=== PATIENT | male | born 1930 | race Caucasian/White ===

== ENCOUNTER 2022-05-30 12:14 | Inpatient (IN) ==
[2022-05-30] MEDS ORDERED: HALOPERIDOL LACTATE 5 MG/ML 1 ML VIAL IM STA (12:53)
[2022-05-30] MEDS ORDERED: HALOPERIDOL LACTATE 5 MG/ML 1 ML VIAL ONE (12:53)
[2022-05-30] MEDS ORDERED: SODIUM CHLORIDE 0.9% 500 ML IV SCH (13:00)
--- NOTE | 2022-05-30 13:16 | Emergency Department Note ---
Impression & Plan Dementia, Altered mental status, Agitation due to dementia ED Provider Note NAME: CRISTOPHER CASTELLANOS JR AGE: 89 SEX: M : 1930 ARRIVES VIA: Ambulance INFORMANT: Patient, EMS personnel, the family members ED PROVIDER(S): Julio Nicole DO CHIEF COMPLAINT: Altered mental status HPI: The patient is an 89-year-old male who presented to the emergency department by ambulance. The patient reportedly has been more combative and more confused especially over the last 24 to 48 hours. History was obtained from the prehospital personnel. The police as well as prehospital personnel were summoned to the patient's home. The family called the primary care physician and were advised to bring the patient to the emergency department because of his symptoms. There is no reported trauma. The patient himself does not offer any complaints. He denies having any nausea or vomiting. He denies having any trauma or fevers. Reportedly the patient was recently diagnosed with dementia. The initial call was for a mental health evaluation. ROS: See above HPI for pertinent positives & negatives. A total of 10 systems reviewed and were otherwise negative. PAST MEDICAL HISTORY: See Below PAST SURGICAL HISTORY: See Below FAMILY HISTORY: See Below SOCIAL HISTORY: See Below HOME MEDICATIONS: See Below ALLERGIES: See Below VITALS: See Below PHYSICAL EXAMINATION: GENERAL: The patient is awake and alert. He is very anxious appearing and combative. He is fighting with police as well as prehospital personnel. EYES: The conjunctivae are clear. The pupils are round and reactive. EARS, NOSE, MOUTH AND THROAT: The nose is without any evidence of any deformity. NECK: The neck is nontender and supple. RESPIRATORY: Normal respiratory effort is noted there is no evidence of wheezing rhonchi or rales CARDIOVASCULAR: Tachycardic but regular heart sounds were noted auscultation. There is no definite murmur. GASTROINTESTINAL: The abdomen was soft and nondistended. There was some tenderness to palpation but no guarding rigidity. MUSCULOSKELETAL/EXTREMITIES: There is no evidence of gross deformity full range of motion is noted in the hips and shoulders. SKIN: Skin tears were noted in the right upper extremity. NEUROLOGIC: Patient is awake and oriented to person. He thinks the year is 2021. He is moving all extremities well. No facial droop was noted. MEDICAL DECISION MAKING: The patient is an 89-year-old male who presented to the emergency department for agitation. There is very little history obtained from the patient himself. Prehospital personnel report that the patient has had agitation and combative behavior at home. He does have a history of underlying dementia. The patient does not have any acute findings on CT of the head. He was hypertensive. The patient required restraint chemically as well as physically. The patient was reevaluated multiple times. On reevaluation he was significantly improved and at this time is much more calm. I do feel the patient would not be a good candidate for outpatient management of this condition. For this reason I discussed his case with the on-call [facility]. They have agreed to evaluate the patient in the emergency department for further management and disposition. After the patient was evaluated by the [facility] it was determined the patient was actually a [facility] patient. For this reason I also [facility] Triage Nursing notes reviewed. Prior medical records reviewed Vital Signs: reviewed and remarkable for bradycardia. Differential diagnosis: Infection, hypoglycemia, electrolyte abnormalities, overdose, toxicologic, cardiac sources, intracerebral event, neurologic, trauma, as well as other pathologies. ER treatment provided: See below Diagnostics interpreted by me: ECG: EKG was obtained in the emergency department. My interpretation is sinus rhythm at 96 bpm. PVCs were noted. LVH was suggested by voltage criteria. There were no acute ST segment abnormalities noted. This was compared to a tracing from December 22, 2014. No changes were noted. Cardiac Monitoring: An order was placed for continuous cardiac monitoring. The monitor shows a rate of 58 bpm with sinus bradycardia. Laboratory studies: As stated above and show below. Imaging studies: See below Radiographic imaging was reviewed by myself Consultation(s): I discussed this case with Dr. Arechiga who is on-call for the [facility]. I discussed this case with Sara who [facility] They will evaluate the patient in the emergency department. ED COURSE: Procedures: none Critical Care: I have personally spent greater than 45 minutes of critical care time in the direct management of this patient. This includes bedside care, interpretation of diagnostic studies, and testing, discussion with consultants, patient, and family members, and other required patient management activities. This 45 minutes is in excess of all separately billable procedures. Past Med/Surg History Medical History (Updated 05/30/22 @ 16:28 by Julio Nicole DO) Chest pain Irritation of both eyes Prostate ca Surgical History S/P cholecystectomy Family History Other Family history non-contributory Social History Smoking Status: Former smoker Tobacco Type: Cigarettes Feels Safe at Home: Yes Allergies Allergies Allergy/AdvReac Type Severity Reaction Status Date / Time No Known Allergies Allergy Unknown Verified 05/30/22 15:32 Home Meds Home Medications Medication Instructions Recorded Confirmed donepezil 10 mg tablet 10 mg PO DAILY 05/30/22 05/30/22 Results & Data (ED) Vital Signs Vital Signs - 24 hr 05/30/22 13:25 05/30/22 13:26 05/30/22 13:26 Temperature Source Oral Pulse Rate 68 Pulse Rate [Apical] Respiratory Rate 20 Blood Pressure 159/88 H Blood Pressure [Left Arm] Blood Pressure Mean 111 Blood Pressure Mean [Left Arm] Pulse Oximetry 93 Oxygen Delivery Method Room Air Sepsis Recent Fever Within 48 Hours No Sepsis New/Unexplained Change in Mental Status Yes Sepsis Action Taken by Nursing No Action Required 05/30/22 15:46 Temperature Source Pulse Rate Pulse Rate [Apical] 58 L Respiratory Rate 18 Blood Pressure Blood Pressure [Left Arm] 176/80 H Blood Pressure Mean Blood Pressure Mean [Left Arm] 112 Pulse Oximetry 94 Oxygen Delivery Method Room Air Sepsis Recent Fever Within 48 Hours Sepsis New/Unexplained Change in Mental Status Sepsis Action Taken by [facility] Medications Current Medication List: was personally reviewed by me Laboratory Data Attestation: I reviewed the patient's lab results. 05/30/22 13:15 05/30/22 13:15 Lab Results 05/30/22 05/30/22 05/30/22 Range/Units 13:15 13:15 13:15 WBC 7.64 (4.8-10.8) K/ul RBC 4.58 L (4.63-6.08) M/uL Hgb 14.8 (14.0-18.0) g/dl Hct 43.0 (40.1-51.0) % MCV 93.9 (80.0-100.0) fL MCH 32.3 (25.0-34.0) pg MCHC 34.4 (32.0-36.0) g/dL RDW Std Deviation 45.1 (36.4-46.3) fL RDW Coeff of Oracio 13.1 (11.5-14.5) % Plt Count 188 (130-400) K/uL MPV 10.7 (9.4-12.4) fL Immature Gran % (Auto) 0.4 % Neut % (Auto) 81.4 % Lymph % (Auto) 7.5 % [place] % (Auto) 9.6 % Eos % (Auto) 0.7 % Baso % (Auto) 0.4 % Neut # (Auto) 6.23 (1.4-6.5) K/uL Lymph # (Auto) 0.57 L (1.2-3.4) K/uL [place] # (Auto) 0.73 (0.24-0.82) K/uL Eos # (Auto) 0.05 (0-0.50) K/uL Baso # (Auto) 0.03 (0-0.2) K/uL Immature Gran # (Auto) 0.03 H (0.00-0.02) K/uL PT 10.9 (9.0-12.0) Seconds INR 1.0 (0.9-1.1) APTT 28.8 (21.0-31.0) Seconds PTT Ratio 1.0 Sodium 141 (136-145) mmol/L Potassium 4.4 (3.5-5.1) mmol/L Chloride 104 (98-107) mmol/L Carbon Dioxide 29 (21-32) mmol/L Anion Gap 8 (3-11) BUN 29 H (6-23) mg/dl Creatinine 0.88 (0.6-1.4) mg/dl Est Cr Clr Drug Dosing 43.5 ml/min Est GFR ( Amer) 88.3 ml/min Est GFR (Non-Af Amer) 76.2 ml/min BUN/Creatinine Ratio 33.0 H (10-20) Glucose 147 H (70-99(Fasting)) mg/dl Calcium 9.3 (8.5-10.1) mg/dl Magnesium 2.2 (1.7-2.4) mg/dl Total Bilirubin 0.6 (0.2-1.0) mg/dl AST 22 (13-39) U/L ALT 20 (7-52) U/L Alkaline Phosphatase 86 (34-104) U/L Total Creatine Kinase 203 (30-223) U/L Troponin I High Sens 21.2 H (0-20) pg/ml Total Protein 7.1 (6.0-8.3) gm/dl Albumin 4.3 (3.4-5.0) gm/dl Globulin 2.8 (2.5-4.0) gm/dl Albumin/Globulin Ratio 1.5 (0.9-2) TSH (0.300-4.500) uIu/ml Ethyl Alcohol mg/dL (<10.0) mg/dl SARS-CoV-2, RNA, NAAT (NEGATIVE) 05/30/22 05/30/22 05/30/22 Range/Units 13:15 13:15 14:06 WBC (4.8-10.8) K/ul RBC (4.63-6.08) M/uL Hgb (14.0-18.0) g/dl Hct (40.1-51.0) % MCV (80.0-100.0) fL MCH (25.0-34.0) pg MCHC (32.0-36.0) g/dL RDW Std Deviation (36.4-46.3) fL RDW Coeff of Oracio (11.5-14.5) % Plt Count (130-400) K/uL MPV (9.4-12.4) fL Immature Gran % (Auto) % Neut % (Auto) % Lymph % (Auto) % [place] % (Auto) % Eos % (Auto) % Baso % (Auto) % Neut # (Auto) (1.4-6.5) K/uL Lymph # (Auto) (1.2-3.4) K/uL [place] # (Auto) (0.24-0.82) K/uL Eos # (Auto) (0-0.50) K/uL Baso # (Auto) (0-0.2) K/uL Immature Gran # (Auto) (0.00-0.02) K/uL PT (9.0-12.0) Seconds INR (0.9-1.1) APTT (21.0-31.0) Seconds PTT Ratio Sodium (136-145) mmol/L Potassium (3.5-5.1) mmol/L Chloride (98-107) mmol/L Carbon Dioxide (21-32) mmol/L Anion Gap (3-11) BUN (6-23) mg/dl Creatinine (0.6-1.4) mg/dl Est Cr Clr Drug Dosing ml/min Est GFR ( Amer) ml/min Est GFR (Non-Af Amer) ml/min BUN/Creatinine Ratio (10-20) Glucose (70-99(Fasting)) mg/dl Calcium (8.5-10.1) mg/dl Magnesium (1.7-2.4) mg/dl Total Bilirubin (0.2-1.0) mg/dl AST (13-39) U/L ALT (7-52) U/L Alkaline Phosphatase (34-104) U/L Total Creatine Kinase (30-223) U/L Troponin I High Sens (0-20) pg/ml Total Protein (6.0-8.3) gm/dl Albumin (3.4-5.0) gm/dl Globulin (2.5-4.0) gm/dl Albumin/Globulin Ratio (0.9-2) TSH 2.301 (0.300-4.500) uIu/ml Ethyl Alcohol mg/dL < 10.0 (<10.0) mg/dl SARS-CoV-2, RNA, NAAT NEGATIVE (NEGATIVE) Administered Medications Sodium Chloride (Nss 1000ml) 1,000 mls @ 999 mls/hr IV .Q1H1M ONE Stop: 05/30/22 17:14 Last Admin: 05/30/22 16:41 Dose: 999 mls/hr Documented By: OL Discontinued Medications Haloperidol Lactate (Haloperidol Lactate 5 Mg/Ml 1 Ml Vial) Confirm Administered Dose 10 mg .ROUTE .STK-MED ONE Stop: 05/30/22 12:54 Last Admin: 05/30/22 14:20 Dose: Not Given Documented By: MADAN Haloperidol Lactate (Haloperidol Lactate 5 Mg/Ml 1 Ml Vial) 10 mg IM NOW STA Stop: 05/30/22 12:54 Last Admin: 05/30/22 13:04 Dose: 10 mg Documented By: MADAN Sodium Chloride (Nss) 500 mls @ 999 mls/hr IV .Q31M JASON Stop: 05/30/22 13:30 Last Infusion: 05/30/22 15:02 Dose: 0 mls/hr Documented By: Admin: 05/30/22 14:20 Dose: 999 mls/hr Documented By: MADAN Lorazepam (Lorazepam 2 Mg/1 Ml Vial) 1 mg IV NOW STA Stop: 05/30/22 14:05 Last Admin: 05/30/22 14:19 Dose: 1 mg Documented By: MADAN Midazolam HCl (Midazolam Hcl 1 Mg/Ml 2ml Vial) Confirm Administered Dose 2 mg .ROUTE .STK-MED ONE Stop: 05/30/22 15:04 Last Admin: 05/30/22 16:08 Dose: Not Given Documented By: ESTER Midazolam HCl (Midazolam Hcl 1 Mg/Ml 2ml Vial) 1 mg IV NOW STA Stop: 05/30/22 15:56 Last Admin: 05/30/22 15:18 Dose: 1 mg Documented By: ESTER Imaging Data Radiologist's Impression: Abdomen/Pelvis CT 05/30/22 12:53 CT SCAN OF THE ABDOMEN AND PELVIS WITHOUT IV CONTRAST CLINICAL HISTORY: Change in mental status. COMPARISON STUDY: Abdominal radiographs dated 07/11/2020. Chest CT dated 12/22/2014. TECHNIQUE: CT scan of the abdomen and pelvis is performed from the lung bases to the proximal femora. Images are reviewed in the axial, sagittal, and coronal planes. IV contrast was not administered for this examination as per the referring clinician. Note that the examination was performed in significantly suboptimal fashion without IV contrast. The examination is significantly degraded by motion artifact, as well as by streak artifact from the arms which could not be elevated above the abdomen. A dose lowering technique was utilized adhering to the principles of ALARA. CT DOSE: 2290.48 mGy.cm FINDINGS: Lung bases: There is mild aneurysmal dilatation of the ascending thoracic aorta. This measures up to 4.0 cm in diameter. The heart is enlarged and without pericardial effusion. The coronary arteries are densely calcified. The main pulmonary arteries are significantly dilated suggesting pulmonary artery hypertension. Evaluation of the lung bases is significantly degraded by motion artifact. Emphysematous change is suspected. There is an 8 mm right upper lobe pulmonary nodule in the minor fissure seen on image #55. This is unchanged from [address] and of doubtful significance. Scarring/atelectasis is present at both lung bases. No airspace consolidation or pleural effusion is identified. Liver: Evaluation of the liver is degraded by streak artifact. The unenhanced liver is normal in size, contour, and attenuation. There is no intrahepatic biliary ductal dilatation. Gallbladder: Surgically absent noting clips in the gallbladder fossa. Spleen: Normal in size and attenuation. Pancreas: The unenhanced pancreas is grossly unremarkable. Adrenal glands: Unremarkable. Kidneys: The unenhanced kidneys demonstrate cortical atrophy and are without hydronephrosis. No renal calculi are clearly identified. Bilateral renal cysts measure up to 3.5 cm. Abdominal vasculature: There is advanced atherosclerotic calcification and ectasia of the abdominal aorta. There is calcified intraluminal thrombus versus a chronic dissection of the mid abdominal aorta seen on image #216. Bowel: There is mild colonic diverticulosis without CT evidence of acute diverticulitis. No bowel obstruction is seen. There is moderate constipation. The appendix is normal as visualized. Peritoneum: There is no intraperitoneal free air or abdominal ascites. Lymphadenopathy: None. Pelvic viscera: The prostate gland is surgically absent. The bladder is significantly distended but otherwise grossly unremarkable. Surgical clips are seen throughout the pelvis. Skeletal structures: The skeletal structures are osteopenic. No lytic or blastic lesions are seen. There is advanced lumbosacral spondylosis. Bilateral pars defects are seen at L4 with grade 1 anterolisthesis at L4-L5. There is an age- indeterminate but chronic-appearing superior end plate compression deformity of L1. IMPRESSION: 1. Significantly suboptimal examination without IV contrast. There is also severe streak and motion artifact. 2. No acute infectious or inflammatory findings are identified in the abdomen or pelvis. 3. Cardiomegaly and emphysema. 4. Moderate constipation. 5. Bladder distention. 6. Mild aneurysmal dilatation of the ascending thoracic aorta which measures up to 4.0 cm. 7. Additional chronic findings as above. ACT 112: Negative or not required by law. Electronically signed by: Se Lester M.D. 05/30/2022 3:44 PM Chest X-Ray 05/30/22 12:53 XR chest 1V portable CLINICAL HISTORY: weakness COMPARISON STUDY: Chest CT December 22, 2014 and chest radiograph July 11, 2020. FINDINGS: Elevation of the right hemidiaphragm is again noted. There is mild cardiomegaly without evidence for pulmonary edema. There is no pneumothorax or pleural effusion. No consolidation is identified to suggest pneumonia. Right infrahilar opacity likely reflects summation artifact. IMPRESSION: No definite acute findings. A right infrahilar density likely reflects summation artifact. Consolidation could appear similar. ACT 112: Negative or not required by law. Electronically signed by: Kulwant Barriga M.D. 05/30/2022 1:[address] 05/30/22 12:[address] DOSE: HISTORY: Altered mental status. TECHNIQUE: Multiaxial CT images of the head were performed without the use of intravenous contrast. Automated exposure control was utilized for this study. A dose lowering technique was utilized adhering to the principles of ALARA. Comparison: Brain MRI 08/20/2010. Findings: Significant motion artifact. The paranasal sinuses and mastoid air cells are clear. The calvarium and skull base are intact. There is no mass, hematoma, midline shift, acute infarct. White matter hypodensity is nonspecific but suggestive of microvascular ischemic change. The ventricles and sulci demonstrate mild age-related involutional changes. Impression: Significant motion artifact. No definite acute intracranial abnormality. ACT 112: Negative or not required by law. Electronically signed by: Nilesh Meadows M.D. 05/30/2022 3:30 PM Discharge Plan Visit Data Chief Complaint: Mental Health Evaluation Stated Complaint: AGGRESSIVE, MHID ED Provider: Julio Nicole Discharge Problem: Dementia, Altered mental status, Agitation due to dementia Patient Disposition: Being Evaluated by Hospitalist Forms Stand Alone Forms: [facility], Suicide Prevention Resources Prescriptions Prescriptions: No Action donepezil 10 mg tablet 10 mg PO DAILY Rx Instructions: FILLED 05/22/22 FOR 30 DAYS/30 TABS. Referrals Referrals: Butch Ratliff DO [Physician] - : Dementia Qualifiers: Dementia type: unspecified type Dementia severity: unspecified severity Dementia behavioral or psychological symptom: unspecified whether behavioral, psychotic, or mood disturbance or anxiety Qualified Code(s): F03.90 - Unspecified dementia, unspecified severity, without behavioral disturbance, psychotic disturbance, mood disturbance, and anxiety Altered mental status Qualifiers: Altered mental status type: unspecified Qualified Code(s): R41.82 - Altered mental status, unspecified
--- NOTE | 2022-05-30 13:35 | XRay Report ---
XR chest 1V portable CLINICAL HISTORY: weakness COMPARISON STUDY: Chest CT December 22, 2014 and chest radiograph July 11, 2020. FINDINGS: Elevation of the right hemidiaphragm is again noted. There is mild cardiomegaly without estuardo dence for pulmonary edema. There is no pneumothorax or pleural effusion. No consolidation is identifi ed to suggest pneumonia. Right infrahilar opacity likely reflects summation artifact. IMPRESSION: No definite acute findings. A right infrahilar density likely reflects summation artifac t. Consolidation could appear similar. ACT 112: Negative or not required by law. Electronically signed by: Kulwant Barriga M.D. 05/30/2022 1:33 PM
[2022-05-30 13:38] LABS: Basophils # (auto) 0.03 K/uL (0-0.2); Basophils % (auto) 0.4 %; Eosinophils # (auto) 0.05 K/uL (0-0.50); Eosinophils % (auto) 0.7 %; Hemoglobin 14.8 g/dl (14.0-18.0); Immature Granulocytes # (auto) 0.03 K/uL (0.00-0.02); Immature Granulocytes % (auto) 0.4 %; Lymphocytes # (auto) 0.57 K/uL (1.2-3.4); Lymphocytes % (auto) 7.5 %; Mean Corpuscular Hemoglobin 32.3 pg (25.0-34.0); Mean Corpuscular Hgb Conc 34.4 g/dL (32.0-36.0); Mean Corpuscular Volume 93.9 fL (80.0-100.0); Mean Platelet Volume 10.7 fL (9.4-12.4); Monocytes # (auto) 0.73 K/uL (0.24-0.82); Monocytes % (auto) 9.6 %; Neutrophils # (auto) 6.23 K/uL (1.4-6.5); Neutrophils % (auto) 81.4 %; Platelet Count 188 K/uL (130-400); RDW Coefficient of Variation 13.1 % (11.5-14.5); RDW Standard Deviation 45.1 fL (36.4-46.3); Red Blood Count 4.58 M/uL (4.63-6.08); White Blood Count 7.64 K/ul (4.8-10.8)
[2022-05-30 13:49] LABS: Partial Thromboplastin Time 28.8 Seconds (21.0-31.0); Prothrombin Time 10.9 Seconds (9.0-12.0)
[2022-05-30] MEDS ORDERED: LORazepam 2 MG/1 ML VIAL IV STA (14:04)
[2022-05-30 14:08] LABS: Albumin Globulin Ratio 1.5 (0.9-2); Albumin Level 4.3 gm/dl (3.4-5.0); Bilirubin,Total 0.6 mg/dl (0.2-1.0); Calcium 9.3 mg/dl (8.5-10.1); Creatinine Clr Calc Pharmacy 43.5 ml/min; Est GFR (African American) 88.3 ml/min; Est GFR (Non-African American) 76.2 ml/min; Globulin 2.8 gm/dl (2.5-4.0); Magnesium 2.2 mg/dl (1.7-2.4); Potassium 4.4 mmol/L (3.5-5.1); Total Protein 7.1 gm/dl (6.0-8.3)
[2022-05-30 14:10] LABS: Troponin I High Sensitivity 21.2 pg/ml (0-20)
[2022-05-30] MEDS ORDERED: MIDAZOLAM HCL 1 MG/ML 2ML VIAL ONE (15:03)
--- NOTE | 2022-05-30 15:31 | CT Scan Report ---
HEAD CT NONCONTRAST CT DOSE: HISTORY: Altered mental status. TECHNIQUE: Multiaxial CT images of the head were performed without the use of intravenous contrast. A utomated exposure control was utilized for this study. A dose lowering technique was utilized adheri ng to the principles of ALARA. Comparison: Brain MRI 08/20/2010. Findings: Significant motion artifact. The paranasal sinuses and mastoid air cells are clear. The arnaud varium and skull base are intact. There is no mass, hematoma, midline shift, acute infarct. White mat ter hypodensity is nonspecific but suggestive of microvascular ischemic change. The ventricles and otero lci demonstrate mild age-related involutional changes. Impression: Significant motion artifact. No definite acute intracranial abnormality. ACT 112: Negative or not required by law. Electronically signed by: Nilesh Meadows M.D. 05/30/2022 3:30 PM
--- NOTE | 2022-05-30 15:45 | CT Scan Report ---
CT SCAN OF THE ABDOMEN AND PELVIS WITHOUT IV CONTRAST CLINICAL HISTORY: Change in mental status. COMPARISON STUDY: Abdominal radiographs dated 07/11/2020. Chest CT dated 12/22/2014. TECHNIQUE: CT scan of the abdomen and pelvis is performed from the lung bases to the proximal femora. Images are reviewed in the axial, sagittal, and coronal planes. IV contrast was not administered for this examination as per the referring clinician. Note that the examination was performed in signific antly suboptimal fashion without IV contrast. The examination is significantly degraded by motion art ifact, as well as by streak artifact from the arms which could not be elevated above the abdomen. A d ose lowering technique was utilized adhering to the principles of ALARA. CT DOSE: 2290.48 mGy.cm FINDINGS: Lung bases: There is mild aneurysmal dilatation of the ascending thoracic aorta. This measures up to 4.0 cm in diameter. The heart is enlarged and without pericardial effusion. The coronary arteries are densely calcified. The main pulmonary arteries are significantly dilated suggesting pulmonary artery hypertension. Evaluation of the lung bases is significantly degraded by motion artifact. Emphysemato us change is suspected. There is an 8 mm right upper lobe pulmonary nodule in the minor fissure seen on image #55. This is unchanged from [address] and of doubtful significance. Scarring/atelectasis is present at both lung bases. No airspace consolidation or pleural effusion is identified. Liver: Evaluation of the liver is degraded by streak artifact. The unenhanced liver is normal in size , contour, and attenuation. There is no intrahepatic biliary ductal dilatation. Gallbladder: Surgically absent noting clips in the gallbladder fossa. Spleen: Normal in size and attenuation. Pancreas: The unenhanced pancreas is grossly unremarkable. Adrenal glands: Unremarkable. Kidneys: The unenhanced kidneys demonstrate cortical atrophy and are without hydronephrosis. No renal calculi are clearly identified. Bilateral renal cysts measure up to 3.5 cm. Abdominal vasculature: There is advanced atherosclerotic calcification and ectasia of the abdominal a davin. There is calcified intraluminal thrombus versus a chronic dissection of the mid abdominal aorta seen on image #216. Bowel: There is mild colonic diverticulosis without CT evidence of acute diverticulitis. No bowel obs truction is seen. There is moderate constipation. The appendix is normal as visualized. Peritoneum: There is no intraperitoneal free air or abdominal ascites. Lymphadenopathy: None. Pelvic viscera: The prostate gland is surgically absent. The bladder is significantly distended but o therwise grossly unremarkable. Surgical clips are seen throughout the pelvis. Skeletal structures: The skeletal structures are osteopenic. No lytic or blastic lesions are seen. Th ere is advanced lumbosacral spondylosis. Bilateral pars defects are seen at L4 with grade 1 anterolis thesis at L4-L5. There is an age-indeterminate but chronic-appearing superior end plate compression d eformity of L1. IMPRESSION: 1. Significantly suboptimal examination without IV contrast. There is also severe streak and motion a rtifact. 2. No acute infectious or inflammatory findings are identified in the abdomen or pelvis. 3. Cardiomegaly and emphysema. 4. Moderate constipation. 5. Bladder distention. 6. Mild aneurysmal dilatation of the ascending thoracic aorta which measures up to 4.0 cm. 7. Additional chronic findings as above. ACT 112: Negative or not required by law. Electronically signed by: Se Lester M.D. 05/30/2022 3:44 PM
[2022-05-30] MEDS ORDERED: MIDAZOLAM HCL 1 MG/ML 2ML VIAL IV STA (15:55)
[2022-05-30] MEDS ORDERED: SODIUM CHLORIDE 0.9% 1000ML 1,000 ML IV ONE (16:14)
--- NOTE | 2022-05-30 16:14 | Electrocardiogram Report ---
Test Reason : Blood Pressure : / mmHG Vent. Rate : 096 BPM Atrial Rate : 096 BPM P-R Int : 140 ms QRS Dur : 080 ms QT Int : 352 ms P-R-T Axes : 044 002 060 degrees QTc Int : 444 ms Poor data quality, interpretation may be adversely affected Sinus rhythm with occasional Premature atrial complexes Otherwise normal ECG When compared with ECG of 22-DEC-2014 06:30, Vent. rate has increased BY 55 BPM QT has lengthened Confirmed by Julio Blank ([id number]) on 05/30/2022 4:13:33 PM Referred By: REFERRED SELF Confirmed By:Julio Blank
[2022-05-30] MEDS ORDERED: OLANZapine 10 MG/2.1 ML SDV IM STA (17:52)
[2022-05-30 18:10] LABS: Appearance Urine Clear (Clear); Bilirubin Urine Negative (Negative); Blood Urine Negative (Negative); Color Urine Yellow; Glucose Urine UA Negative (Negative); Ketones Urine Trace (Negative); Leukocyte Esterase Urine Negative (Negative); Nitrite Urine Negative (Negative); Protein Urine Negative (Negative); Specific Gravity Urine 1.019 (1.000-1.030); Urobilinogen Urine Negative (Negative); pH Urine 5.5 (4.5-7.5)
--- NOTE | 2022-05-30 18:59 | History & Physical Report ---
Date of Service May 30, 2022 Assessment & Plan (1) Agitation due to dementia: Plan: Admit to [facility] Patient sent to ED today for agitation at home. Patient lives with his twin sister. In the ED, patient continues to be extremely aggressive and attempting to hit staff, refuse care despite IM Haldol 10 mg, IV lorazepam 1 mg, IV midazolam 1 mg. Found to have significant urinary retention which may be contributing to patient's agitation. Hold home donepezil due to urinary retention, start Seroquel 25 mg HS, IM Zyprexa as needed Psych consult Case management to follow, likely will need placement (2) Urinary retention: (3) Urethral stricture: Plan: History of prostate cancer s/p prostatectomy and urethral stricture. Per review of records, patient previously used to self cath. Bladder scan showed > 1L, Hernández placed Hold donepezil Void trial as appropriate, may need urology eval DVT prophylaxis SCDs, avoid pharmacologic prophylaxis due to significant aggression History of Present Illness Chief Complaint: Agitation Primary Care Provider: Shabana Justin MD 89-year-old male with PMH dementia, prostate cancer s/p prostatectomy, urethral stricture, and other problems listed below who presents to the ED for evaluation of agitation. History currently unobtainable from the patient. History obtained from review of medical record as well as patient's twin sister with whom he lives by Dr. Fan. Patient has been having increased agitation over the past few weeks. EMS called by sister today due to agitation. In the ED, patient received IM Haldol, IV lorazepam, IV Versed, IVF. He continues to have significant agitation. He was found to have urinary retention and Hernández catheter was placed. Labs unremarkable. Allergies Allergy/AdvReac Type Severity Reaction Status Date / Time No Known Allergies Allergy Unknown Verified 05/30/22 15:32 Home Medications Medication Instructions Recorded Confirmed Type donepezil 10 mg tablet 10 mg PO DAILY 05/30/22 05/30/22 History Past Med/Surg History Medical History Dementia Prostate ca Urethral stricture Surgical History H/O hernia repair History of prostatectomy S/P cholecystectomy Family History Other Family history non-contributory Social History Smoking Status: Former smoker Tobacco Type: Cigarettes Feels Safe at Home: Yes Review of Systems Review of Systems: Unobtainable due to cognitive status Physical Exam Physical Exam: Limited physical exam due to patient attempting to hit staff Constitutional: WD/WN, vitals as above Respiratory: normal respiratory effort, lungs clear to auscultation Cardiovascular: Rate/Rhythm: regular rate and regular rhythm Vessels: normal peripheral pulses Extremities: no edema Skin: no rashes, warm and dry Neurologic: moves all extremities Psychiatric: Orientation: alert; + not oriented to person, + not oriented to place, + not oriented to time and + uncooperative Patient continually attempting to hit staff, refused care, agitated Results & Data Results & Data ([facility]) Vital Signs (Past 12 Hours) Vital Signs Pulse Pulse Resp BP BP Pulse Ox O2 Del Method 05/30/22 18:42 50 L 18 131/70 95 Room Air 05/30/22 17:00 98 H 18 159/89 H 95 Room Air 05/30/22 15:46 58 L 18 176/80 H 94 Room Air 05/30/22 13:26 68 20 159/88 H 93 05/30/22 13:25 Room Air Laboratory Results Short CBC 05/30/22 Range/Units 13:15 WBC 7.64 (4.8-10.8) K/ul Hgb 14.8 (14.0-18.0) g/dl Hct 43.0 (40.1-51.0) % Plt Count 188 (130-400) K/uL BMP 05/30/22 13:15 Sodium 141 Potassium 4.4 Chloride 104 Carbon Dioxide 29 BUN 29 H Creatinine 0.88 Glucose 147 H Calcium 9.3 Cardiac Enzymes 05/30/22 Range/Units 13:15 Total Creatine Kinase 203 (30-223) U/L Liver Function 05/30/22 Range/Units 13:15 Total Bilirubin 0.6 (0.2-1.0) mg/dl AST 22 (13-39) U/L ALT 20 (7-52) U/L Alkaline Phosphatase 86 (34-104) U/L Albumin 4.3 (3.4-5.0) gm/dl Urine 05/30/22 Range/Units Unknown Urine Color Yellow Urine Appearance Clear (Clear) Urine pH 5.5 (4.5-7.5) Ur Specific Goodman 1.019 (1.000-1.030) Urine Protein Negative (Negative) Urine Glucose (UA) Negative (Negative) Diagnostic Findings Abdomen/Pelvis CT 05/30/22 12:53 CT SCAN OF THE ABDOMEN AND PELVIS WITHOUT IV CONTRAST CLINICAL HISTORY: Change in mental status. COMPARISON STUDY: Abdominal radiographs dated 07/11/2020. Chest CT dated 12/22/2014. TECHNIQUE: CT scan of the abdomen and pelvis is performed from the lung bases to the proximal femora. Images are reviewed in the axial, sagittal, and coronal planes. IV contrast was not administered for this examination as per the referring clinician. Note that the examination was performed in significantly suboptimal fashion without IV contrast. The examination is significantly degraded by motion artifact, as well as by streak artifact from the arms which could not be elevated above the abdomen. A dose lowering technique was utilized adhering to the principles of ALARA. CT DOSE: 2290.48 mGy.cm FINDINGS: Lung bases: There is mild aneurysmal dilatation of the ascending thoracic aorta. This measures up to 4.0 cm in diameter. The heart is enlarged and without pericardial effusion. The coronary arteries are densely calcified. The main pulmonary arteries are significantly dilated suggesting pulmonary artery hypertension. Evaluation of the lung bases is significantly degraded by motion artifact. Emphysematous change is suspected. There is an 8 mm right upper lobe pulmonary nodule in the minor fissure seen on image #55. This is unchanged from [address] and of doubtful significance. Scarring/atelectasis is present at both lung bases. No airspace consolidation or pleural effusion is identified. Liver: Evaluation of the liver is degraded by streak artifact. The unenhanced liver is normal in size, contour, and attenuation. There is no intrahepatic biliary ductal dilatation. Gallbladder: Surgically absent noting clips in the gallbladder fossa. Spleen: Normal in size and attenuation. Pancreas: The unenhanced pancreas is grossly unremarkable. Adrenal glands: Unremarkable. Kidneys: The unenhanced kidneys demonstrate cortical atrophy and are without hydronephrosis. No renal calculi are clearly identified. Bilateral renal cysts measure up to 3.5 cm. Abdominal vasculature: There is advanced atherosclerotic calcification and ectasia of the abdominal aorta. There is calcified intraluminal thrombus versus a chronic dissection of the mid abdominal aorta seen on image #[id number]. Bowel: There is mild colonic diverticulosis without CT evidence of acute diverticulitis. No bowel obstruction is seen. There is moderate constipation. The appendix is normal as visualized. Peritoneum: There is no intraperitoneal free air or abdominal ascites. Lymphadenopathy: None. Pelvic viscera: The prostate gland is surgically absent. The bladder is significantly distended but otherwise grossly unremarkable. Surgical clips are seen throughout the pelvis. Skeletal structures: The skeletal structures are osteopenic. No lytic or blastic lesions are seen. There is advanced lumbosacral spondylosis. Bilateral pars defects are seen at L4 with grade 1 anterolisthesis at L4-L5. There is an age- indeterminate but chronic-appearing superior end plate compression deformity of L1. IMPRESSION: 1. Significantly suboptimal examination without IV contrast. There is also severe streak and motion artifact. 2. No acute infectious or inflammatory findings are identified in the abdomen or pelvis. 3. Cardiomegaly and emphysema. 4. Moderate constipation. 5. Bladder distention. 6. Mild aneurysmal dilatation of the ascending thoracic aorta which measures up to 4.0 cm. 7. Additional chronic findings as above. ACT 112: Negative or not required by law. Electronically signed by: Se Lester M.D. 05/30/2022 3:44 PM Chest X-Ray 05/30/22 12:53 XR chest 1V portable CLINICAL HISTORY: weakness COMPARISON STUDY: Chest CT December 22, 2014 and chest radiograph July 11, 2020. FINDINGS: Elevation of the right hemidiaphragm is again noted. There is mild cardiomegaly without evidence for pulmonary edema. There is no pneumothorax or pleural effusion. No consolidation is identified to suggest pneumonia. Right infrahilar opacity likely reflects summation artifact. IMPRESSION: No definite acute findings. A right infrahilar density likely reflects summation artifact. Consolidation could appear similar. ACT 112: Negative or not required by law. Electronically signed by: Kulwant Barriga M.D. 05/30/2022 1:[address] 05/30/22 12:[address] DOSE: HISTORY: Altered mental status. TECHNIQUE: Multiaxial CT images of the head were performed without the use of intravenous contrast. Automated exposure control was utilized for this study. A dose lowering technique was utilized adhering to the principles of ALARA. Comparison: Brain MRI 08/20/2010. Findings: Significant motion artifact. The paranasal sinuses and mastoid air cells are clear. The calvarium and skull base are intact. There is no mass, hematoma, midline shift, acute infarct. White matter hypodensity is nonspecific but suggestive of microvascular ischemic change. The ventricles and sulci demonstrate mild age-related involutional changes. Impression: Significant motion artifact. No definite acute intracranial abnormality. ACT 112: Negative or not required by law. Electronically signed by: Nilesh Meadows M.D. 05/30/2022 3:30 PM Code Status & VTE Plan VTE Prophylaxis Plan VTE Prophylaxis will be ordered: Yes Supervising Physician Co-Signing Physician Notes Patient seen and examined independently. Agree with above documentation by Sara BOYD. 89 yo M with PMHx of Alzheimer disease present with period of agitation. Lives with twin sister; Found to have urinary retention on physical examination. Hernández placed. Started on antipsychotics. psych consult for optimization of medications. Bowel regimen.
[2022-05-30] MEDS ORDERED: ACETAMINOPHEN 325 MG TAB PO PRN (19:35)
[2022-05-30] MEDS: D5W AND 1/2NSS 1,000 ML IV SCH (20:04)
[2022-05-30] MEDS ORDERED: QUEtiapine FUMARATE 25 MG TABLET PO SCH (21:00)
[2022-05-31] MEDS: OLANZapine 10 MG/2.1 ML SDV IM PRN ×2 (05:12→21:51)
[2022-05-31 06:48] LABS: Basophils # (auto) 0.03 K/uL (0-0.2); Basophils % (auto) 0.5 %; Eosinophils % (auto) 1.8 %; Hematocrit (blood only) 42.9 % (40.1-51.0); Hemoglobin 14.5 g/dl (14.0-18.0); Immature Granulocytes # (auto) 0.02 K/uL (0.00-0.02); Immature Granulocytes % (auto) 0.4 %; Lymphocytes # (auto) 0.59 K/uL (1.2-3.4); Lymphocytes % (auto) 10.5 %; Mean Corpuscular Hemoglobin 31.8 pg (25.0-34.0); Mean Corpuscular Hgb Conc 33.8 g/dL (32.0-36.0); Mean Corpuscular Volume 94.1 fL (80.0-100.0); Mean Platelet Volume 10.7 fL (9.4-12.4); Monocytes # (auto) 0.72 K/uL (0.24-0.82); Monocytes % (auto) 12.8 %; Neutrophils # (auto) 4.17 K/uL (1.4-6.5); Platelet Count 155 K/uL (130-400); RDW Coefficient of Variation 12.8 % (11.5-14.5); Red Blood Count 4.56 M/uL (4.63-6.08); White Blood Count 5.63 K/ul (4.8-10.8)
[2022-05-31 07:15] LABS: BUN Creatinine Ratio 20.3 (10-20); Calcium 8.8 mg/dl (8.5-10.1); Creatinine Clr Calc Pharmacy 51.7 ml/min; Est GFR (African American) 94.8 ml/min; Est GFR (Non-African American) 81.8 ml/min; Potassium 3.7 mmol/L (3.5-5.1)
[2022-05-31] MEDS: POLYETHYLENE (MIRALAX) 17 GM PACK PO SCH (08:26)
[2022-05-31] MEDS ORDERED: PNEUMOCOCCAL POLYSACCHARIDES 25 MCG/0.5 ML VIAL/SYR IM ONE (09:00)
[2022-05-31] MEDS ORDERED: INFLUENZA VACCINE HIGH DOSE PF 65+ 0.7 ML SYR IM ONE (09:00)
[2022-05-31] MEDS: D5W AND 1/2NSS 1,000 ML IV SCH (09:09)
--- NOTE | 2022-05-31 11:33 | Psychiatric Consultation ---
Date of Consultation May 31, 2022 Impression / Recommendations Impression This is a 89 yo old admitted for agitation and urinary retention. Diagnostically consistent with possible encephalopathy/delirium from urinary retention superimposed on dementia with behavioral disturbance. Goal in dementia is to avoid medication management of behaviors if possible by maximizing non- pharmacologic strategies for behavioral management. However, given worsening agitation/aggression agree with starting antipsychotic as risk/benefit profile now favors treatment. Note all antipsychotic medications carry black box warning for increased risk of all-cause mortality in setting of dementia. Zyprexa and seroquel can also contribute to urinary retention so recommend ongoing monitoring though Hernández catheter now in place. (1) Dementia with behavioral disturbance: (2) Urinary retention: (3) Major neurocognitive disorder: Plan -1-on-1 as needed at discretion of hospitalist given level of agitation -Agree with use of seroquel, given level of agitation consider titration to 50mg qhs and then option to add 25mg qAM if agitation persists. -Consider melatonin 3mg qhs if delirium component suspected -Continue medical workup to rule out and treat any underlying causes contributing to potential delirium, avoid or limit use of deliriogenic medications (benzodiazepines, opioids, anticholinergics) -Continue with delirium prevention measures: raising blinds during the day, closing at night, frequent re-orientation, contact with family/friends, explaining procedures/nursing care measures prior to physical contact, correct any hearing and visual impairments -For behavioral emergency: olanzapine 2.5 or 5 mg IM x 1 (DO NOT exceed 20mg per 24 hours, check EKG if repeated IM doses required, NEVER co-administer with IM or IV benzodiazepines). -Agree with primary team that if this does represent progression of dementia with increased behavioral disturbance then secure memory care placement may be preferred option vs return with sister Psych History Identifying Data 89 yo man with history of neurocognitive disorder and urinary retention/stricture admitted medically for increased agitation and urinary retention. Psychiatry consulted for recommendations for agitated behavior. Chief Complaint incoherent mumbling History of Present Illness Dominik was brought to the ED by his sister, with whom he lives, for increased agitation at home over the last few weeks. In the ED he was agitated and required IM haldol 10mg, IV lorazepam and IV midazolam. He is prescribed Aricept though this has been held due to concerns it is contributing to urinary retention. Required IM zyprexa yesterday afternoon following admission. Accepted po seroquel last night. This morning he required IM zyprexa for kicking staff and agitation with attempts to provide care such as bladder scan. He responded well to zyprexa with decreased agitation, slept for a bit and was then mumbling incoherently but without signs of irritability nor agitation on exam mid- morning. Allergies Allergy/AdvReac Type Severity Reaction Status Date / Time No Known Allergies Allergy Unknown Verified 05/30/22 15:32 Home Medications Medication Instructions Recorded Confirmed Type donepezil 10 mg tablet 10 mg PO DAILY 05/30/22 05/30/22 History Personal History Living Arrangements: Home Patient History Medical History Dementia Prostate ca Urethral stricture Surgical History H/O hernia repair History of prostatectomy S/P cholecystectomy Family History Other Family history non-contributory Social History Smoking Status: Former smoker Tobacco Type: Cigarettes Feels Safe at Home: Yes Physical Exam Psychiatric: Orientation: alert and oriented to person; + not oriented to place and + not oriented to time Apperance: + disheveled Eye Contact: + poor eye contact Motor Behavior: no abnormal motor movements Speech: + abnormal rate/rhythm/volume of speech (brief, incoherent ) Affect: + labile affect Mood: + irritable mood Thought Process: + looseness of associations Thought Content: + preoccupation Hallucinations: no auditory hallucinations and no visual hallucinations Cognition: + recent memory not intact, + attention not intact and + language not intact Insight: + severely impaired insight Judgement: + severely impaired judgement Vital Signs (Past 24 Hours): Last Vital Signs Temp 36.3 C L 05/31/22 07:33 Pulse 60 05/31/22 07:33 Resp 16 05/31/22 07:33 BP 160/63 H 05/31/22 07:33 Pulse Ox 98 05/31/22 07:33 O2 Del Method 05/31/22 07:33 Review of Systems Unobtainable due to cognitive status Results & Data (PS[facility]) Laboratory Results Na+normal Diagnostic Findings EKG QTc 444ms on 05/30/22 Medications Administered Dextrose/Sodium Chloride (D5w And 1/2nss) 1,000 mls @ 80 mls/hr IV .[id number] JASON Stop: 05/31/22 20:59 Last Admin: 05/31/22 09:09 Dose: 80 mls/hr Documented By: Infusion: 05/31/22 08:34 Dose: 80 mls/hr Documented By: Admin: 05/30/22 20:04 Dose: 80 mls/hr Documented By: PIA Olanzapine (Olanzapine 10 Mg/2.1 Ml Sdv) 5 mg IM Q8H PRN PRN Reason: Agitation Stop: 06/29/22 19:34 Last Admin: 05/31/22 05:12 Dose: 5 mg Documented By: PAYAM Polyethylene Glycol (Polyethylene (Miralax) 17 Gm Pack) 17 gm PO DAILY JASON Stop: 06/30/22 08:59 Last Admin: 05/31/22 08:26 Dose: Not Given Documented By: DEVIN Quetiapine Fumarate (Quetiapine Fumarate 25 Mg Tablet) 25 mg PO HS JASON Stop: 06/29/22 20:59 Last Admin: 05/30/22 20:41 Dose: 25 mg Documented By: PIA Coding Level of Care Code INP/OBS CONSULT LVL 2, 35 MIN Diagnoses Dementia with behavioral disturbance F03.918 Urinary retention R33.9 Major neurocognitive disorder F03.90
--- NOTE | 2022-05-31 13:59 | Hospitalist Progress Note ---
Date of Service May 31, 2022 Assessment & Plan (1) Agitation due to dementia: Plan: Patient sent to ED today for agitation at home. Patient lives with his twin sister. In the ED, patient continues to be extremely aggressive and attempting to hit staff, refuse care despite IM Haldol 10 mg, IV lorazepam 1 mg, IV midazolam 1 mg. Found to have significant urinary retention which may be contributing to patient's agitation. Plan; Appreciate psychiatry's recommendations; will uptitrate his Seroquel to 50 mg at this. Also, added melatonin 3 mg at bedtime Continue on Zyprexa as needed IM 5 mg every 8 hours. Continue one-to-one -Continue IV fluids for now till patient is able to drink water/eat. (2) Urinary retention: (3) Urethral stricture: Plan: History of prostate cancer s/p prostatectomy and urethral stricture. Per review of records, patient previously used to self cath. Bladder scan showed > 1L in the ED Hold donepezil Voiding trial after improvement in the mentation. DVT prophylaxis SCDs, avoid pharmacologic prophylaxis due to significant aggression Admission and Anticipated Discharge Date Admission Date: May 30, 2022 Subjective Patient continues to be agitated; he required four-point restraint along with IM Zyprexa yesterday. Review of Systems Review of Systems: Unobtainable due to mental health condition Physical Exam Physical Exam: Limited physical exam due to patient attempting to hit staff Constitutional: WD/WN, vitals as above Respiratory: normal respiratory effort, lungs clear to auscultation Cardiovascular: Rate/Rhythm: regular rate and regular rhythm Vessels: normal peripheral pulses Extremities: no edema Skin: no rashes, warm and dry Neurologic: moves all extremities Psychiatric: Orientation: alert; + not oriented to person, + not oriented to place, + not oriented to time and + uncooperative Patient continually attempting to hit staff, refused care, agitated Results & Data Results & Data ([facility]) Vital Signs (Past 12 Hours) Vital Signs Temp Pulse Resp BP Pulse Ox O2 Del Method 05/31/22 07:33 36.3 C L 60 16 160/63 H 98 Room Air Laboratory Results Laboratory Results WBC 5.63 K/ul (4.8-10.8) 05/31/22 06:16 RBC 4.56 M/uL (4.63-6.08) L 05/31/22 06:16 Hgb 14.5 g/dl (14.0-18.0) 05/31/22 06:16 Hct 42.9 % (40.1-51.0) 05/31/22 06:16 MCV 94.1 fL (80.0-100.0) 05/31/22 06:16 MCH 31.8 pg (25.0-34.0) 05/31/22 06:16 MCHC 33.8 g/dL (32.0-36.0) 05/31/22 06:16 RDW Std Deviation 44.0 fL (36.4-46.3) 05/31/22 06:16 RDW Coeff of [place]acio 12.8 % (11.5-14.5) 05/31/22 06:16 Plt Count 155 K/uL (130-400) 05/31/22 06:16 MPV 10.7 fL (9.4-12.4) 05/31/22 06:16 Immature Gran % (Auto) 0.4 % 05/31/22 06:16 Neut % (Auto) 74.0 % 05/31/22 06:16 Lymph % (Auto) 10.5 % 05/31/22 06:16 [place] % (Auto) 12.8 % 05/31/22 06:16 Eos % (Auto) 1.8 % 05/31/22 06:16 Baso % (Auto) 0.5 % 05/31/22 06:16 Neut # (Auto) 4.17 K/uL (1.4-6.5) 05/31/22 06:16 Lymph # (Auto) 0.59 K/uL (1.2-3.4) L 05/31/22 06:16 [place] # (Auto) 0.72 K/uL (0.24-0.82) 05/31/22 06:16 Eos # (Auto) 0.10 K/uL (0-0.50) 05/31/22 06:16 Baso # (Auto) 0.03 K/uL (0-0.2) 05/31/22 06:16 Immature Gran # (Auto) 0.02 K/uL (0.00-0.02) 05/31/22 06:16 PT 10.9 Seconds (9.0-12.0) 05/30/22 13:15 INR 1.0 (0.9-1.1) 05/30/22 13:15 APTT 28.8 Seconds (21.0-31.0) 05/30/22 13:15 PTT Ratio 1.0 05/30/22 13:15 Sodium 144 mmol/L (136-145) 05/31/22 06:16 Potassium 3.7 mmol/L (3.5-5.1) 05/31/22 06:16 Chloride 111 mmol/L (98-107) H 05/31/22 06:16 Carbon Dioxide 29 mmol/L (21-32) 05/31/22 06:16 Anion Gap 4 (3-11) 05/31/22 06:16 BUN 15 mg/dl (6-23) 05/31/22 06:16 Creatinine 0.74 mg/dl (0.6-1.4) 05/31/22 06:16 Est Cr Clr Drug Dosing 51.7 ml/min 05/31/22 06:16 Est GFR ( Amer) 94.8 ml/min 05/31/22 06:16 Est GFR (Non-Af Amer) 81.8 ml/min 05/31/22 06:16 BUN/Creatinine Ratio 20.3 (10-20) H 05/31/22 06:16 Glucose 118 mg/dl (70-99(Fasting)) H 05/31/22 06:16 Calcium 8.8 mg/dl (8.5-10.1) 05/31/22 06:16 Magnesium 2.2 mg/dl (1.7-2.4) 05/30/22 13:15 Total Bilirubin 0.6 mg/dl (0.2-1.0) 05/30/22 13:15 AST 22 U/L (13-39) 05/30/22 13:15 ALT 20 U/L (7-52) 05/30/22 13:15 Alkaline Phosphatase 86 U/L (34-104) 05/30/22 13:15 Total Creatine Kinase 203 U/L (30-223) 05/30/22 13:15 Troponin I High Sens 21.2 pg/ml (0-20) H 05/30/22 13:15 Total Protein 7.1 gm/dl (6.0-8.3) 05/30/22 13:15 Albumin 4.3 gm/dl (3.4-5.0) 05/30/22 13:15 Globulin 2.8 gm/dl (2.5-4.0) 05/30/22 13:15 Albumin/Globulin Ratio 1.5 (0.9-2) 05/30/22 13:15 Vitamin B12 758 pg/ml (180-914) 05/30/22 13:15 TSH 2.301 uIu/ml (0.300-4.500) 05/30/22 13:15 Urine Color Yellow 05/30/22 Unknown Urine Appearance Clear (Clear) 05/30/22 Unknown Urine pH 5.5 (4.5-7.5) 05/30/22 Unknown Ur Specific [place] 1.019 (1.000-1.030) 05/30/22 Unknown Urine Protein Negative (Negative) 05/30/22 Unknown Urine Glucose (UA) Negative (Negative) 05/30/22 Unknown Urine Ketones Trace (Negative) H 05/30/22 Unknown Urine Blood Negative (Negative) 05/30/22 Unknown Urine Nitrite Negative (Negative) 05/30/22 Unknown Urine Bilirubin Negative (Negative) 05/30/22 Unknown Urine Urobilinogen Negative (Negative) 05/30/22 Unknown Ur Leukocyte Esterase Negative (Negative) 05/30/22 Unknown Ethyl Alcohol mg/dL < 10.0 mg/dl (<10.0) 05/30/22 13:15 SARS-CoV-2, RNA, NAAT NEGATIVE (NEGATIVE) 05/30/22 14:06 Impressions Abdomen/Pelvis CT 05/30/22 12:53 CT SCAN OF THE ABDOMEN AND PELVIS WITHOUT IV CONTRAST CLINICAL HISTORY: Change in mental status. COMPARISON STUDY: Abdominal radiographs dated 07/11/2020. Chest CT dated 12/22/2014. TECHNIQUE: CT scan of the abdomen and pelvis is performed from the lung bases to the proximal femora. Images are reviewed in the axial, sagittal, and coronal planes. IV contrast was not administered for this examination as per the referring clinician. Note that the examination was performed in significantly suboptimal fashion without IV contrast. The examination is significantly degraded by motion artifact, as well as by streak artifact from the arms which could not be elevated above the abdomen. A dose lowering technique was utilized adhering to the principles of ALARA. CT DOSE: 2290.48 mGy.cm FINDINGS: Lung bases: There is mild aneurysmal dilatation of the ascending thoracic aorta. This measures up to 4.0 cm in diameter. The heart is enlarged and without pericardial effusion. The coronary arteries are densely calcified. The main pulmonary arteries are significantly dilated suggesting pulmonary artery hypertension. Evaluation of the lung bases is significantly degraded by motion artifact. Emphysematous change is suspected. There is an 8 mm right upper lobe pulmonary nodule in the minor fissure seen on image #55. This is unchanged from [address] and of doubtful significance. Scarring/atelectasis is present at both lung bases. No airspace consolidation or pleural effusion is identified. Liver: Evaluation of the liver is degraded by streak artifact. The unenhanced liver is normal in size, contour, and attenuation. There is no intrahepatic biliary ductal dilatation. Gallbladder: Surgically absent noting clips in the gallbladder fossa. Spleen: Normal in size and attenuation. Pancreas: The unenhanced pancreas is grossly unremarkable. Adrenal glands: Unremarkable. Kidneys: The unenhanced kidneys demonstrate cortical atrophy and are without hydronephrosis. No renal calculi are clearly identified. Bilateral renal cysts measure up to 3.5 cm. Abdominal vasculature: There is advanced atherosclerotic calcification and ectasia of the abdominal aorta. There is calcified intraluminal thrombus versus a chronic dissection of the mid abdominal aorta seen on image #216. Bowel: There is mild colonic diverticulosis without CT evidence of acute diverticulitis. No bowel obstruction is seen. There is moderate constipation. The appendix is normal as visualized. Peritoneum: There is no intraperitoneal free air or abdominal ascites. Lymphadenopathy: None. Pelvic viscera: The prostate gland is surgically absent. The bladder is significantly distended but otherwise grossly unremarkable. Surgical clips are seen throughout the pelvis. Skeletal structures: The skeletal structures are osteopenic. No lytic or blastic lesions are seen. There is advanced lumbosacral spondylosis. Bilateral pars defects are seen at L4 with grade 1 anterolisthesis at L4-L5. There is an age- indeterminate but chronic-appearing superior end plate compression deformity of L1. IMPRESSION: 1. Significantly suboptimal examination without IV contrast. There is also severe streak and motion artifact. 2. No acute infectious or inflammatory findings are identified in the abdomen or pelvis. 3. Cardiomegaly and emphysema. 4. Moderate constipation. 5. Bladder distention. 6. Mild aneurysmal dilatation of the ascending thoracic aorta which measures up to 4.0 cm. 7. Additional chronic findings as above. ACT 112: Negative or not required by law. Electronically signed by: Se Lester M.D. 05/30/2022 3:44 PM Chest X-Ray 05/30/22 12:53 XR chest 1V portable CLINICAL HISTORY: weakness COMPARISON STUDY: Chest CT December 22, 2014 and chest radiograph July 11, 2020. FINDINGS: Elevation of the right hemidiaphragm is again noted. There is mild cardiomegaly without evidence for pulmonary edema. There is no pneumothorax or pleural effusion. No consolidation is identified to suggest pneumonia. Right infrahilar opacity likely reflects summation artifact. IMPRESSION: No definite acute findings. A right infrahilar density likely reflects summation artifact. Consolidation could appear similar. ACT 112: Negative or not required by law. Electronically signed by: Kulwant Barriga M.D. 05/30/2022 1:[address] 05/30/22 12:[address] DOSE: HISTORY: Altered mental status. TECHNIQUE: Multiaxial CT images of the head were performed without the use of intravenous contrast. Automated exposure control was utilized for this study. A dose lowering technique was utilized adhering to the principles of ALARA. Comparison: Brain MRI 08/20/2010. Findings: Significant motion artifact. The paranasal sinuses and mastoid air cells are clear. The calvarium and skull base are intact. There is no mass, hematoma, midline shift, acute infarct. White matter hypodensity is nonspecific but suggestive of microvascular ischemic change. The ventricles and sulci demonstrate mild age-related involutional changes. Impression: Significant motion artifact. No definite acute intracranial abnormality. ACT 112: Negative or not required by law. Electronically signed by: Nilesh Meadows M.D. 05/30/2022 3:30 PM
[2022-05-31] MEDS: MELATONIN 3 MG TAB PO SCH (19:13)
[2022-05-31] MEDS: QUEtiapine FUMARATE 25 MG TABLET PO SCH (19:14)
[2022-06-01 06:32] LABS: Basophils # (auto) 0.02 K/uL (0-0.2); Basophils % (auto) 0.2 %; Eosinophils # (auto) 0.01 K/uL (0-0.50); Eosinophils % (auto) 0.1 %; Hematocrit (blood only) 41.7 % (40.1-51.0); Hemoglobin 14.4 g/dl (14.0-18.0); Immature Granulocytes # (auto) 0.04 K/uL (0.00-0.02); Immature Granulocytes % (auto) 0.4 %; Lymphocytes # (auto) 0.41 K/uL (1.2-3.4); Lymphocytes % (auto) 4.1 %; Mean Corpuscular Hemoglobin 32.6 pg (25.0-34.0); Mean Corpuscular Hgb Conc 34.5 g/dL (32.0-36.0); Mean Corpuscular Volume 94.3 fL (80.0-100.0); Mean Platelet Volume 10.7 fL (9.4-12.4); Monocytes # (auto) 0.79 K/uL (0.24-0.82); Neutrophils # (auto) 8.66 K/uL (1.4-6.5); Neutrophils % (auto) 87.2 %; Platelet Count 167 K/uL (130-400); RDW Standard Deviation 45.6 fL (36.4-46.3); Red Blood Count 4.42 M/uL (4.63-6.08); White Blood Count 9.93 K/ul (4.8-10.8)
[2022-06-01 07:02] LABS: BUN Creatinine Ratio 20.8 (10-20); Calcium 8.9 mg/dl (8.5-10.1); Creatinine Clr Calc Pharmacy 49.7 ml/min; Est GFR (African American) 93.2 ml/min; Est GFR (Non-African American) 80.5 ml/min; Potassium 4.1 mmol/L (3.5-5.1)
[2022-06-01] MEDS: POLYETHYLENE (MIRALAX) 17 GM PACK PO SCH (08:27)
--- NOTE | 2022-06-01 08:34 | XRay Report ---
XR chest 1V portable HISTORY: Possible aspiration. Assess for pneumonia. COMPARISON: Chest 05/30/2022. FINDINGS: No pneumothorax. No pleural effusions. A few bibasilar linear densities consistent with sub segmental atelectasis. Otherwise, no new focal lung consolidations to suggest a pneumonia. No evidenc e for pulmonary edema. Chronic elevation the right hemidiaphragm again noted. The heart remains top n ormal in size. There are old, healed bilateral rib fractures. No evidence for pulmonary edema. IMPRESSION: 1. A few bibasilar linear densities consistent with subsegmental atelectasis. This is similar to the prior studies. 2. Chronic elevation of the right hemidiaphragm. ACT 112: Negative or not required by law. Electronically signed by: Nilesh Meadows M.D. 06/01/2022 8:32 AM
--- NOTE | 2022-06-01 13:27 | Hospitalist Progress Note ---
Date of Service June 01, 2022 Assessment & Plan (1) Agitation due to dementia: Plan: Patient sent to ED today for agitation at home. Patient lives with his twin sister. In the ED, patient continues to be extremely aggressive and attempting to hit staff, refuse care despite IM Haldol 10 mg, IV lorazepam 1 mg, IV midazolam 1 mg. Found to have significant urinary retention which may be contributing to patient's agitation. Plan; Appreciate psychiatry's recommendations; will uptitrate his Seroquel to 50 mg at this. Also, added melatonin 3 mg at bedtime Continue on Zyprexa as needed IM 5 mg every 8 hours. -We will discontinue one-to-one as patient is less agitated; will do every 15 checks. (2) Urinary retention: (3) Urethral stricture: Plan: History of prostate cancer s/p prostatectomy and urethral stricture. Per review of records, patient previously used to self cath. Bladder scan showed > 1L in the ED Hold donepezil Voiding trial after improvement in the mentation. Urinalysis does not show any signs of infection. DVT prophylaxis Heparin DNR/DNI DispositionPT OT ordered; Admission and Anticipated Discharge Date Admission Date: May 30, 2022 Subjective Patient seen and examined at bedside in morning and in afternoon. Is lethargic today; was alert awake able by voice in the morning. However, patient was responsive to verbal stimuli later in the day. He was oriented to self. He denies any pain. Review of Systems Review of Systems: All systems reviewed & are unremarkable except as noted in Subjective Physical Exam Physical Exam: Constitutional: Lethargic; awake able via voice; not in any distress. Respiratory: normal respiratory effort, lungs clear to auscultation, no wheeze, rales, rhonchi. Normal insp/exp effort, no accessory muscle use Cardiovascular: RRR, no murmur, no edema Vessels: no JVD or carotid bruit Chest: normal inspection of chest Abdomen: normal bowel sounds, soft, nontender, no hepatosplenomegaly Musculoskeletal: no cyanosis or clubbing, extremities motor strength 5/5 Skin: no rashes, warm and dry normal turgor Neurologic: Moves all extremities. Psychiatric: A+Ox1, lethargic Lymphatic: no cervical or axillary lymphadenopathy : deferred Results & Data Results & Data ([facility]) Vital Signs (Past 12 Hours) Vital Signs Temp Pulse Resp BP Pulse Ox O2 Del Method O2 Flow Rate 06/01/22 07:20 Nasal Cannula 2 06/01/22 08:30 36.9 C 58 L 18 148/57 H 95 Nasal Cannula 2 06/01/22 02:50 Nasal Cannula 2 06/01/22 06:00 94 Nasal Cannula 2 06/01/22 02:49 37.6 C H 78 14 157/71 H 92 Room Air Laboratory Results Laboratory Results WBC 9.93 K/ul (4.8-10.8) 06/01/22 05:38 RBC 4.42 M/uL (4.63-6.08) L 06/01/22 05:38 Hgb 14.4 g/dl (14.0-18.0) 06/01/22 05:38 Hct 41.7 % (40.1-51.0) 06/01/22 05:38 MCV 94.3 fL (80.0-100.0) 06/01/22 05:38 MCH 32.6 pg (25.0-34.0) 06/01/22 05:38 MCHC 34.5 g/dL (32.0-36.0) 06/01/22 05:38 RDW Std Deviation 45.6 fL (36.4-46.3) 06/01/22 05:38 RDW Coeff of Oracio 13.0 % (11.5-14.5) 06/01/22 05:38 Plt Count 167 K/uL (130-400) 06/01/22 05:38 MPV 10.7 fL (9.4-12.4) 06/01/22 05:38 Immature Gran % (Auto) 0.4 % 06/01/22 05:38 Neut % (Auto) 87.2 % 06/01/22 05:38 Lymph % (Auto) 4.1 % 06/01/22 05:38 [place] % (Auto) 8.0 % 06/01/22 05:38 Eos % (Auto) 0.1 % 06/01/22 05:38 Baso % (Auto) 0.2 % 06/01/22 05:38 Neut # (Auto) 8.66 K/uL (1.4-6.5) H 06/01/22 05:38 Lymph # (Auto) 0.41 K/uL (1.2-3.4) L 06/01/22 05:38 [place] # (Auto) 0.79 K/uL (0.24-0.82) 06/01/22 05:38 Eos # (Auto) 0.01 K/uL (0-0.50) 06/01/22 05:38 Baso # (Auto) 0.02 K/uL (0-0.2) 06/01/22 05:38 Immature Gran # (Auto) 0.04 K/uL (0.00-0.02) H 06/01/22 05:38 PT 10.9 Seconds (9.0-12.0) 05/30/22 13:15 INR 1.0 (0.9-1.1) 05/30/22 13:15 APTT 28.8 Seconds (21.0-31.0) 05/30/22 13:15 PTT Ratio 1.0 05/30/22 13:15 Sodium 142 mmol/L (136-145) 06/01/22 05:38 Potassium 4.1 mmol/L (3.5-5.1) 06/01/22 05:38 Chloride 109 mmol/L (98-107) H 06/01/22 05:38 Carbon Dioxide 27 mmol/L (21-32) 06/01/22 05:38 Anion Gap 6 (3-11) 06/01/22 05:38 BUN 16 mg/dl (6-23) 06/01/22 05:38 Creatinine 0.77 mg/dl (0.6-1.4) 06/01/22 05:38 Est Cr Clr Drug Dosing 49.7 ml/min 06/01/22 05:38 Est GFR ( Amer) 93.2 ml/min 06/01/22 05:38 Est GFR (Non-Af Amer) 80.5 ml/min 06/01/22 05:38 BUN/Creatinine Ratio 20.8 (10-20) H 06/01/22 05:38 Glucose 120 mg/dl (70-99(Fasting)) H 06/01/22 05:38 Calcium 8.9 mg/dl (8.5-10.1) 06/01/22 05:38 Magnesium 2.2 mg/dl (1.7-2.4) 05/30/22 13:15 Total Bilirubin 0.6 mg/dl (0.2-1.0) 05/30/22 13:15 AST 22 U/L (13-39) 05/30/22 13:15 ALT 20 U/L (7-52) 05/30/22 13:15 Alkaline Phosphatase 86 U/L (34-104) 05/30/22 13:15 Total Creatine Kinase 203 U/L (30-223) 05/30/22 13:15 Troponin I High Sens 21.2 pg/ml (0-20) H 05/30/22 13:15 Total Protein 7.1 gm/dl (6.0-8.3) 05/30/22 13:15 Albumin 4.3 gm/dl (3.4-5.0) 05/30/22 13:15 Globulin 2.8 gm/dl (2.5-4.0) 05/30/22 13:15 Albumin/Globulin Ratio 1.5 (0.9-2) 05/30/22 13:15 Vitamin B12 758 pg/ml (180-914) 05/30/22 13:15 TSH 2.301 uIu/ml (0.300-4.500) 05/30/22 13:15 Urine Color Yellow 05/30/22 Unknown Urine Appearance Clear (Clear) 05/30/22 Unknown Urine pH 5.5 (4.5-7.5) 05/30/22 Unknown Ur Specific [place] 1.019 (1.000-1.030) 05/30/22 Unknown Urine Protein Negative (Negative) 05/30/22 Unknown Urine Glucose (UA) Negative (Negative) 05/30/22 Unknown Urine Ketones Trace (Negative) H 05/30/22 Unknown Urine Blood Negative (Negative) 05/30/22 Unknown Urine Nitrite Negative (Negative) 05/30/22 Unknown Urine Bilirubin Negative (Negative) 05/30/22 Unknown Urine Urobilinogen Negative (Negative) 05/30/22 Unknown Ur Leukocyte Esterase Negative (Negative) 05/30/22 Unknown Ethyl Alcohol mg/dL < 10.0 mg/dl (<10.0) 05/30/22 13:15 SARS-CoV-2, RNA, NAAT NEGATIVE (NEGATIVE) 05/30/22 14:06 Impressions Abdomen/Pelvis CT 05/30/22 12:53 CT SCAN OF THE ABDOMEN AND PELVIS WITHOUT IV CONTRAST CLINICAL HISTORY: Change in mental status. COMPARISON STUDY: Abdominal radiographs dated 07/11/2020. Chest CT dated 12/22/2014. TECHNIQUE: CT scan of the abdomen and pelvis is performed from the lung bases to the proximal femora. Images are reviewed in the axial, sagittal, and coronal planes. IV contrast was not administered for this examination as per the referring clinician. Note that the examination was performed in significantly suboptimal fashion without IV contrast. The examination is significantly degraded by motion artifact, as well as by streak artifact from the arms which could not be elevated above the abdomen. A dose lowering technique was utilized adhering to the principles of ALARA. CT DOSE: 2290.48 mGy.cm FINDINGS: Lung bases: There is mild aneurysmal dilatation of the ascending thoracic aorta. This measures up to 4.0 cm in diameter. The heart is enlarged and without pericardial effusion. The coronary arteries are densely calcified. The main pulmonary arteries are significantly dilated suggesting pulmonary artery hyp ertension. Evaluation of the lung bases is significantly degraded by motion artifact. Emphysematous change is suspected. There is an 8 mm right upper lobe pulmonary nodule in the minor fissure seen on image #55. This is unchanged from [address] and of doubtful significance. Scarring/atelectasis is present at both lung bases. No airspace consolidation or pleural effusion is identified. Liver: Evaluation of the liver is degraded by streak artifact. The unenhanced liver is normal in size, contour, and attenuation. There is no intrahepatic biliary ductal dilatation. Gallbladder: Surgically absent noting clips in the gallbladder fossa. Spleen: Normal in size and attenuation. Pancreas: The unenhanced pancreas is grossly unremarkable. Adrenal glands: Unremarkable. Kidneys: The unenhanced kidneys demonstrate cortical atrophy and are without hydronephrosis. No renal calculi are clearly identified. Bilateral renal cysts measure up to 3.5 cm. Abdominal vasculature: There is advanced atherosclerotic calcification and ectasia of the abdominal aorta. There is calcified intraluminal thrombus versus a chronic dissection of the mid abdominal aorta seen on image #216. Bowel: There is mild colonic diverticulosis without CT evidence of acute diverticulitis. No bowel obstruction is seen. There is moderate constipation. The appendix is normal as visualized. Peritoneum: There is no intraperitoneal free air or abdominal ascites. Lymphadenopathy: None. Pelvic viscera: The prostate gland is surgically absent. The bladder is significantly distended but otherwise grossly unremarkable. Surgical clips are seen throughout the pelvis. Skeletal structures: The skeletal structures are osteopenic. No lytic or blastic lesions are seen. There is advanced lumbosacral spondylosis. Bilateral pars defects are seen at L4 with grade 1 anterolisthesis at L4-L5. There is an age- indeterminate but chronic-appearing superior end plate compression deformity of L1. IMPRESSION: 1. Significantly suboptimal examination without IV contrast. There is also severe streak and motion artifact. 2. No acute infectious or inflammatory findings are identified in the abdomen or pelvis. 3. Cardiomegaly and emphysema. 4. Moderate constipation. 5. Bladder distention. 6. Mild aneurysmal dilatation of the ascending thoracic aorta which measures up to 4.0 cm. 7. Additional chronic findings as above. ACT 112: Negative or not required by law. Electronically signed by: Se Lester M.D. 05/30/2022 3:[address] 05/30/22 12:[address] DOSE: HISTORY: Altered mental status. TECHNIQUE: Multiaxial CT images of the head were performed without the use of intravenous contrast. Automated exposure control was utilized for this study. A dose lowering technique was utilized adhering to the principles of ALARA. Comparison: Brain MRI 08/20/2010. Findings: Significant motion artifact. The paranasal sinuses and mastoid air cells are clear. The calvarium and skull base are intact. There is no mass, hematoma, midline shift, acute infarct. White matter hypodensity is nonspecific but suggestive of microvascular ischemic change. The ventricles and sulci demonstrate mild age-related involutional changes. Impression: Significant motion artifact. No definite acute intracranial abnormality. ACT 112: Negative or not required by law. Electronically signed by: Nilesh Meadows M.D. 05/30/2022 3:30 PM Chest X-Ray 06/01/22 03:00 XR chest 1V portable HISTORY: Possible aspiration. Assess for pneumonia. COMPARISON: Chest 05/30/2022. FINDINGS: No pneumothorax. No pleural effusions. A few bibasilar linear densities consistent with subsegmental atelectasis. Otherwise, no new focal lung consolidations to suggest a pneumonia. No evidence for pulmonary edema. Chronic elevation the right hemidiaphragm again noted. The heart remains top normal in size. There are old, healed bilateral rib fractures. No evidence for pulmonary edema. IMPRESSION: 1. A few bibasilar linear densities consistent with subsegmental atelectasis. This is similar to the prior studies. 2. Chronic elevation of the right hemidiaphragm. ACT 112: Negative or not required by law. Electronically signed by: Nilesh Meadows M.D. 06/01/2022 8:32 AM
[2022-06-01] MEDS: HEPARIN SOD 5,000 UNIT/0.5 ML VIAL SQ SCH (20:12)
[2022-06-01] MEDS: QUEtiapine FUMARATE 25 MG TABLET PO SCH (20:12)
[2022-06-01] MEDS: MELATONIN 3 MG TAB PO SCH (20:12)
[2022-06-01 21:36] LABS: Appearance Urine Clear (Clear); Bacteria Urine Automated Negative (Negative); Blood Urine 3+ (Negative); Color Urine Orange; Epithelial Cell Urine Auto >30 /lpf (0-5); Glucose Urine UA Negative (Negative); Ketones Urine Trace (Negative); Leukocyte Esterase Urine 1+ (Negative); Nitrite Urine Negative (Negative); Protein Urine 1+ (Negative); RBC Urine Automated >30 /hpf (0-4); Specific Gravity Urine 1.025 (1.000-1.030); Urobilinogen Urine Negative (Negative)
[2022-06-01 21:44] LABS: Bilirubin Urine 1+ (Negative)
[2022-06-01] MEDS: cefTRIAXone SODIUM 1,000 MG in DEXTROSE 5% AD-VAN 50 ML IV SCH (22:39)
[2022-06-02] MEDS: POLYETHYLENE (MIRALAX) 17 GM PACK PO SCH (08:42)
[2022-06-02] MEDS: HEPARIN SOD 5,000 UNIT/0.5 ML VIAL SQ SCH ×2 (08:42→20:21)
--- NOTE | 2022-06-02 14:11 | Hospitalist Progress Note ---
Date of Service June 02, 2022 Assessment & Plan (1) Agitation due to dementia: Plan: Patient sent to ED today for agitation at home. Patient lives with his twin sister. In the ED, patient continues to be extremely aggressive and attempting to hit staff, refuse care despite IM Haldol 10 mg, IV lorazepam 1 mg, IV midazolam 1 mg. Found to have significant urinary retention which may be contributing to patient's agitation. Plan; Appreciate psychiatry's recommendations; will currently on Seroquel to 50 mg Also, added melatonin 3 mg at bedtime Continue on Zyprexa as needed IM 5 mg every 8 hours. -Currently cooperative; one-to-one discontinued. (2) Urinary retention: (3) UTI (urinary tract infection): (4) Urethral stricture: Plan: History of prostate cancer s/p prostatectomy and urethral stricture. Per review of records, patient previously used to self cath. Bladder scan showed > 1L in the ED Was placed on urinary catheter. Spiked fever on the night of 06/01; urinalysis suggestive of infection. Started on ceftriaxone. Urine culture and blood culture pending. DVT prophylaxis Heparin DNR/DNI DispositionPT OT ordered; recommend [facility]; case management on board. Admission and Anticipated Discharge Date Admission Date: May 30, 2022 Subjective Patient seen and examined at bedside. He is sitting up on the bed eating breakfast. He is oriented to self and place. No period of agitation overnight; Review of Systems Review of Systems: All systems reviewed & are unremarkable except as noted in Subjective Physical Exam Physical Exam: Constitutional: Awake, alert oriented to self. Not agitated. Respiratory: normal respiratory effort, lungs clear to auscultation, no wheeze, rales, rhonchi. Normal insp/exp effort, no accessory muscle use Cardiovascular: RRR, no murmur, no edema Vessels: no JVD or carotid bruit Chest: normal inspection of chest Abdomen: normal bowel sounds, soft, nontender, no hepatosplenomegaly Musculoskeletal: no cyanosis or clubbing, extremities motor strength 5/5 Skin: no rashes, warm and dry normal turgor Neurologic: Moves all extremities. Psychiatric: A+Ox1, awake, alert oriented to self. Lymphatic: no cervical or axillary lymphadenopathy : deferred Results & Data Results & Data ([facility]) Vital Signs (Past 12 Hours) Vital Signs Temp Pulse Resp BP Pulse Ox O2 Del Method O2 Flow Rate 01/09/23 06:55 Nasal Cannula 2 06/02/22 06:57 36.7 C 68 16 117/70 94 Nasal Cannula 2 06/02/22 05:11 37.3 C Laboratory Results Laboratory Results WBC 9.93 K/ul (4.8-10.8) 06/01/22 05:38 RBC 4.42 M/uL (4.63-6.08) L 06/01/22 05:38 Hgb 14.4 g/dl (14.0-18.0) 06/01/22 05:38 Hct 41.7 % (40.1-51.0) 06/01/22 05:38 MCV 94.3 fL (80.0-100.0) 06/01/22 05:38 MCH 32.6 pg (25.0-34.0) 06/01/22 05:38 MCHC 34.5 g/dL (32.0-36.0) 06/01/22 05:38 RDW Std Deviation 45.6 fL (36.4-46.3) 06/01/22 05:38 RDW Coeff of [place] 13.0 % (11.5-14.5) 06/01/22 05:38 Plt Count 167 K/uL (130-400) 06/01/22 05:38 MPV 10.7 fL (9.4-12.4) 06/01/22 05:38 Immature Gran % (Auto) 0.4 % 06/01/22 05:38 Neut % (Auto) 87.2 % 06/01/22 05:38 Lymph % (Auto) 4.1 % 06/01/22 05:38 [place] % (Auto) 8.0 % 06/01/22 05:38 Eos % (Auto) 0.1 % 06/01/22 05:38 Baso % (Auto) 0.2 % 06/01/22 05:38 Neut # (Auto) 8.66 K/uL (1.4-6.5) H 06/01/22 05:38 Lymph # (Auto) 0.41 K/uL (1.2-3.4) L 06/01/22 05:38 [place] # (Auto) 0.79 K/uL (0.24-0.82) 06/01/22 05:38 Eos # (Auto) 0.01 K/uL (0-0.50) 06/01/22 05:38 Baso # (Auto) 0.02 K/uL (0-0.2) 06/01/22 05:38 Immature Gran # (Auto) 0.04 K/uL (0.00-0.02) H 06/01/22 05:38 PT 10.9 Seconds (9.0-12.0) 05/30/22 13:15 INR 1.0 (0.9-1.1) 05/30/22 13:15 APTT 28.8 Seconds (21.0-31.0) 05/30/22 13:15 PTT Ratio 1.0 05/30/22 13:15 Sodium 142 mmol/L (136-145) 06/01/22 05:38 Potassium 4.1 mmol/L (3.5-5.1) 06/01/22 05:38 Chloride 109 mmol/L (98-107) H 06/01/22 05:38 Carbon Dioxide 27 mmol/L (21-32) 06/01/22 05:38 Anion Gap 6 (3-11) 06/01/22 05:38 BUN 16 mg/dl (6-23) 06/01/22 05:38 Creatinine 0.77 mg/dl (0.6-1.4) 06/01/22 05:38 Est Cr Clr Drug Dosing 49.7 ml/min 06/01/22 05:38 Est GFR ( Amer) 93.2 ml/min 06/01/22 05:38 Est GFR (Non-Af Amer) 80.5 ml/min 06/01/22 05:38 BUN/Creatinine Ratio 20.8 (10-20) H 06/01/22 05:38 Glucose 120 mg/dl (70-99(Fasting)) H 06/01/22 05:38 Calcium 8.9 mg/dl (8.5-10.1) 06/01/22 05:38 Magnesium 2.2 mg/dl (1.7-2.4) 05/30/22 13:15 Total Bilirubin 0.6 mg/dl (0.2-1.0) 05/30/22 13:15 AST 22 U/L (13-39) 05/30/22 13:15 ALT 20 U/L (7-52) 05/30/22 13:15 Alkaline Phosphatase 86 U/L (34-104) 05/30/22 13:15 Total Creatine Kinase 203 U/L (30-223) 05/30/22 13:15 Troponin I High Sens 21.2 pg/ml (0-20) H 05/30/22 13:15 Total Protein 7.1 gm/dl (6.0-8.3) 05/30/22 13:15 Albumin 4.3 gm/dl (3.4-5.0) 05/30/22 13:15 Globulin 2.8 gm/dl (2.5-4.0) 05/30/22 13:15 Albumin/Globulin Ratio 1.5 (0.9-2) 05/30/22 13:15 Vitamin B12 758 pg/ml (180-914) 05/30/22 13:15 TSH 2.301 uIu/ml (0.300-4.500) 05/30/22 13:15 Urine Color [place] 06/01/22 21:05 Urine Appearance Clear (Clear) 06/01/22 21:05 Urine pH 5.0 (4.5-7.5) 06/01/22 21:05 Ur Specific [place] 1.025 (1.000-1.030) 06/01/22 21:05 Urine Protein 1+ (Negative) H 06/01/22 21:05 Urine Glucose (UA) Negative (Negative) 06/01/22 21:05 Urine Ketones Trace (Negative) H 06/01/22 21:05 Urine Blood 3+ (Negative) H 06/01/22 21:05 Urine Nitrite Negative (Negative) 06/01/22 21:05 Urine Bilirubin 1+ (Negative) H 06/01/22 21:05 Urine Urobilinogen Negative (Negative) 06/01/22 21:05 Ur Leukocyte Esterase 1+ (Negative) H 06/01/22 21:05 Urine WBC (Auto) 10-30 /hpf (0-5) H 06/01/22 21:05 Urine RBC (Auto) >30 /hpf (0-4) H 06/01/22 21:05 U Hyaline Cast (Auto) 5-10 /lpf (0-5) H 06/01/22 21:05 U Epithel Cells (Auto) >30 /lpf (0-5) H 06/01/22 21:05 Urine Bacteria (Auto) Negative (Negative) 06/01/22 21:05 Ur Renal Epithelial Cell Not Reportable 06/01/22 21:05 Ethyl Alcohol mg/dL < 10.0 mg/dl (<10.0) 05/30/22 13:15 SARS-CoV-2, RNA, NAAT NEGATIVE (NEGATIVE) 05/30/22 14:06 Impressions Abdomen/Pelvis CT 05/30/22 12:53 CT SCAN OF THE ABDOMEN AND PELVIS WITHOUT IV CONTRAST CLINICAL HISTORY: Change in mental status. COMPARISON STUDY: Abdominal radiographs dated 07/11/2020. Chest CT dated 12/22/2014. TECHNIQUE: CT scan of the abdomen and pelvis is performed from the lung bases to the proximal femora. Images are reviewed in the axial, sagittal, and coronal planes. IV contrast was not administered for this examination as per the referring clinician. Note that the examination was performed in significantly suboptimal fashion without IV contrast. The examination is significantly degraded by motion artifact, as well as by streak artifact from the arms which could not be elevated above the abdomen. A dose lowering technique was utilized adhering to the principles of ALARA. CT DOSE: 2290.48 mGy.cm FINDINGS: Lung bases: There is mild aneurysmal dilatation of the ascending thoracic aorta. This measures up to 4.0 cm in diameter. The heart is enlarged and without pericardial effusion. The coronary arteries are densely calcified. The main pulmonary arteries are significantly dilated suggesting pulmonary artery hypertension. Evaluation of the lung bases is significantly degraded by motion artifact. Emphysematous change is suspected. There is an 8 mm right upper lobe pulmonary nodule in the minor fissure seen on image #55. This is unchanged from [address] and of doubtful significance. Scarring/atelectasis is present at both lung bases. No airspace consolidation or pleural effusion is identified. Liver: Evaluation of the liver is degraded by streak artifact. The unenhanced liver is normal in size, contour, and attenuation. There is no intrahepatic biliary ductal dilatation. Gallbladder: Surgically absent noting clips in the gallbladder fossa. Spleen: Normal in size and attenuation. Pancreas: The unenhanced pancreas is grossly unremarkable. Adrenal glands: Unremarkable. Kidneys: The unenhanced kidneys demonstrate cortical atrophy and are without hydronephrosis. No renal calculi are clearly identified. Bilateral renal cysts measure up to 3.5 cm. Abdominal vasculature: There is advanced atherosclerotic calcification and ectasia of the abdominal aorta. There is calcified intraluminal thrombus versus a chronic dissection of the mid abdominal aorta seen on image #216. Bowel: There is mild colonic diverticulosis without CT evidence of acute diverticulitis. No bowel obstruction is seen. There is moderate constipation. The appendix is normal as visualized. Peritoneum: There is no intraperitoneal free air or abdominal ascites. Lymphadenopathy: None. Pelvic viscera: The prostate gland is surgically absent. The bladder is significantly distended but otherwise grossly unremarkable. Surgical clips are seen throughout the pelvis. Skeletal structures: The skeletal structures are osteopenic. No lytic or blastic lesions are seen. There is advanced lumbosacral spondylosis. Bilateral pars defects are seen at L4 with grade 1 anterolisthesis at L4-L5. There is an age- indeterminate but chronic-appearing superior end plate compression deformity of L1. IMPRESSION: 1. Significantly suboptimal examination without IV contrast. There is also severe streak and motion artifact. 2. No acute infectious or inflammatory findings are identified in the abdomen or pelvis. 3. Cardiomegaly and emphysema. 4. Moderate constipation. 5. Bladder distention. 6. Mild aneurysmal dilatation of the ascending thoracic aorta which measures up to 4.0 cm. 7. Additional chronic findings as above. ACT 112: Negative or not required by law. Electronically signed by: Se Lester M.D. 05/30/2022 3:[address] 05/30/22 12:[address] DOSE: HISTORY: Altered mental status. TECHNIQUE: Multiaxial CT images of the head were performed without the use of intravenous contrast. Automated exposure control was utilized for this study. A dose lowering technique was utilized adhering to the principles of ALARA. Comparison: Brain MRI 08/20/2010. Findings: Significant motion artifact. The paranasal sinuses and mastoid air cells are clear. The calvarium and skull base are intact. There is no mass, hematoma, midline shift, acute infarct. White matter hypodensity is nonspecific but suggestive of microvascular ischemic change. The ventricles and sulci demonstrate mild age-related involutional changes. Impression: Significant motion artifact. No definite acute intracranial abnormality. ACT 112: Negative or not required by law. Electronically signed by: Nilesh Meadows M.D. 05/30/2022 3:30 PM Chest X-Ray 06/01/22 03:00 XR chest 1V portable HISTORY: Possible aspiration. Assess for pneumonia. COMPARISON: Chest 05/30/2022. FINDINGS: No pneumothorax. No pleural effusions. A few bibasilar linear densities consistent with subsegmental atelectasis. Otherwise, no new focal lung consolidations to suggest a pneumonia. No evidence for pulmonary edema. Chronic elevation the right hemidiaphragm again noted. The heart remains top normal in size. There are old, healed bilateral rib fractures. No evidence for pulmonary edema. IMPRESSION: 1. A few bibasilar linear densities consistent with subsegmental atelectasis. This is similar to the prior studies. 2. Chronic elevation of the right hemidiaphragm. ACT 112: Negative or not required by law. Electronically signed by: Nilesh Meadows M.D. 06/01/2022 8:32 AM
[2022-06-02] MEDS: QUEtiapine FUMARATE 25 MG TABLET PO SCH (20:21)
[2022-06-02] MEDS: MELATONIN 3 MG TAB PO SCH (20:21)
[2022-06-02] MEDS: cefTRIAXone SODIUM 1,000 MG in DEXTROSE 5% AD-VAN 50 ML IV SCH (23:12)
[2022-06-03 07:42] LABS: Basophils # (auto) 0.02 K/uL (0-0.2); Basophils % (auto) 0.3 %; Eosinophils # (auto) 0.16 K/uL (0-0.50); Eosinophils % (auto) 2.4 %; Hemoglobin 13.7 g/dl (14.0-18.0); Immature Granulocytes # (auto) 0.03 K/uL (0.00-0.02); Immature Granulocytes % (auto) 0.4 %; Lymphocytes # (auto) 0.56 K/uL (1.2-3.4); Lymphocytes % (auto) 8.3 %; Mean Corpuscular Hgb Conc 33.4 g/dL (32.0-36.0); Mean Corpuscular Volume 95.8 fL (80.0-100.0); Mean Platelet Volume 10.6 fL (9.4-12.4); Monocytes # (auto) 0.64 K/uL (0.24-0.82); Monocytes % (auto) 9.5 %; Neutrophils # (auto) 5.32 K/uL (1.4-6.5); Neutrophils % (auto) 79.1 %; Platelet Count 169 K/uL (130-400); RDW Coefficient of Variation 13.1 % (11.5-14.5); RDW Standard Deviation 46.6 fL (36.4-46.3); Red Blood Count 4.28 M/uL (4.63-6.08); White Blood Count 6.73 K/ul (4.8-10.8)
[2022-06-03 08:04] LABS: BUN Creatinine Ratio 35.9 (10-20); Calcium 8.9 mg/dl (8.5-10.1); Est GFR (African American) 92.8 ml/min; Potassium 4.2 mmol/L (3.5-5.1)
[2022-06-03] MEDS: HEPARIN SOD 5,000 UNIT/0.5 ML VIAL SQ SCH ×2 (08:47→20:03)
[2022-06-03] MEDS: POLYETHYLENE (MIRALAX) 17 GM PACK PO SCH (08:47)
--- NOTE | 2022-06-03 13:58 | Hospitalist Progress Note ---
Date of Service June 03, 2022 Assessment & Plan (1) Agitation due to dementia: Plan: Patient sent to ED today for agitation at home. Patient lives with his twin sister. In the ED, patient continues to be extremely aggressive and attempting to hit staff, refuse care despite IM Haldol 10 mg, IV lorazepam 1 mg, IV midazolam 1 mg. Found to have significant urinary retention which may be contributing to patient's agitation. Plan; Appreciate psychiatry's recommendations; will currently on Seroquel to 50 mg Also, added melatonin 3 mg at bedtime Continue on Zyprexa as needed IM 5 mg every 8 hours. Has not required Zyprexa since 05/31/2022 - Currently cooperative; one-to-one discontinued on 06/01 -PT OT evaluation done; Discussion was done with his twin sister Jayda whom he was living with; reports that she is not able to take care of him. Request for placement to subacute rehab; likely dementia unit. (2) Urinary retention: (3) UTI (urinary tract infection): (4) Urethral stricture: Plan: History of prostate cancer s/p prostatectomy and urethral stricture. Per review of records, patient previously used to self cath. Bladder scan showed > 1L in the ED Was placed on urinary catheter. Spiked fever on the night of 06/01; urinalysis suggestive of infection. Started on ceftriaxone. Urine culture and blood culture not suggestive of infection. Antibiotic discontinued. Will do trial of void today; bladder scan every 8 hours. DVT prophylaxis Heparin DNR/DNI DispositionPT OT ordered; recommend [facility]; case management on board. Admission and Anticipated Discharge Date Admission Date: May 30, 2022 Subjective Patient seen and examined at bedside. He is sitting up on the bed; not in any distress. Is alert, oriented to self and place. No episode of agitation; has not required IM Zyprexa Review of Systems Review of Systems: All systems reviewed & are unremarkable except as noted in Subjective Physical Exam Physical Exam: Constitutional: Awake, alert oriented to self. Not agitated. Respiratory: normal respiratory effort, lungs clear to auscultation, no wheeze, rales, rhonchi. Normal insp/exp effort, no accessory muscle use Cardiovascular: RRR, no murmur, no edema Vessels: no JVD or carotid bruit Chest: normal inspection of chest Abdomen: normal bowel sounds, soft, nontender, no hepatosplenomegaly Musculoskeletal: no cyanosis or clubbing, extremities motor strength 5/5 Skin: no rashes, warm and dry normal turgor Neurologic: Moves all extremities. Psychiatric: A+Ox1, awake, alert oriented to self. Lymphatic: no cervical or axillary lymphadenopathy : deferred Results & Data Results & Data ([facility]) Vital Signs (Past 12 Hours) Vital Signs Temp Pulse Resp BP Pulse Ox O2 Del Method O2 Flow Rate 06/03/22 07:25 Nasal Cannula 1 06/03/22 07:13 37.1 C 52 L 16 154/80 H 93 Nasal Cannula 1 Laboratory Results Laboratory Results WBC 6.73 K/ul (4.8-10.8) 06/03/22 07: RBC 4.28 M/uL (4.63-6.08) L 06/03/22 07: Hgb 13.7 g/dl (14.0-18.0) L 06/03/22 07: Hct 41.0 % (40.1-51.0) 06/03/22: MCV 95.8 fL (80.0-100.0) 06/03/22 07: MCH 32.0 pg (25.0-34.0) 06/03/22: MCHC 33.4 g/dL (32.0-36.0) 06/03/22 07: RDW Std Deviation 46.6 fL (36.4-46.3) H 06/03/22 07: RDW Coeff of [place]acio 13.1 % (11.5-14.5) 06/03/22: Plt Count 169 K/uL (130-400) 06/03/22: MPV 10.6 fL (9.4-12.4) 06/03/22 07: Immature Gran % (Auto) 0.4 % 06/03/22: Neut % (Auto) 79.1 % 06/03/22: Lymph % (Auto) 8.3 % 06/03/22: [place] % (Auto) 9.5 % 06/03/22: Eos % (Auto) 2.4 % 06/03/22: Baso % (Auto) 0.3 % 06/03/22:23 Neut # (Auto) 5.32 K/uL (1.4-6.5) 06/03/22 07:23 Lymph # (Auto) 0.56 K/uL (1.2-3.4) L 06/03/22 07:23 [place] # (Auto) 0.64 K/uL (0.24-0.82) 06/03/22 07:23 Eos # (Auto) 0.16 K/uL (0-0.50) 06/03/22 07:23 Baso # (Auto) 0.02 K/uL (0-0.2) 06/03/22 07: Immature Gran # (Auto) 0.03 K/uL (0.00-0.02) H 06/03/22 07:23 PT 10.9 Seconds (9.0-12.0) 05/30/22 13:15 INR 1.0 (0.9-1.1) 05/30/22 13:15 APTT 28.8 Seconds (21.0-31.0) 05/30/22 13:15 PTT Ratio 1.0 05/30/22 13:15 Sodium 141 mmol/L (136-145) 06/03/22 07:23 Potassium 4.2 mmol/L (3.5-5.1) 06/03/22 07:23 Chloride 107 mmol/L (98-107) 06/03/22 07: Carbon Dioxide 30 mmol/L (21-32) 06/03/22 07:23 Anion Gap 4 (3-11) 06/03/22 07:23 BUN 28 mg/dl (6-23) H 06/03/22 07: Creatinine 0.78 mg/dl (0.6-1.4) 06/03/22 07: Est Cr Clr Drug Dosing 49.0 ml/min 06/03/22 07:23 Est GFR ( Amer) 92.8 ml/min 06/03/22 07: Est GFR (Non-Af Amer) 80.0 ml/min 06/03/22 07:23 BUN/Creatinine Ratio 35.9 (10-20) H 06/03/22 07:23 Glucose 115 mg/dl (70-99(Fasting)) H 06/03/22 07:23 Calcium 8.9 mg/dl (8.5-10.1) 06/03/22 07: Magnesium 2.2 mg/dl (1.7-2.4) 05/30/22 13:15 Total Bilirubin 0.6 mg/dl (0.2-1.0) 05/30/22 13:15 AST 22 U/L (13-39) 05/30/22 13:15 ALT 20 U/L (7-52) 05/30/22 13:15 Alkaline Phosphatase 86 U/L (34-104) 05/30/22 13:15 Total Creatine Kinase 203 U/L (30-223) 05/30/22 13:15 Troponin I High Sens 21.2 pg/ml (0-20) H 05/30/22 13:15 Total Protein 7.1 gm/dl (6.0-8.3) 05/30/22 13:15 Albumin 4.3 gm/dl (3.4-5.0) 05/30/22 13:15 Globulin 2.8 gm/dl (2.5-4.0) 05/30/22 13:15 Albumin/Globulin Ratio 1.5 (0.9-2) 05/30/22 13:15 Vitamin B12 758 pg/ml (180-914) 05/30/22 13:15 TSH 2.301 uIu/ml (0.300-4.500) 05/30/22 13:15 Urine Color [place] 06/01/22 21:05 Urine Appearance Clear (Clear) 06/01/22 21:05 Urine pH 5.0 (4.5-7.5) 06/01/22 21:05 Ur Specific [place] 1.025 (1.000-1.030) 06/01/22 21:05 Urine Protein 1+ (Negative) H 06/01/22 21:05 Urine Glucose (UA) Negative (Negative) 06/01/22 21:05 Urine Ketones Trace (Negative) H 06/01/22 21:05 Urine Blood 3+ (Negative) H 06/01/22 21:05 Urine Nitrite Negative (Negative) 06/01/22 21:05 Urine Bilirubin 1+ (Negative) H 06/01/22 21:05 Urine Urobilinogen Negative (Negative) 06/01/22 21:05 Ur Leukocyte Esterase 1+ (Negative) H 06/01/22 21:05 Urine WBC (Auto) 10-30 /hpf (0-5) H 06/01/22 21:05 Urine RBC (Auto) >30 /hpf (0-4) H 06/01/22 21:05 U Hyaline Cast (Auto) 5-10 /lpf (0-5) H 06/01/22 21:05 U Epithel Cells (Auto) >30 /lpf (0-5) H 06/01/22 21:05 Urine Bacteria (Auto) Negative (Negative) 06/01/22 21:05 Ur Renal Epithelial Cell Not Reportable 06/01/22 21:05 Ethyl Alcohol mg/dL < 10.0 mg/dl (<10.0) 05/30/22 13:15 SARS-CoV-2, RNA, NAAT NEGATIVE (NEGATIVE) 05/30/22 14:06 Impressions Abdomen/Pelvis CT 05/30/22 12:53 CT SCAN OF THE ABDOMEN AND PELVIS WITHOUT IV CONTRAST CLINICAL HISTORY: Change in mental status. COMPARISON STUDY: Abdominal radiographs dated 07/11/2020. Chest CT dated 12/22/2014. TECHNIQUE: CT scan of the abdomen and pelvis is performed from the lung bases to the proximal femora. Images are reviewed in the axial, sagittal, and coronal planes. IV contrast was not administered for this examination as per the referring clinician. Note that the examination was performed in significantly suboptimal fashion without IV contrast. The examination is significantly degraded by motion artifact, as well as by streak artifact from the arms which could not be elevated above the abdomen. A dose lowering technique was utilized adhering to the principles of ALARA. CT DOSE: 2290.48 mGy.cm FINDINGS: Lung bases: There is mild aneurysmal dilatation of the ascending thoracic aorta. This measures up to 4.0 cm in diameter. The heart is enlarged and without pericardial effusion. The coronary arteries are densely calcified. The main pulmonary arteries are significantly dilated suggesting pulmonary artery hypertension. Evaluation of the lung bases is significantly degraded by motion artifact. Emphysematous change is suspected. There is an 8 mm right upper lobe pulmonary nodule in the minor fissure seen on image #55. This is unchanged from [address] and of doubtful significance. Scarring/atelectasis is present at both lung bases. No airspace consolidation or pleural effusion is identified. Liver: Evaluation of the liver is degraded by streak artifact. The unenhanced liver is normal in size, contour, and attenuation. There is no intrahepatic biliary ductal dilatation. Gallbladder: Surgically absent noting clips in the gallbladder fossa. Spleen: Normal in size and attenuation. Pancreas: The unenhanced pancreas is grossly unremarkable. Adrenal glands: Unremarkable. Kidneys: The unenhanced kidneys demonstrate cortical atrophy and are without hydronephrosis. No renal calculi are clearly identified. Bilateral renal cysts measure up to 3.5 cm. Abdominal vasculature: There is advanced atherosclerotic calcification and ectasia of the abdominal aorta. There is calcified intraluminal thrombus versus a chronic dissection of the mid abdominal aorta seen on image #216. Bowel: There is mild colonic diverticulosis without CT evidence of acute diverticulitis. No bowel obstruction is seen. There is moderate constipation. The appendix is normal as visualized. Peritoneum: There is no intraperitoneal free air or abdominal ascites. Lymphadenopathy: None. Pelvic viscera: The prostate gland is surgically absent. The bladder is signific antly distended but otherwise grossly unremarkable. Surgical clips are seen throughout the pelvis. Skeletal structures: The skeletal structures are osteopenic. No lytic or blastic lesions are seen. There is advanced lumbosacral spondylosis. Bilateral pars defects are seen at L4 with grade 1 anterolisthesis at L4-L5. There is an age- indeterminate but chronic-appearing superior end plate compression deformity of L1. IMPRESSION: 1. Significantly suboptimal examination without IV contrast. There is also severe streak and motion artifact. 2. No acute infectious or inflammatory findings are identified in the abdomen or pelvis. 3. Cardiomegaly and emphysema. 4. Moderate constipation. 5. Bladder distention. 6. Mild aneurysmal dilatation of the ascending thoracic aorta which measures up to 4.0 cm. 7. Additional chronic findings as above. ACT 112: Negative or not required by law. Electronically signed by: Se Lester M.D. 05/30/2022 3:[address] 05/30/22 12:[address] DOSE: HISTORY: Altered mental status. TECHNIQUE: Multiaxial CT images of the head were performed without the use of intravenous contrast. Automated exposure control was utilized for this study. A dose lowering technique was utilized adhering to the principles of ALARA. Comparison: Brain MRI 08/20/2010. Findings: Significant motion artifact. The paranasal sinuses and mastoid air cells are clear. The calvarium and skull base are intact. There is no mass, hematoma, midline shift, acute infarct. White matter hypodensity is nonspecific but suggestive of microvascular ischemic change. The ventricles and sulci demonstrate mild age-related involutional changes. Impression: Significant motion artifact. No definite acute intracranial abnormality. ACT 112: Negative or not required by law. Electronically signed by: Nilesh Meadows M.D. 05/30/2022 3:30 PM Chest X-Ray 06/01/22 03:00 XR chest 1V portable HISTORY: Possible aspiration. Assess for pneumonia. COMPARISON: Chest 05/30/2022. FINDINGS: No pneumothorax. No pleural effusions. A few bibasilar linear densities consistent with subsegmental atelectasis. Otherwise, no new focal lung consolidations to suggest a pneumonia. No evidence for pulmonary edema. Chronic elevation the right hemidiaphragm again noted. The heart remains top normal in size. There are old, healed bilateral rib fractures. No evidence for pulmonary edema. IMPRESSION: 1. A few bibasilar linear densities consistent with subsegmental atelectasis. This is similar to the prior studies. 2. Chronic elevation of the right hemidiaphragm. ACT 112: Negative or not required by law. Electronically signed by: Nilesh Meadows M.D. 06/01/2022 8:32 AM
[2022-06-03] MEDS: QUEtiapine FUMARATE 25 MG TABLET PO SCH (20:03)
[2022-06-03] MEDS: MELATONIN 3 MG TAB PO SCH (20:03)
[2022-06-04 08:06] LABS: Hematocrit (blood only) 43.8 % (40.1-51.0); Hemoglobin 14.7 g/dl (14.0-18.0); Mean Corpuscular Hemoglobin 32.1 pg (25.0-34.0); Mean Corpuscular Hgb Conc 33.6 g/dL (32.0-36.0); Mean Corpuscular Volume 95.6 fL (80.0-100.0); Platelet Count 215 K/uL (130-400); RDW Coefficient of Variation 12.9 % (11.5-14.5); RDW Standard Deviation 45.5 fL (36.4-46.3); Red Blood Count 4.58 M/uL (4.63-6.08); White Blood Count 7.89 K/ul (4.8-10.8)
[2022-06-04] MEDS: POLYETHYLENE (MIRALAX) 17 GM PACK PO SCH (08:43)
[2022-06-04] MEDS: HEPARIN SOD 5,000 UNIT/0.5 ML VIAL SQ SCH ×2 (08:44→19:49)
[2022-06-04] MEDS: TAMSULOSIN HCL 0.4 MG CAP PO SCH (13:19)
--- NOTE | 2022-06-04 14:46 | Hospitalist Progress Note ---
Date of Service June 04, 2022 Assessment & Plan (1) Agitation due to dementia: Plan: Dementia with mood disturbance ? Agitation secondary to Urinary retention Appreciate psychiatry Input Continue melatonin, quetiapine Zyprexa as needed Needs placement Delirium precautions (2) Urinary retention: (3) UTI (urinary tract infection): Plan: UTI ruled out Urine/Blood Culture negative (4) Urethral stricture: Plan: Urinary retention H/O prostate cancer s/p prostatectomy and urethral stricture Per records, patient previously used to self cath. Hernández Catheter discontinued Continue voiding trial Continue bladder scan Started on Flomax DVT Px Heparin SQ Code Status DNR/DNI Admission and Anticipated Discharge Date Admission Date: May 30, 2022 Subjective Patient is seen and examined at bedside No distress Pleasantly confused And straight cath overnight per RN Denies any chest pain, dyspnea No other complaints Review of Systems Review of Systems: Unobtainable due to cognitive status Physical Exam Physical Exam: Physical Exam: Vitals signs as noted above General Appearance:Moderately built and nourished, no apparent distress Head: normocephalic, Atraumatic Eyes: normal inspection, EOMI Neck: supple, Trachea midline Respiratory/Chest: Normal breath sounds, CTA, No accessory muscle use Cardiovascular: S1, S2, No murmur Abdomen/GI:Soft, Non tender, Bowel sounds present Extremities/Musculoskeletal:normal inspection, no edema Neurologic/Psych:AAOX1, grossly no focal neurological deficits Skin: normal color, warm Results & Data Results & Data ([facility]) Vital Signs (Past 12 Hours) Vital Signs Temp Pulse Resp BP Pulse Ox O2 Del Method 06/04/22 07:35 36.8 C 69 16 127/77 94 Room Air Laboratory Results Short CBC 06/04/22 Range/Units 07:20 WBC 7.89 (4.8-10.8) K/ul Hgb 14.7 (14.0-18.0) g/dl Hct 43.8 (40.1-51.0) % Plt Count 215 (130-400) K/uL
[2022-06-04] MEDS: OLANZapine 10 MG/2.1 ML SDV IM PRN (16:01)
[2022-06-04] MEDS: MELATONIN 3 MG TAB PO SCH (19:46)
[2022-06-04] MEDS: QUEtiapine FUMARATE 25 MG TABLET PO SCH (19:46)
[2022-06-05] MEDS: POLYETHYLENE (MIRALAX) 17 GM PACK PO SCH (08:04)
[2022-06-05] MEDS: TAMSULOSIN HCL 0.4 MG CAP PO SCH (08:05)
[2022-06-05] MEDS: HEPARIN SOD 5,000 UNIT/0.5 ML VIAL SQ SCH ×2 (08:05→20:06)
--- NOTE | 2022-06-05 16:32 | Hospitalist Progress Note ---
Date of Service June 05, 2022 Assessment & Plan (1) Agitation due to dementia: Plan: Dementia with mood disturbance ? Agitation secondary to Urinary retention Appreciate psychiatry Input Continue melatonin, quetiapine Zyprexa as needed Needs placement Delirium precautions Waiting for placement (2) Urinary retention: (3) UTI (urinary tract infection): Plan: UTI ruled out Urine/Blood Culture negative (4) Urethral stricture: Plan: Urinary retention H/O prostate cancer s/p prostatectomy and urethral stricture Per records, patient previously used to self cath. Hernández Catheter discontinued Continue voiding trial Continue bladder scan Started on Flomax DVT Px Heparin SQ Code Status DNR/DNI Admission and Anticipated Discharge Date Admission Date: May 30, 2022 Subjective Patient is seen and examined at bedside Poor historian Prefers to be discharged No distress during my encounter Denies chest pain, dyspnea, abd pain Review of Systems Review of Systems: All systems reviewed & are unremarkable except as noted in Subjective Physical Exam Physical Exam: Physical Exam: Vitals signs as noted above General Appearance:Moderately built and nourished, no apparent distress Head: normocephalic, Atraumatic Eyes: normal inspection, EOMI Neck: supple, Trachea midline Respiratory/Chest: Normal breath sounds, CTA, No accessory muscle use Cardiovascular: S1, S2, No murmur Abdomen/GI:Soft, Non tender, Bowel sounds present Extremities/Musculoskeletal:normal inspection, no edema Neurologic/Psych:AAOX1, grossly no focal neurological deficits Skin: normal color, warm Results & Data Results & Data ([facility]) Vital Signs (Past 12 Hours) Vital Signs Temp Pulse Resp BP Pulse Ox O2 Del Method 06/05/22 08:27 37.0 C 67 18 126/70 93 Room Air
[2022-06-05] MEDS: MELATONIN 3 MG TAB PO SCH (20:05)
[2022-06-05] MEDS: QUEtiapine FUMARATE 25 MG TABLET PO SCH (20:05)
[2022-06-06] MEDS: TAMSULOSIN HCL 0.4 MG CAP PO SCH (08:43)
[2022-06-06] MEDS: HEPARIN SOD 5,000 UNIT/0.5 ML VIAL SQ SCH ×2 (08:43→20:08)
[2022-06-06] MEDS: POLYETHYLENE (MIRALAX) 17 GM PACK PO SCH (08:43)
--- NOTE | 2022-06-06 18:21 | Hospitalist Progress Note ---
Date of Service June 06, 2022 Assessment & Plan (1) Agitation due to dementia: Plan: Dementia with mood disturbance ? Agitation secondary to Urinary retention Appreciate psychiatry Input Continue melatonin, quetiapine Zyprexa as needed Needs placement Delirium precautions Waiting for placement Continue current management (2) Urinary retention: (3) UTI (urinary tract infection): Plan: UTI ruled out Urine/Blood Culture negative (4) Urethral stricture: Plan: Urinary retention H/O prostate cancer s/p prostatectomy and urethral stricture Per records, patient previously used to self cath. Hernández Catheter discontinued Continue voiding trial Continue bladder scan Continue Flomax DVT Px Heparin SQ Code Status DNR/DNI Admission and Anticipated Discharge Date Admission Date: May 30, 2022 Subjective Patient is seen and examined at bedside Poor historian Denies chest pain, dyspnea, abd pain Waiting for placement Review of Systems Review of Systems: Unobtainable due to cognitive status Physical Exam Physical Exam: Physical Exam: Vitals signs as noted above General Appearance:Moderately built and nourished, no apparent distress Head: normocephalic, Atraumatic Eyes: normal inspection, EOMI Neck: supple, Trachea midline Respiratory/Chest: Normal breath sounds, CTA, No accessory muscle use Cardiovascular: S1, S2, No murmur Abdomen/GI:Soft, Non tender, Bowel sounds present Extremities/Musculoskeletal:normal inspection, no edema Neurologic/Psych:AAOX1, grossly no focal neurological deficits Skin: normal color, warm Results & Data Results & Data ([facility]) Vital Signs (Past 12 Hours) Vital Signs Temp Pulse Resp BP Pulse Ox O2 Del Method 06/06/22 15:13 36.6 C 77 18 115/61 93 Room Air 06/06/22 08:29 36.8 C 68 18 131/69 93 Room Air
[2022-06-06] MEDS: MELATONIN 3 MG TAB PO SCH (20:07)
[2022-06-06] MEDS: QUEtiapine FUMARATE 25 MG TABLET PO SCH (20:07)
[2022-06-07 07:26] LABS: Hemoglobin 13.2 g/dl (14.0-18.0); Mean Corpuscular Hemoglobin 31.9 pg (25.0-34.0); Mean Corpuscular Volume 96.6 fL (80.0-100.0); Mean Platelet Volume 10.5 fL (9.4-12.4); Platelet Count 189 K/uL (130-400); RDW Standard Deviation 46.4 fL (36.4-46.3); Red Blood Count 4.14 M/uL (4.63-6.08); White Blood Count 4.76 K/ul (4.8-10.8)
[2022-06-07] MEDS: TAMSULOSIN HCL 0.4 MG CAP PO SCH (09:17)
[2022-06-07] MEDS: POLYETHYLENE (MIRALAX) 17 GM PACK PO SCH (09:17)
[2022-06-07] MEDS: HEPARIN SOD 5,000 UNIT/0.5 ML VIAL SQ SCH ×2 (09:19→19:51)
--- NOTE | 2022-06-07 15:56 | Hospitalist Progress Note ---
Date of Service June 07, 2022 Assessment & Plan (1) Agitation due to dementia: Plan: Dementia with mood disturbance ? Agitation secondary to Urinary retention Appreciate psychiatry Input Continue melatonin, quetiapine Zyprexa as needed Needs placement Delirium precautions Waiting for placement (2) Urinary retention: (3) UTI (urinary tract infection): Plan: UTI ruled out Urine/Blood Culture negative (4) Urethral stricture: Plan: Urinary retention H/O prostate cancer s/p prostatectomy and urethral stricture Per records, patient previously used to self cath. Hernández Catheter discontinued Continue bladder scan Continue Flomax Voiding with no issues DVT Px Heparin SQ Code Status DNR/DNI Admission and Anticipated Discharge Date Admission Date: May 30, 2022 Subjective Patient is seen and examined at bedside Poor historian No new complaints Denies chest pain, dyspnea, abd pain Waiting for placement Review of Systems Review of Systems: All systems reviewed & are unremarkable except as noted in Subjective Physical Exam Physical Exam: Physical Exam: Vitals signs as noted above General Appearance:Moderately built and nourished, no apparent distress Head: normocephalic, Atraumatic Eyes: normal inspection, EOMI Neck: supple, Trachea midline Respiratory/Chest: Normal breath sounds, CTA, No accessory muscle use Cardiovascular: S1, S2, No murmur Abdomen/GI:Soft, Non tender, Bowel sounds present Extremities/Musculoskeletal:normal inspection, no edema Neurologic/Psych:AAOX1, grossly no focal neurological deficits Skin: normal color, warm Results & Data Results & Data ([facility]) Vital Signs (Past 12 Hours) Vital Signs Temp Pulse Resp BP Pulse Ox O2 Del Method 06/07/22 07:38 36.3 C L 50 L 18 112/65 91 Room Air Laboratory Results Short CBC 06/07/22 Range/Units 06:36 WBC 4.76 L (4.8-10.8) K/ul Hgb 13.2 L (14.0-18.0) g/dl Hct 40.0 L (40.1-51.0) % Plt Count 189 (130-400) K/uL
[2022-06-07] MEDS: QUEtiapine FUMARATE 25 MG TABLET PO SCH (19:50)
[2022-06-07] MEDS: MELATONIN 3 MG TAB PO SCH (19:51)
[2022-06-08] MEDS: HEPARIN SOD 5,000 UNIT/0.5 ML VIAL SQ SCH ×2 (07:29→19:42)
[2022-06-08] MEDS: TAMSULOSIN HCL 0.4 MG CAP PO SCH (07:29)
[2022-06-08] MEDS: POLYETHYLENE (MIRALAX) 17 GM PACK PO SCH (07:30)
--- NOTE | 2022-06-08 16:21 | Hospitalist Progress Note ---
Date of Service June 08, 2022 Assessment & Plan (1) Agitation due to dementia: Plan: Dementia with mood disturbance ? Agitation secondary to Urinary retention Appreciate psychiatry Input Continue melatonin, quetiapine Zyprexa as needed continue delirium precautions Waiting for placement (2) Urinary retention: (3) UTI (urinary tract infection): Plan: UTI ruled out Urine/Blood Culture negative (4) Urethral stricture: Plan: Urinary retention H/O prostate cancer s/p prostatectomy and urethral stricture Per records, patient previously used to self cath. Hernández Catheter discontinued Continue bladder scan Continue Flomax Voiding with no issues Monitor DVT Px Heparin SQ Code Status DNR/DNI Admission and Anticipated Discharge Date Admission Date: May 30, 2022 Subjective Patient is seen and examined at bedside Poor historian Sitting in chair comfortably during my encounter Denies chest pain, dyspnea, abd pain Waiting for placement Review of Systems Review of Systems: All systems reviewed & are unremarkable except as noted in Subjective Physical Exam Physical Exam: Physical Exam: Vitals signs as noted above General Appearance:Moderately built and nourished, no apparent distress Head: normocephalic, Atraumatic Eyes: normal inspection, EOMI Neck: supple, Trachea midline Respiratory/Chest: Normal breath sounds, CTA, No accessory muscle use Cardiovascular: S1, S2, No murmur Abdomen/GI:Soft, Non tender, Bowel sounds present Extremities/Musculoskeletal:normal inspection, no edema Neurologic/Psych:AAOX1, grossly no focal neurological deficits Skin: normal color, warm Results & Data Results & Data ([facility]) Vital Signs (Past 12 Hours) Vital Signs Temp Pulse Resp BP Pulse Ox O2 Del Method 06/08/22 15:35 36.7 C 57 L 18 123/71 94 Room Air 06/08/22 07:34 94 Room Air 06/08/22 07:30 36.6 C 51 L 18 120/69 93 Room Air
[2022-06-08] MEDS: MELATONIN 3 MG TAB PO SCH (19:42)
[2022-06-08] MEDS: QUEtiapine FUMARATE 25 MG TABLET PO SCH (19:42)
[2022-06-09] MEDS: TAMSULOSIN HCL 0.4 MG CAP PO SCH (07:42)
[2022-06-09] MEDS: POLYETHYLENE (MIRALAX) 17 GM PACK PO SCH (07:42)
[2022-06-09] MEDS: HEPARIN SOD 5,000 UNIT/0.5 ML VIAL SQ SCH ×2 (07:42→19:44)
--- NOTE | 2022-06-09 17:49 | Hospitalist Progress Note ---
Date of Service June 09, 2022 Assessment & Plan (1) Agitation due to dementia: Plan: Dementia with mood disturbance ? Agitation secondary to Urinary retention Appreciate psychiatry Input Continue melatonin, quetiapine Zyprexa as needed continue delirium precautions Waiting for placement Continue current management (2) Urinary retention: (3) UTI (urinary tract infection): Plan: UTI ruled out Urine/Blood Culture negative (4) Urethral stricture: Plan: Urinary retention H/O prostate cancer s/p prostatectomy and urethral stricture Per records, patient previously used to self cath. Hernández Catheter discontinued Continue bladder scan Continue Flomax Voiding with no issues Monitor DVT Px Heparin SQ Code Status DNR/DNI Admission and Anticipated Discharge Date Admission Date: May 30, 2022 Subjective Patient is seen and examined at bedside Poor historian No new complaints Denies chest pain, dyspnea, abd pain Waiting for placement Review of Systems Review of Systems: All systems reviewed & are unremarkable except as noted in Subjective Physical Exam Physical Exam: Physical Exam: Vitals signs as noted above General Appearance:Moderately built and nourished, no apparent distress Head: normocephalic, Atraumatic Eyes: normal inspection, EOMI Neck: supple, Trachea midline Respiratory/Chest: Normal breath sounds, CTA, No accessory muscle use Cardiovascular: S1, S2, No murmur Abdomen/GI:Soft, Non tender, Bowel sounds present Extremities/Musculoskeletal:normal inspection, no edema Neurologic/Psych:AAOX1, grossly no focal neurological deficits Skin: normal color, warm Results & Data Results & Data ([facility]) Vital Signs (Past 12 Hours) Vital Signs Temp Pulse Resp BP Pulse Ox O2 Del Method 06/09/22 14:10 36.9 C 90 18 106/52 L 98 Room Air 06/09/22 07:50 Room Air 06/09/22 07:07 36.7 C 74 18 117/70 97 Room Air
[2022-06-09] MEDS: MELATONIN 3 MG TAB PO SCH (19:43)
[2022-06-09] MEDS: QUEtiapine FUMARATE 25 MG TABLET PO SCH (19:43)
[2022-06-10 06:51] LABS: Hematocrit (blood only) 39.4 % (40.1-51.0); Hemoglobin 13.2 g/dl (14.0-18.0); Mean Corpuscular Hemoglobin 32.8 pg (25.0-34.0); Mean Corpuscular Hgb Conc 33.5 g/dL (32.0-36.0); Mean Corpuscular Volume 97.8 fL (80.0-100.0); Mean Platelet Volume 10.3 fL (9.4-12.4); Platelet Count 218 K/uL (130-400); RDW Standard Deviation 46.5 fL (36.4-46.3); Red Blood Count 4.03 M/uL (4.63-6.08); White Blood Count 5.08 K/ul (4.8-10.8)
[2022-06-10] MEDS: HEPARIN SOD 5,000 UNIT/0.5 ML VIAL SQ SCH ×2 (08:38→19:30)
[2022-06-10] MEDS: POLYETHYLENE (MIRALAX) 17 GM PACK PO SCH (08:38)
[2022-06-10] MEDS: TAMSULOSIN HCL 0.4 MG CAP PO SCH (08:38)
--- NOTE | 2022-06-10 18:05 | Hospitalist Progress Note ---
Date of Service June 10, 2022 Assessment & Plan (1) Agitation due to dementia: Plan: Dementia with mood disturbance ? Agitation secondary to Urinary retention Appreciate psychiatry Input Continue melatonin, quetiapine Zyprexa as needed continue delirium precautions Waiting for placement Case management to help with discharge planning (2) Urinary retention: (3) UTI (urinary tract infection): Plan: UTI ruled out Urine/Blood Culture negative (4) Urethral stricture: Plan: Urinary retention H/O prostate cancer s/p prostatectomy and urethral stricture Per records, patient previously used to self cath. Hernández Catheter discontinued Continue bladder scan Continue Flomax Voiding with no issues Monitor DVT Px Heparin SQ Code Status DNR/DNI Admission and Anticipated Discharge Date Admission Date: May 30, 2022 Subjective Patient is seen and examined at bedside Poor historian Denies chest pain, dyspnea, abd pain Waiting for placement No complaints Review of Systems Review of Systems: All systems reviewed & are unremarkable except as noted in Subjective Physical Exam Physical Exam: Physical Exam: Vitals signs as noted above General Appearance:Moderately built and nourished, no apparent distress Head: normocephalic, Atraumatic Eyes: normal inspection, EOMI Neck: supple, Trachea midline Respiratory/Chest: Normal breath sounds, CTA, No accessory muscle use Cardiovascular: S1, S2, No murmur Abdomen/GI:Soft, Non tender, Bowel sounds present Extremities/Musculoskeletal:normal inspection, no edema Neurologic/Psych:AAOX1, grossly no focal neurological deficits Skin: normal color, warm Results & Data Results & Data ([facility]) Vital Signs (Past 12 Hours) Vital Signs Temp Pulse Resp BP Pulse Ox O2 Del Method 06/10/22 15:25 37.1 C 61 18 103/57 L 95 Room Air 06/10/22 08:55 Room Air 06/10/22 08:27 36.6 C 65 16 131/93 99 Room Air Laboratory Results Short CBC 06/10/22 Range/Units 06:23 WBC 5.08 (4.8-10.8) K/ul Hgb 13.2 L (14.0-18.0) g/dl Hct 39.4 L (40.1-51.0) % Plt Count 218 (130-400) K/uL
[2022-06-10] MEDS: QUEtiapine FUMARATE 25 MG TABLET PO SCH (19:29)
[2022-06-10] MEDS: MELATONIN 3 MG TAB PO SCH (19:29)
[2022-06-11] MEDS: POLYETHYLENE (MIRALAX) 17 GM PACK PO SCH (07:07)
[2022-06-11] MEDS: TAMSULOSIN HCL 0.4 MG CAP PO SCH (07:07)
[2022-06-11] MEDS: HEPARIN SOD 5,000 UNIT/0.5 ML VIAL SQ SCH ×2 (07:07→19:33)
--- NOTE | 2022-06-11 15:15 | Hospitalist Progress Note ---
Date of Service June 11, 2022 Assessment & Plan (1) Agitation due to dementia: Plan: Dementia with mood disturbance ? Agitation secondary to Urinary retention Appreciate psychiatry Input Continue melatonin, quetiapine Zyprexa as needed continue delirium precautions Case management helping with placement Waiting for placement as family unable to provide care (2) Urinary retention: (3) UTI (urinary tract infection): Plan: UTI ruled out Urine/Blood Culture negative (4) Urethral stricture: Plan: Urinary retention H/O prostate cancer s/p prostatectomy and urethral stricture Per records, patient previously used to self cath. Hernández Catheter discontinued Continue bladder scan Continue Flomax Voiding with no issues Monitor DVT Px Heparin SQ Code Status DNR/DNI Admission and Anticipated Discharge Date Admission Date: May 30, 2022 Subjective Patient is seen and examined at bedside Poor historian due to hearing impairment Eager to get discharged Denies chest pain, dyspnea, abd pain Offers no complaints Review of Systems Review of Systems: All systems reviewed & are unremarkable except as noted in Subjective Physical Exam Physical Exam: Physical Exam: Vitals signs as noted above General Appearance:Moderately built and nourished, no apparent distress Head: normocephalic, Atraumatic Eyes: normal inspection, EOMI Neck: supple, Trachea midline Respiratory/Chest: Normal breath sounds, CTA, No accessory muscle use Cardiovascular: S1, S2, No murmur Abdomen/GI:Soft, Non tender, Bowel sounds present Extremities/Musculoskeletal:normal inspection, no edema Neurologic/Psych:AAOX1, grossly no focal neurological deficits Skin: normal color, warm Results & Data Results & Data ([facility]) Vital Signs (Past 12 Hours) Vital Signs Temp Pulse Resp BP Pulse Ox O2 Del Method 06/11/22 14:59 36.6 C 57 L 18 117/52 L 97 Room Air 06/11/22 07:39 36.4 C L 63 18 124/41 L 96 Room Air 06/11/22 07:23 Room Air
[2022-06-11] MEDS: QUEtiapine FUMARATE 25 MG TABLET PO SCH (19:33)
[2022-06-11] MEDS: MELATONIN 3 MG TAB PO SCH (19:33)
[2022-06-12] MEDS: HEPARIN SOD 5,000 UNIT/0.5 ML VIAL SQ SCH ×2 (08:23→20:21)
[2022-06-12] MEDS: TAMSULOSIN HCL 0.4 MG CAP PO SCH (08:23)
--- NOTE | 2022-06-12 14:07 | Hospitalist Progress Note ---
Date of Service June 12, 2022 Assessment & Plan (1) Agitation due to dementia: Plan: Dementia with mood disturbance ? Agitation secondary to Urinary retention Appreciate psychiatry Input Continue melatonin, quetiapine Zyprexa as needed continue delirium precautions Waiting for placement as family unable to provide care Plan to discharge once accepted (2) Urinary retention: (3) UTI (urinary tract infection): Plan: UTI ruled out Urine/Blood Culture negative (4) Urethral stricture: Plan: Urinary retention H/O prostate cancer s/p prostatectomy and urethral stricture Per records, patient previously used to self cath. Hernández Catheter discontinued Continue bladder scan Continue Flomax Voiding with no issues Monitor DVT Px Heparin SQ Code Status DNR/DNI Admission and Anticipated Discharge Date Admission Date: May 30, 2022 Subjective Patient is seen and examined at bedside Poor historian due to hearing impairment Offers no complaints Denies chest pain, dyspnea, abd pain Waiting for placement Review of Systems Review of Systems: All systems reviewed & are unremarkable except as noted in Subjective Physical Exam Physical Exam: Physical Exam: Vitals signs as noted above General Appearance:Moderately built and nourished, no apparent distress Head: normocephalic, Atraumatic Eyes: normal inspection, EOMI Neck: supple, Trachea midline Respiratory/Chest: Normal breath sounds, CTA, No accessory muscle use Cardiovascular: S1, S2, No murmur Abdomen/GI:Soft, Non tender, Bowel sounds present Extremities/Musculoskeletal:normal inspection, no edema Neurologic/Psych:AAOX1, grossly no focal neurological deficits Skin: normal color, warm Results & Data Results & Data ([facility]) Vital Signs (Past 12 Hours) Vital Signs Temp Pulse Resp BP Pulse Ox O2 Del Method 06/12/22 07:20 36.6 C 48 L 18 109/60 94 Room Air
[2022-06-12] MEDS: MELATONIN 3 MG TAB PO SCH (20:19)
[2022-06-12] MEDS: QUEtiapine FUMARATE 25 MG TABLET PO SCH (20:19)
[2022-06-13] MEDS: HEPARIN SOD 5,000 UNIT/0.5 ML VIAL SQ SCH ×2 (09:00→20:20)
[2022-06-13] MEDS: TAMSULOSIN HCL 0.4 MG CAP PO SCH (09:01)
--- NOTE | 2022-06-13 11:21 | Hospitalist Progress Note ---
Date of Service June 13, 2022 Assessment & Plan (1) Agitation due to dementia: Plan: Dementia with mood disturbance ? Agitation secondary to Urinary retention Appreciate psychiatry Input Continue melatonin, quetiapine Zyprexa as needed continue delirium precautions Waiting for placement as family unable to provide care Plan to discharge once accepted (2) Urinary retention: (3) UTI (urinary tract infection): Plan: UTI ruled out Urine/Blood Culture negative (4) Urethral stricture: Plan: Urinary retention H/O prostate cancer s/p prostatectomy and urethral stricture Per records, patient previously used to self cath. Hernández Catheter discontinued Continue bladder scan Continue Flomax Voiding with no issues Monitor DVT Px- Heparin SQ Code Status - DNR/DNI Admission and Anticipated Discharge Date Admission Date: May 30, 2022 Subjective Patient is seen and examined at bedside Sitting up in bed in NAD Occasionally impulsive per RN Asking about when is he going to leave the hospital Poor historian due to hearing impairment Offers no complaints Denies chest pain, dyspnea, abd pain Waiting for placement Review of Systems Review of Systems: All systems reviewed & are unremarkable except as noted in Subjective Physical Exam Physical Exam: General Appearance:Moderately built and nourished, no apparent distress Head: normocephalic, Atraumatic Eyes: normal inspection, EOMI Neck: supple Respiratory/Chest: Normal breath sounds, CTA, No accessory muscle use Cardiovascular: S1, S2, No murmur Abdomen/GI:Soft, Non tender, Bowel sounds present Extremities/Musculoskeletal:normal inspection, no edema Neurologic/Psych:AAOX1, grossly no focal neurological deficits Skin: normal color, warm Results & Data Results & Data ([facility]) Vital Signs (Past 12 Hours) Vital Signs Temp Pulse Resp BP Pulse Ox O2 Del Method 06/13/22 08:00 36.6 C 83 18 144/64 H 96 Room Air Medications Administered Current Inpatient Medications Acetaminophen (Acetaminophen 325 Mg Tab) 650 mg PO Q4H PRN PRN Reason: pain/fever Stop: 06/29/22 19:34 Heparin Sodium (Porcine) (Heparin Sod 5,000 Unit/0.5 Ml Vial) 5,000 units SQ Q12 JASON Stop: 07/01/22 20:59 Last Admin: 06/13/22 09:00 Dose: 5,000 units Melatonin (Melatonin 3 Mg Tab) 3 mg PO HS JASON Stop: 06/30/22 20:59 Last Admin: 06/12/22 20:19 Dose: 3 mg Olanzapine (Olanzapine 10 Mg/2.1 Ml Sdv) 5 mg IM Q8H PRN PRN Reason: Agitation Stop: 06/29/22 19:34 Last Admin: 06/04/22 16:01 Dose: 5 mg Polyethylene Glycol (Polyethylene (Miralax) 17 Gm Pack) 17 gm PO DAILY PRN PRN Reason: Constipation Stop: 07/11/22 11:30 Quetiapine Fumarate (Quetiapine Fumarate 25 Mg Tablet) 50 mg PO [facility] Stop: 06/30/22 20:59 Last Admin: 06/12/22 20:19 Dose: 50 mg Tamsulosin HCl (Tamsulosin Hcl 0.4 Mg Cap) 0.4 mg PO QAM [facility] Stop: 07/04/22 12:29 Last Admin: 06/13/22 09:01 Dose: 0.4 mg
[2022-06-13] MEDS: QUEtiapine FUMARATE 25 MG TABLET PO SCH (20:19)
[2022-06-13] MEDS: MELATONIN 3 MG TAB PO SCH (20:20)
[2022-06-14] MEDS: TAMSULOSIN HCL 0.4 MG CAP PO SCH (08:36)
[2022-06-14] MEDS: HEPARIN SOD 5,000 UNIT/0.5 ML VIAL SQ SCH ×2 (08:36→20:04)
--- NOTE | 2022-06-14 11:05 | Hospitalist Progress Note ---
Date of Service June 14, 2022 Assessment & Plan (1) Agitation due to dementia: Plan: Dementia with mood disturbance ? Agitation secondary to Urinary retention Appreciate psychiatry Input Continue melatonin, quetiapine Zyprexa as needed continue delirium precautions Waiting for placement as family unable to provide care Plan to discharge once accepted (2) Urinary retention: (3) UTI (urinary tract infection): Plan: UTI ruled out Urine/Blood Culture negative (4) Urethral stricture: Plan: Urinary retention H/O prostate cancer s/p prostatectomy and urethral stricture Per records, patient previously used to self cath. Hernández Catheter discontinued Continue bladder scan Continue Flomax Voiding with no issues Monitor DVT Px- Heparin SQ Code Status - DNR/DNI Admission and Anticipated Discharge Date Admission Date: May 30, 2022 Subjective Patient is seen and examined at bedside Sitting up in bed in NAD Occasionally impulsive per RN Poor historian due to hearing impairment Offers no complaints Denies chest pain, dyspnea, abd pain [facility] Review of Systems Review of Systems: All systems reviewed & are unremarkable except as noted in Subjective Physical Exam Physical Exam: General Appearance:Moderately built and nourished, no apparent distress Head: normocephalic, Atraumatic Eyes: normal inspection, EOMI Neck: supple Respiratory/Chest: Normal breath sounds, CTA, No accessory muscle use Cardiovascular: S1, S2, No murmur Abdomen/GI:Soft, Non tender, Bowel sounds present Extremities/Musculoskeletal:normal inspection, no edema Neurologic/Psych:AAOX1, grossly no focal neurological deficits Skin: normal color, warm Results & Data Results & Data ([facility]) Vital Signs (Past 12 Hours) Vital Signs Temp Pulse Resp BP BP Pulse Ox O2 Del Method 06/14/22 10:15 61 18 124/73 06/14/22 07:20 36.5 C 48 L 18 123/63 93 Room Air Medications Administered Current Inpatient Medications Acetaminophen (Acetaminophen 325 Mg Tab) 650 mg PO Q4H PRN PRN Reason: pain/fever Stop: 06/29/22 19:34 Heparin Sodium (Porcine) (Heparin Sod 5,000 Unit/0.5 Ml Vial) 5,000 units SQ Q12 JASON Stop: 07/01/22 20:59 Last Admin: 06/14/22 08:36 Dose: 5,000 units Melatonin (Melatonin 3 Mg Tab) 3 mg PO HS JASON Stop: 06/30/22 20:59 Last Admin: 06/13/22 20:20 Dose: 3 mg Olanzapine (Olanzapine 10 Mg/2.1 Ml Sdv) 5 mg IM Q8H PRN PRN Reason: Agitation Stop: 06/29/22 19:34 Last Admin: 06/04/22 16:01 Dose: 5 mg Polyethylene Glycol (Polyethylene (Miralax) 17 Gm Pack) 17 gm PO DAILY PRN PRN Reason: Constipation Stop: 07/11/22 11:30 Quetiapine Fumarate (Quetiapine Fumarate 25 Mg Tablet) 50 mg PO [facility] Stop: 06/30/22 20:59 Last Admin: 06/13/22 20:19 Dose: 50 mg Tamsulosin HCl (Tamsulosin Hcl 0.4 Mg Cap) [facility] [facility] [place]: 07/04/22 12:29 Last Admin: 06/14/22 08:36 Dose: 0.4 mg
[2022-06-14] MEDS: MELATONIN 3 MG TAB PO SCH (20:03)
[2022-06-14] MEDS: QUEtiapine FUMARATE 25 MG TABLET PO SCH (20:03)
[2022-06-15] MEDS: HEPARIN SOD 5,000 UNIT/0.5 ML VIAL SQ SCH ×2 (07:40→20:25)
[2022-06-15] MEDS: TAMSULOSIN HCL 0.4 MG CAP PO SCH (07:40)
--- NOTE | 2022-06-15 08:13 | Hospitalist Progress Note ---
Date of Service June 15, 2022 Assessment & Plan (1) Agitation due to dementia: Plan: Dementia with mood disturbance ? Agitation secondary to Urinary retention Appreciate psychiatry Input Continue melatonin, quetiapine Zyprexa as needed continue delirium precautions Waiting for placement as family unable to provide care Plan to discharge once accepted (2) Urinary retention: (3) UTI (urinary tract infection): Plan: UTI ruled out Urine/Blood Culture negative (4) Urethral stricture: Plan: Urinary retention H/O prostate cancer s/p prostatectomy and urethral stricture Per records, patient previously used to self cath. Hernández Catheter discontinued Continue bladder scan Continue Flomax Voiding with no issues Monitor DVT Px- Heparin SQ Code Status - DNR/DNI Admission and Anticipated Discharge Date Admission Date: May 30, 2022 Subjective Patient is seen and examined at bedside Sitting up in chair, eating breakfast, in NAD Occasionally impulsive per RN Poor historian due to hearing impairment Offers no complaints Denies chest pain, dyspnea, abd pain Waiting for placement - likely [place] home Review of Systems Review of Systems: All systems reviewed & are unremarkable except as noted in Subjective Physical Exam Physical Exam: General Appearance:Moderately built and nourished, no apparent distress Head: normocephalic, Atraumatic Eyes: normal inspection, EOMI Neck: supple Respiratory/Chest: Normal breath sounds, CTA, No accessory muscle use Cardiovascular: S1, S2, No murmur Abdomen/GI:Soft, Non tender, Bowel sounds present Extremities/Musculoskeletal:normal inspection, no edema Neurologic/Psych:AAOX1, grossly no focal neurological deficits Skin: normal color, warm Results & Data Results & Data ([facility]) Vital Signs (Past 12 Hours) Vital Signs Temp Pulse Resp BP Pulse Ox O2 Del Method 06/15/22 07:37 36.5 C 50 L 18 115/62 94 Room Air 06/14/22 21:53 36.6 C 55 L 18 131/53 L 93 Room Air Medications Administered Current Inpatient Medications Acetaminophen (Acetaminophen 325 Mg Tab) 650 mg PO Q4H PRN PRN Reason: pain/fever Stop: 06/29/22 19:34 Heparin Sodium (Porcine) (Heparin Sod 5,000 Unit/0.5 Ml Vial) 5,000 units SQ Q12 JASON Stop: 07/01/22 20:59 Last Admin: 06/15/22 07:40 Dose: 5,000 units Melatonin (Melatonin 3 Mg Tab) 3 mg PO HS JASON Stop: 06/30/22 20:59 Last Admin: 06/14/22 20:03 Dose: 3 mg Olanzapine (Olanzapine 10 Mg/2.1 Ml Sdv) 5 mg IM Q8H PRN PRN Reason: Agitation Stop: 06/29/22 19:34 Last Admin: 06/04/22 16:01 Dose: 5 mg Polyethylene Glycol (Polyethylene (Miralax) 17 Gm Pack) 17 gm PO DAILY PRN PRN Reason: Constipation Stop: 07/11/22 11:30 Quetiapine Fumarate (Quetiapine Fumarate 25 Mg Tablet) 50 mg PO [facility] Stop: 06/30/22 20:59 Last Admin: 06/14/22 20:03 Dose: 50 mg Tamsulosin HCl (Tamsulosin Hcl 0.4 Mg Cap) 0.4 mg PO [facility] Stop: 07/04/22 12:29 Last Admin: 06/15/22 07:40 Dose: 0.4 mg
[2022-06-15] MEDS ORDERED: bisacodyL 10 MG SUPP PR STA (18:34)
[2022-06-15] MEDS ORDERED: bisacodyL 10 MG SUPP PR ONE (18:39)
[2022-06-15] MEDS: POLYETHYLENE (MIRALAX) 17 GM PACK PO PRN (18:41)
[2022-06-15] MEDS: SENNA 8.6 MG TAB PO SCH (19:50)
[2022-06-15] MEDS: QUEtiapine FUMARATE 25 MG TABLET PO SCH (20:25)
[2022-06-15] MEDS: MELATONIN 3 MG TAB PO SCH (20:26)
--- NOTE | 2022-06-16 06:38 | Communication Note ---
Date of Service: June 16, 2022 Interim progress reviewed. Patient awaiting placement. Cooperative with hs Xiomy. IM Zyprexa will be d/c as last use 06/04/22. No additional recs at this time. Please contact liaison for any additional concerns to determine if reconsultation is necessary.
[2022-06-16] MEDS: SENNA 8.6 MG TAB PO SCH (08:34)
[2022-06-16] MEDS: TAMSULOSIN HCL 0.4 MG CAP PO SCH (08:35)
[2022-06-16] MEDS: HEPARIN SOD 5,000 UNIT/0.5 ML VIAL SQ SCH ×2 (08:35→19:51)
--- NOTE | 2022-06-16 11:46 | Hospitalist Progress Note ---
Date of Service June 16, 2022 Assessment & Plan (1) Agitation due to dementia: Plan: Dementia with mood disturbance ? Agitation secondary to Urinary retention Appreciate psychiatry Input Continue melatonin, quetiapine continue delirium precautions Waiting for placement as family unable to provide care Plan to discharge once accepted (2) Urinary retention: (3) UTI (urinary tract infection): Plan: UTI ruled out Urine/Blood Culture negative (4) Urethral stricture: Plan: Urinary retention H/O prostate cancer s/p prostatectomy and urethral stricture Per records, patient previously used to self cath. Hernández Catheter discontinued Continue bladder scan Continue Flomax Voiding with no issues Monitor DVT Px- Heparin SQ Code Status - DNR/DNI Admission and Anticipated Discharge Date Admission Date: May 30, 2022 Subjective Patient is seen and examined at bedside Standing up in the bathroom, cleaning up, with OT Offers no complaints Denies chest pain, dyspnea, abd pain Waiting for placement - likely [place] home Review of Systems Review of Systems: All systems reviewed & are unremarkable except as noted in Subjective Physical Exam Physical Exam: General Appearance:Moderately built and nourished, no apparent distress Head: normocephalic, Atraumatic Eyes: normal inspection, EOMI Neck: supple Respiratory/Chest: Normal breath sounds, CTA, No accessory muscle use Cardiovascular: S1, S2, No murmur Abdomen/GI:Soft, Non tender, Bowel sounds present Extremities/Musculoskeletal:normal inspection, no edema Neurologic/Psych:AAOX1, grossly no focal neurological deficits Skin: normal color, warm Results & Data Results & Data ([facility]) Vital Signs (Past 12 Hours) Vital Signs Temp Pulse Resp BP Pulse Ox O2 Del Method 06/16/22 07:32 36.4 C L 64 16 136/62 94 Room Air Medications Administered Current Inpatient Medications Acetaminophen (Acetaminophen 325 Mg Tab) 650 mg PO Q4H PRN PRN Reason: pain/fever Stop: 06/29/22 19:34 Heparin Sodium (Porcine) (Heparin Sod 5,000 Unit/0.5 Ml Vial) 5,000 units SQ Q12 JASON Stop: 07/01/22 20:59 Last Admin: 06/16/22 08:35 Dose: 5,000 units Melatonin (Melatonin 3 Mg Tab) 3 mg PO HS JASON Stop: 06/30/22 20:59 Last Admin: 06/15/22 20:26 Dose: 3 mg Polyethylene Glycol (Polyethylene (Miralax) 17 Gm Pack) 17 gm PO DAILY PRN PRN Reason: Constipation Stop: 07/11/22 11:30 Last Admin: 06/15/22 18:41 Dose: 17 gm Quetiapine Fumarate (Quetiapine Fumarate 25 Mg Tablet) 50 mg PO [facility] Stop: 06/30/22 20:59 Last Admin: 06/15/22 20:25 Dose: 50 mg Sennosides (Senna 8.6 Mg Tab) 8.6 mg PO [facility] Stop: 07/15/22 18:59 Last Admin: 06/16/22 08:34 Dose: 8.6 mg Tamsulosin HCl (Tamsulosin Hcl 0.4 Mg Cap) [facility] Stop: 07/04/22 12:29 Last Admin: 06/16/22 08:35 Dose: 0.4 mg
[2022-06-16] MEDS: QUEtiapine FUMARATE 25 MG TABLET PO SCH (19:51)
[2022-06-16] MEDS: MELATONIN 3 MG TAB PO SCH (19:51)
[2022-06-17] MEDS: HEPARIN SOD 5,000 UNIT/0.5 ML VIAL SQ SCH ×2 (07:46→20:13)
[2022-06-17] MEDS: TAMSULOSIN HCL 0.4 MG CAP PO SCH (07:46)
[2022-06-17] MEDS: SENNA 8.6 MG TAB PO SCH (07:46)
--- NOTE | 2022-06-17 08:30 | Hospitalist Progress Note ---
Date of Service June 17, 2022 Assessment & Plan (1) Agitation due to dementia: Plan: Dementia with mood disturbance ? Agitation secondary to Urinary retention Appreciate psychiatry Input Continue melatonin, quetiapine continue delirium precautions Waiting for placement as family unable to provide care Plan to discharge once accepted (2) Urinary retention: (3) UTI (urinary tract infection): Plan: UTI ruled out Urine/Blood Culture negative (4) Urethral stricture: Plan: Urinary retention H/O prostate cancer s/p prostatectomy and urethral stricture Per records, patient previously used to self cath. Hernández Catheter discontinued Continue bladder scan Continue Flomax Voiding with no issues Monitor DVT Px- Heparin SQ Code Status - DNR/DNI Admission and Anticipated Discharge Date Admission Date: May 30, 2022 Subjective Patient is seen and examined at bedside Laying in bed in NAD, cooperative with exam Offers no complaints Denies chest pain, dyspnea, abd pain Waiting for placement - likely [place] home Review of Systems Review of Systems: All systems reviewed & are unremarkable except as noted in Subjective Physical Exam Physical Exam: General Appearance: Moderately built and nourished, no apparent distress Head: normocephalic, Atraumatic Eyes: normal inspection, EOMI Neck: supple Respiratory/Chest: Normal breath sounds, CTA, No accessory muscle use Cardiovascular: S1, S2, No murmur Abdomen/GI:Soft, Non tender, Bowel sounds present Extremities/Musculoskeletal:normal inspection, no edema Neurologic/Psych: awake and alert, answers simple questions appropriately, speech fluent, cooperative, moves extremities Skin: normal color, warm Results & Data Results & Data ([facility]) Vital Signs (Past 12 Hours) Vital Signs Temp Pulse Resp BP Pulse Ox O2 Del Method 06/17/22 07:18 36.4 C L 44 L 17 131/74 96 Room Air 06/16/22 22:14 36.7 C 59 L 19 128/80 95 Room Air Medications Administered Current Inpatient Medications Acetaminophen (Acetaminophen 325 Mg Tab) 650 mg PO Q4H PRN PRN Reason: pain/fever Stop: 06/29/22 19:34 Heparin Sodium (Porcine) (Heparin Sod 5,000 Unit/0.5 Ml Vial) 5,000 units SQ Q12 JASON Stop: 07/01/22 20:59 Last Admin: 06/17/22 07:46 Dose: 5,000 units Melatonin (Melatonin 3 Mg Tab) 3 mg PO HS JASON Stop: 06/30/22 20:59 Last Admin: 06/16/22 19:51 Dose: 3 mg Polyethylene Glycol (Polyethylene (Miralax) 17 Gm Pack) 17 gm PO DAILY PRN PRN Reason: Constipation Stop: 07/11/22 11:30 Last Admin: 06/15/22 18:41 Dose: 17 gm Quetiapine Fumarate (Quetiapine Fumarate 25 Mg Tablet) 50 mg PO [facility] Stop: 06/30/22 20:59 Last Admin: 06/16/22 19:51 Dose: 50 mg Sennosides (Senna 8.6 Mg Tab) 8.6 mg [facility] Stop: 07/15/22 18:59 Last Admin: 06/17/22 07:46 Dose: Not Given Tamsulosin HCl (Tamsulosin Hcl 0.4 Mg Cap) 0.4 mg PO [facility] Stop: 07/04/22 12:29 Last Admin: 06/17/22 07:46 Dose: 0.4 mg
[2022-06-17] MEDS: QUEtiapine FUMARATE 25 MG TABLET PO SCH (20:13)
[2022-06-17] MEDS: MELATONIN 3 MG TAB PO SCH (20:13)
[2022-06-18] MEDS: HEPARIN SOD 5,000 UNIT/0.5 ML VIAL SQ SCH ×2 (08:19→20:30)
[2022-06-18] MEDS: TAMSULOSIN HCL 0.4 MG CAP PO SCH (08:19)
[2022-06-18] MEDS: SENNA 8.6 MG TAB PO SCH (08:19)
--- NOTE | 2022-06-18 16:26 | Hospitalist Progress Note ---
Date of Service June 18, 2022 Assessment & Plan (1) Agitation due to dementia: Plan: Dementia with mood disturbance ? Agitation secondary to Urinary retention Appreciate psychiatry Input Continue melatonin, quetiapine Zyprexa as needed continue delirium precautions Waiting for placement as family unable to provide care Placement pending (2) Urinary retention: (3) UTI (urinary tract infection): Plan: UTI ruled out Urine/Blood Culture negative (4) Urethral stricture: Plan: Urinary retention H/O prostate cancer s/p prostatectomy and urethral stricture Per records, patient previously used to self cath. Hernández Catheter discontinued Continue bladder scan Continue Flomax Monitor DVT Px Heparin SQ Code Status DNR/DNI Admission and Anticipated Discharge Date Admission Date: May 30, 2022 Subjective Patient is seen and examined at bedside Poor historian due to hearing impairment " Can I be discharged. When I am going to Rehab" Denies chest pain, dyspnea, abd pain Waiting for placement Review of Systems Review of Systems: All systems reviewed & are unremarkable except as noted in Subjective Physical Exam Physical Exam: Physical Exam: Vitals signs as noted above General Appearance:Moderately built and nourished, no apparent distress Head: normocephalic, Atraumatic Eyes: normal inspection, EOMI Neck: supple, Trachea midline Respiratory/Chest: Normal breath sounds, CTA, No accessory muscle use Cardiovascular: S1, S2, No murmur Abdomen/GI:Soft, Non tender, Bowel sounds present Extremities/Musculoskeletal:normal inspection, no edema Neurologic/Psych:AAOX1, grossly no focal neurological deficits, +Hearing impairment Skin: normal color, warm
[2022-06-18] MEDS: QUEtiapine FUMARATE 25 MG TABLET PO SCH (20:29)
[2022-06-18] MEDS: MELATONIN 3 MG TAB PO SCH (20:30)
[2022-06-19] MEDS: SENNA 8.6 MG TAB PO SCH (08:49)
[2022-06-19] MEDS: TAMSULOSIN HCL 0.4 MG CAP PO SCH (08:49)
[2022-06-19] MEDS: HEPARIN SOD 5,000 UNIT/0.5 ML VIAL SQ SCH ×2 (08:50→20:02)
--- NOTE | 2022-06-19 15:31 | Hospitalist Progress Note ---
Date of Service June 19, 2022 Assessment & Plan (1) Agitation due to dementia: Plan: Dementia with mood disturbance ? Agitation secondary to Urinary retention Appreciate psychiatry Input Continue melatonin, quetiapine Zyprexa as needed continue delirium precautions Waiting for placement as family unable to provide care Plan to discharge once placement available (2) Urinary retention: (3) UTI (urinary tract infection): Plan: UTI ruled out Urine/Blood Culture negative (4) Urethral stricture: Plan: Urinary retention H/O prostate cancer s/p prostatectomy and urethral stricture Per records, patient previously used to self cath. Hernández Catheter discontinued Continue bladder scan Continue Flomax Monitor DVT Px Heparin SQ Code Status DNR/DNI Admission and Anticipated Discharge Date Admission Date: May 30, 2022 Subjective Patient is seen and examined at bedside Poor historian due to hearing impairment Denies chest pain, dyspnea, abd pain Eager to get discharged Review of Systems Review of Systems: All systems reviewed & are unremarkable except as noted in Subjective Physical Exam Physical Exam: Physical Exam: Vitals signs as noted above General Appearance:Moderately built and nourished, no apparent distress Head: normocephalic, Atraumatic Eyes: normal inspection, EOMI Neck: supple, Trachea midline Respiratory/Chest: Normal breath sounds, CTA, No accessory muscle use Cardiovascular: S1, S2, No murmur Abdomen/GI:Soft, Non tender, Bowel sounds present Extremities/Musculoskeletal:normal inspection, no edema Neurologic/Psych:AAOX1, grossly no focal neurological deficits, +Hearing impa irment Skin: normal color, warm Results & Data Results & Data ([facility]) Vital Signs (Past 12 Hours) Vital Signs Temp Pulse Resp BP Pulse Ox O2 Del Method 06/19/22 08:12 36.6 C 81 17 122/55 L 91 Room Air
[2022-06-19] MEDS: MELATONIN 3 MG TAB PO SCH (20:01)
[2022-06-19] MEDS: QUEtiapine FUMARATE 25 MG TABLET PO SCH (20:02)
[2022-06-20] MEDS: TAMSULOSIN HCL 0.4 MG CAP PO SCH (08:45)
[2022-06-20] MEDS: HEPARIN SOD 5,000 UNIT/0.5 ML VIAL SQ SCH ×2 (08:45→20:25)
[2022-06-20] MEDS: SENNA 8.6 MG TAB PO SCH (08:45)
--- NOTE | 2022-06-20 15:11 | Hospitalist Progress Note ---
Date of Service June 20, 2022 Assessment & Plan (1) Agitation due to dementia: Plan: Dementia with mood disturbance ? Agitation secondary to Urinary retention Appreciate psychiatry Input Continue melatonin, quetiapine Zyprexa as needed continue delirium precautions Waiting for placement (2) Urinary retention: (3) UTI (urinary tract infection): Plan: UTI ruled out Urine/Blood Culture negative (4) Urethral stricture: Plan: Urinary retention H/O prostate cancer s/p prostatectomy and urethral stricture Per records, patient previously used to self cath. Hernández Catheter discontinued Continue bladder scan Continue Flomax Monitor DVT Px Heparin SQ Code Status DNR/DNI Admission and Anticipated Discharge Date Admission Date: May 30, 2022 Subjective Patient is seen and examined at bedside Poor historian due to hearing impairment No new complaints Denies chest pain, dyspnea, abd pain Waiting for placement Review of Systems Review of Systems: All systems reviewed & are unremarkable except as noted in Subjective Physical Exam Physical Exam: Physical Exam: Vitals signs as noted above General Appearance:Moderately built and nourished, no apparent distress Head: normocephalic, Atraumatic Eyes: normal inspection, EOMI Neck: supple, Trachea midline Respiratory/Chest: Normal breath sounds, CTA, No accessory muscle use Cardiovascular: S1, S2, No murmur Abdomen/GI:Soft, Non tender, Bowel sounds present Extremities/Musculoskeletal:normal inspection, no edema Neurologic/Psych:AAOX1, grossly no focal neurological deficits, +Hearing impairment Skin: normal color, warm Results & Data Results & Data ([facility]) Vital Signs (Past 12 Hours) Vital Signs Temp Pulse Resp BP Pulse Ox O2 Del Method 06/20/22 08:00 36.4 C L 50 L 18 136/61 96 Room Air 06/20/22 07:00 Room Air
[2022-06-20] MEDS: QUEtiapine FUMARATE 25 MG TABLET PO SCH (20:24)
[2022-06-20] MEDS: MELATONIN 3 MG TAB PO SCH (20:24)
[2022-06-21] MEDS: TAMSULOSIN HCL 0.4 MG CAP PO SCH (08:15)
[2022-06-21] MEDS: HEPARIN SOD 5,000 UNIT/0.5 ML VIAL SQ SCH ×2 (08:15→20:23)
[2022-06-21] MEDS: SENNA 8.6 MG TAB PO SCH (08:15)
--- NOTE | 2022-06-21 15:01 | Hospitalist Progress Note ---
Date of Service June 21, 2022 Assessment & Plan (1) Agitation due to dementia: Plan: Dementia with mood disturbance ? Agitation secondary to Urinary retention Appreciate psychiatry Input Continue melatonin, quetiapine Zyprexa as needed continue delirium precautions Waiting for placement Continue current management (2) Urinary retention: (3) UTI (urinary tract infection): Plan: UTI ruled out Urine/Blood Culture negative (4) Urethral stricture: Plan: Urinary retention H/O prostate cancer s/p prostatectomy and urethral stricture Per records, patient previously used to self cath. Hernández Catheter discontinued Continue bladder scan Continue Flomax Monitor DVT Px Heparin SQ Code Status DNR/DNI Admission and Anticipated Discharge Date Admission Date: May 30, 2022 Subjective Patient is seen and examined at bedside Poor historian due to hearing impairment Denies chest pain, dyspnea, abd pain Waiting for placement No complaints Review of Systems Review of Systems: All systems reviewed & are unremarkable except as noted in Subjective Physical Exam Physical Exam: Physical Exam: Vitals signs as noted above General Appearance:Moderately built and nourished, no apparent distress Head: normocephalic, Atraumatic Eyes: normal inspection, EOMI Neck: supple, Trachea midline Respiratory/Chest: Normal breath sounds, CTA, No accessory muscle use Cardiovascular: S1, S2, No murmur Abdomen/GI:Soft, Non tender, Bowel sounds present Extremities/Musculoskeletal:normal inspection, no edema Neurologic/Psych:AAOX1, grossly no focal neurological deficits, +Hearing impairment Skin: normal color, warm Results & Data Results & Data ([facility]) Vital Signs (Past 12 Hours) Vital Signs Temp Pulse Resp BP Pulse Ox O2 Del Method 06/21/22 08:00 36.6 C 55 L 18 133/62 96 Room Air
[2022-06-21] MEDS: QUEtiapine FUMARATE 25 MG TABLET PO SCH (20:23)
[2022-06-21] MEDS: MELATONIN 3 MG TAB PO SCH (20:23)
[2022-06-22] MEDS: HEPARIN SOD 5,000 UNIT/0.5 ML VIAL SQ SCH ×2 (08:27→19:40)
[2022-06-22] MEDS: TAMSULOSIN HCL 0.4 MG CAP PO SCH (08:27)
[2022-06-22] MEDS: SENNA 8.6 MG TAB PO SCH (08:27)
[2022-06-22] MEDS: POLYETHYLENE (MIRALAX) 17 GM PACK PO PRN (09:33)
--- NOTE | 2022-06-22 15:39 | Hospitalist Progress Note ---
Date of Service June 22, 2022 Assessment & Plan (1) Agitation due to dementia: Plan: Dementia with mood disturbance ? Agitation secondary to Urinary retention Appreciate psychiatry Input Continue melatonin, quetiapine Zyprexa as needed continue delirium precautions Waiting for placement (2) Urinary retention: (3) UTI (urinary tract infection): Plan: UTI ruled out Urine/Blood Culture negative (4) Urethral stricture: Plan: Urinary retention H/O prostate cancer s/p prostatectomy and urethral stricture Per records, patient previously used to self cath. Hernández Catheter discontinued Continue bladder scan Continue Flomax Monitor DVT Px Heparin SQ Code Status DNR/DNI Admission and Anticipated Discharge Date Admission Date: May 30, 2022 Subjective Patient is seen and examined at bedside Denies chest pain, dyspnea, abd pain Waiting for placement Feels well Review of Systems Review of Systems: All systems reviewed & are unremarkable except as noted in Subjective Physical Exam Physical Exam: Physical Exam: Vitals signs as noted above General Appearance:Moderately built and nourished, no apparent distress Head: normocephalic, Atraumatic Eyes: normal inspection, EOMI Neck: supple, Trachea midline Respiratory/Chest: Normal breath sounds, CTA, No accessory muscle use Cardiovascular: S1, S2, No murmur Abdomen/GI:Soft, Non tender, Bowel sounds present Extremities/Musculoskeletal:normal inspection, no edema Neurologic/Psych:AAOX1, grossly no focal neurological deficits, +Hearing impairment Skin: normal color, warm Results & Data Results & Data ([facility]) Vital Signs (Past 12 Hours) Vital Signs Temp Pulse Resp BP Pulse Ox O2 Del Method 06/22/22 15:05 36.8 C 53 L 20 134/86 94 Room Air 06/22/22 07:08 36.7 C 45 L 20 130/50 L 94 Room Air
[2022-06-22] MEDS: MELATONIN 3 MG TAB PO SCH (19:40)
[2022-06-22] MEDS: QUEtiapine FUMARATE 25 MG TABLET PO SCH (19:40)
[2022-06-23] MEDS: TAMSULOSIN HCL 0.4 MG CAP PO SCH (07:30)
[2022-06-23] MEDS: HEPARIN SOD 5,000 UNIT/0.5 ML VIAL SQ SCH ×2 (07:30→20:13)
[2022-06-23] MEDS: SENNA 8.6 MG TAB PO SCH (07:30)
[2022-06-23] MEDS: POLYETHYLENE (MIRALAX) 17 GM PACK PO PRN (10:42)
--- NOTE | 2022-06-23 16:54 | Hospitalist Progress Note ---
Date of Service June 23, 2022 Assessment & Plan (1) Agitation due to dementia: Plan: Dementia with mood disturbance ? Agitation secondary to Urinary retention Appreciate psychiatry Input Continue melatonin, quetiapine Zyprexa as needed continue delirium precautions Waiting for placement Continue current medications (2) Urinary retention: (3) UTI (urinary tract infection): Plan: UTI ruled out Urine/Blood Culture negative (4) Urethral stricture: Plan: Urinary retention H/O prostate cancer s/p prostatectomy and urethral stricture Per records, patient previously used to self cath. Hernández Catheter discontinued Continue bladder scan Continue Flomax Monitor DVT Px Heparin SQ Code Status DNR/DNI Admission and Anticipated Discharge Date Admission Date: May 30, 2022 Subjective Patient is seen and examined at bedside No new complaints Discussed with family at bedside Denies chest pain, dyspnea, abd pain Waiting for placement Review of Systems Review of Systems: All systems reviewed & are unremarkable except as noted in Subjective Physical Exam Physical Exam: Physical Exam: Vitals signs as noted above General Appearance:Moderately built and nourished, no apparent distress Head: normocephalic, Atraumatic Eyes: normal inspection, EOMI Neck: supple, Trachea midline Respiratory/Chest: Normal breath sounds, CTA, No accessory muscle use Cardiovascular: S1, S2, No murmur Abdomen/GI:Soft, Non tender, Bowel sounds present Extremities/Musculoskeletal:normal inspection, no edema Neurologic/Psych:AAOX1, grossly no focal neurological deficits, +Hearing impairment Skin: normal color, warm Results & Data Results & Data ([facility]) Vital Signs (Past 12 Hours) Vital Signs Temp Pulse Pulse Resp BP Pulse Ox O2 Del Method 06/23/22 15:57 36.3 C L 58 L 18 137/74 93 Room Air 06/23/22 09:16 55 L 96 Room Air 06/23/22 07:38 50 L 06/23/22 07:35 36.5 C 45 L 16 142/52 H 93 Room Air
[2022-06-23] MEDS: MELATONIN 3 MG TAB PO SCH (20:13)
[2022-06-23] MEDS: QUEtiapine FUMARATE 25 MG TABLET PO SCH (20:14)
[2022-06-24] MEDS: HEPARIN SOD 5,000 UNIT/0.5 ML VIAL SQ SCH ×2 (09:18→22:10)
[2022-06-24] MEDS: SENNA 8.6 MG TAB PO SCH (09:18)
[2022-06-24] MEDS: TAMSULOSIN HCL 0.4 MG CAP PO SCH (09:18)
--- NOTE | 2022-06-24 17:02 | Hospitalist Progress Note ---
Date of Service June 24, 2022 Assessment & Plan (1) Agitation due to dementia: Plan: Dementia with mood disturbance ? Agitation secondary to Urinary retention Appreciate psychiatry Input Continue melatonin, quetiapine Zyprexa as needed continue delirium precautions Waiting for placement (2) Urinary retention: (3) UTI (urinary tract infection): Plan: UTI ruled out Urine/Blood Culture negative (4) Urethral stricture: Plan: Urinary retention H/O prostate cancer s/p prostatectomy and urethral stricture Per records, patient previously used to self cath. Hernández Catheter discontinued Continue bladder scan Continue Flomax Monitor DVT Px Heparin SQ Code Status DNR/DNI Admission and Anticipated Discharge Date Admission Date: May 30, 2022 Subjective Patient is seen and examined at bedside States feeling well Denies chest pain, dyspnea, nausea, abd pain Waiting for placement Review of Systems Review of Systems: All systems reviewed & are unremarkable except as noted in Subjective Physical Exam Physical Exam: Physical Exam: Vitals signs as noted above General Appearance:Moderately built and nourished, no apparent distress Head: normocephalic, Atraumatic Eyes: normal inspection, EOMI Neck: supple, Trachea midline Respiratory/Chest: Normal breath sounds, CTA, No accessory muscle use Cardiovascular: S1, S2, No murmur Abdomen/GI:Soft, Non tender, Bowel sounds present Extremities/Musculoskeletal:normal inspection, no edema Neurologic/Psych:AAOX1, grossly no focal neurological deficits, +Hearing impairment Skin: normal color, warm Results & Data Results & Data ([facility]) Vital Signs (Past 12 Hours) Vital Signs Temp Pulse Resp BP Pulse Ox O2 Del Method 06/24/22 14:47 36.6 C 60 16 120/64 95 Room Air 06/24/22 09:00 Room Air 06/24/22 08:00 36.4 C L 71 18 147/74 H 94 Room Air
[2022-06-24] MEDS: QUEtiapine FUMARATE 25 MG TABLET PO SCH (22:10)
[2022-06-24] MEDS: MELATONIN 3 MG TAB PO SCH (22:10)
[2022-06-25] MEDS: SENNA 8.6 MG TAB PO SCH (09:17)
[2022-06-25] MEDS: HEPARIN SOD 5,000 UNIT/0.5 ML VIAL SQ SCH ×2 (09:17→20:48)
[2022-06-25] MEDS: TAMSULOSIN HCL 0.4 MG CAP PO SCH (09:17)
--- NOTE | 2022-06-25 16:52 | Hospitalist Progress Note ---
Date of Service June 25, 2022 Assessment & Plan (1) Agitation due to dementia: Plan: Dementia with mood disturbance ? Agitation secondary to Urinary retention Appreciate psychiatry Input Continue melatonin, quetiapine Zyprexa as needed continue delirium precautions Waiting for placement Stable for discharge (2) Urinary retention: (3) UTI (urinary tract infection): Plan: UTI ruled out Urine/Blood Culture negative (4) Urethral stricture: Plan: Urinary retention H/O prostate cancer s/p prostatectomy and urethral stricture Per records, patient previously used to self cath. Hernández Catheter discontinued Continue bladder scan Continue Flomax Monitor DVT Px Heparin SQ Code Status DNR/DNI Admission and Anticipated Discharge Date Admission Date: May 30, 2022 Subjective Patient is seen and examined at bedside Frustrated about prolonged hospital stay Offers no complaints Waiting for placement Denies chest pain, dyspnea, nausea, abd pain Review of Systems Review of Systems: All systems reviewed & are unremarkable except as noted in Subjective Physical Exam Physical Exam: Physical Exam: Vitals signs as noted above General Appearance:Moderately built and nourished, no apparent distress Head: normocephalic, Atraumatic Eyes: normal inspection, EOMI Neck: supple, Trachea midline Respiratory/Chest: Normal breath sounds, CTA, No accessory muscle use Cardiovascular: S1, S2, No murmur Abdomen/GI:Soft, Non tender, Bowel sounds present Extremities/Musculoskeletal:normal inspection, no edema Neurologic/Psych:AAOX1, grossly no focal neurological deficits, +Hearing impairment Skin: normal color, warm Results & Data Results & Data ([facility]) Vital Signs (Past 12 Hours) Vital Signs Temp Pulse Pulse Resp BP Pulse Ox O2 Del Method 06/25/22 13:58 36.4 C L 55 L 18 105/53 L 95 Room Air 06/25/22 11:04 36.6 C 55 L 16 149/72 H 95 Room Air 06/25/22 09:30 Room Air 06/25/22 08:30 45 L 06/25/22 07:12 36.7 C 52 L 16 107/51 L 93 Room Air
[2022-06-25] MEDS: QUEtiapine FUMARATE 25 MG TABLET PO SCH (20:48)
[2022-06-25] MEDS: MELATONIN 3 MG TAB PO SCH (20:48)
[2022-06-26] MEDS: SENNA 8.6 MG TAB PO SCH (08:59)
[2022-06-26] MEDS: HEPARIN SOD 5,000 UNIT/0.5 ML VIAL SQ SCH ×2 (08:59→20:44)
[2022-06-26] MEDS: TAMSULOSIN HCL 0.4 MG CAP PO SCH (09:00)
--- NOTE | 2022-06-26 16:42 | Hospitalist Progress Note ---
Date of Service June 26, 2022 Assessment & Plan (1) Agitation due to dementia: Plan: Dementia with mood disturbance ? Agitation secondary to Urinary retention Appreciate psychiatry Input Continue melatonin, quetiapine Zyprexa as needed continue delirium precautions Continue current management Waiting for placement (2) Urinary retention: (3) UTI (urinary tract infection): Plan: UTI ruled out Urine/Blood Culture negative (4) Urethral stricture: Plan: Urinary retention H/O prostate cancer s/p prostatectomy and urethral stricture Per records, patient previously used to self cath. Hernández Catheter discontinued Continue bladder scan Continue Flomax Monitor DVT Px Heparin SQ Code Status DNR/DNI Admission and Anticipated Discharge Date Admission Date: May 30, 2022 Subjective Patient is seen and examined at bedside No new complaints Waiting for placement Denies chest pain, dyspnea, nausea, abd pain Lying in bed comfortably Review of Systems Review of Systems: All systems reviewed & are unremarkable except as noted in Subjective Physical Exam Physical Exam: Physical Exam: Vitals signs as noted above General Appearance:Moderately built and nourished, no apparent distress Head: normocephalic, Atraumatic Eyes: normal inspection, EOMI Neck: supple, Trachea midline Respiratory/Chest: Normal breath sounds, CTA, No accessory muscle use Cardiovascular: S1, S2, No murmur Abdomen/GI:Soft, Non tender, Bowel sounds present Extremities/Musculoskeletal:normal inspection, no edema Neurologic/Psych:AAOX1, grossly no focal neurological deficits, +Hearing impairment Skin: normal color, warm Results & Data Results & Data ([facility]) Vital Signs (Past 12 Hours) Vital Signs Temp Pulse Resp BP Pulse Ox O2 Del Method 06/26/22 14:16 36.7 C 51 L 18 131/72 94 Room Air 06/26/22 09:02 Room Air 06/26/22 07:21 36.4 C L 41 L 18 134/61 95 Room Air
[2022-06-26] MEDS: QUEtiapine FUMARATE 25 MG TABLET PO SCH (20:43)
[2022-06-26] MEDS: MELATONIN 3 MG TAB PO SCH (20:43)
[2022-06-27] MEDS: SENNA 8.6 MG TAB PO SCH (10:10)
[2022-06-27] MEDS: TAMSULOSIN HCL 0.4 MG CAP PO SCH (10:10)
[2022-06-27] MEDS: HEPARIN SOD 5,000 UNIT/0.5 ML VIAL SQ SCH ×2 (10:11→20:34)
--- NOTE | 2022-06-27 12:03 | Electrocardiogram Report ---
Test Reason : Blood Pressure : / mmHG Vent. Rate : 047 BPM Atrial Rate : 047 BPM P-R Int : 168 ms QRS Dur : 084 ms QT Int : 448 ms P-R-T Axes : 045 -11 043 degrees QTc Int : 396 ms Sinus bradycardia with occasional Premature atrial complexes Otherwise normal ECG When compared with ECG of 30-MAY-2022 14:18, Vent. rate has decreased BY 49 BPM QT has shortened Confirmed by Julio Blank ([id number]) on 06/27/2022 12:03:29 PM Referred By: REFERRED SELF Confirmed By:Julio Blank
--- NOTE | 2022-06-27 17:55 | Hospitalist Progress Note ---
Date of Service June 27, 2022 Assessment & Plan (1) Agitation due to dementia: Plan: Dementia with mood disturbance ? Agitation secondary to Urinary retention Appreciate psychiatry Input Continue melatonin, quetiapine Zyprexa as needed continue delirium precautions Continue current management Waiting for placement Sinus bradycardia EKG suggestive of sinus bradycardia with occasional PACs Asymptomatic Monitor (2) Urinary retention: (3) UTI (urinary tract infection): Plan: UTI ruled out Urine/Blood Culture negative (4) Urethral stricture: Plan: Urinary retention H/O prostate cancer s/p prostatectomy and urethral stricture Per records, patient previously used to self cath. Hernández Catheter discontinued Continue bladder scan Continue Flomax Monitor DVT Px Heparin SQ Code Status DNR/DNI Admission and Anticipated Discharge Date Admission Date: May 30, 2022 Subjective Patient is seen and examined at bedside Waiting for placement Denies chest pain, dyspnea, nausea, abd pain Lying in bed comfortably Bradycardic, asymptomatic Review of Systems Review of Systems: All systems reviewed & are unremarkable except as noted in Subjective Physical Exam Physical Exam: Physical Exam: Vitals signs as noted above General Appearance:Moderately built and nourished, no apparent distress Head: normocephalic, Atraumatic Eyes: normal inspection, EOMI Neck: supple, Trachea midline Respiratory/Chest: Normal breath sounds, CTA, No accessory muscle use Cardiovascular: S1, S2, No murmur Abdomen/GI:Soft, Non tender, Bowel sounds present Extremities/Musculoskeletal:normal inspection, no edema Neurologic/Psych:AAOX1, grossly no focal neurological deficits, +Hearing impairment Skin: normal color, warm Results & Data Results & Data ([facility]) Vital Signs (Past 12 Hours) Vital Signs Temp Pulse Resp BP Pulse Ox O2 Del Method 06/27/22 15:07 36.6 C 48 L 16 142/58 H 93 Room Air 06/27/22 10:10 Room Air 06/27/22 07:52 36.4 C L 42 L 16 129/57 L 93 Room Air
[2022-06-27] MEDS: MELATONIN 3 MG TAB PO SCH (20:33)
[2022-06-27] MEDS: QUEtiapine FUMARATE 25 MG TABLET PO SCH (20:33)
[2022-06-28] MEDS: TAMSULOSIN HCL 0.4 MG CAP PO SCH (08:55)
[2022-06-28] MEDS: SENNA 8.6 MG TAB PO SCH (08:55)
[2022-06-28] MEDS: HEPARIN SOD 5,000 UNIT/0.5 ML VIAL SQ SCH ×2 (08:55→20:27)
[2022-06-28 08:59] LABS: Creatinine Clr Calc Pharmacy 31.6 ml/min; Est GFR (African American) 61.1 ml/min; Est GFR (Non-African American) 52.8 ml/min; Magnesium 2.2 mg/dl (1.7-2.4); Potassium 4.2 mmol/L (3.5-5.1)
--- NOTE | 2022-06-28 14:17 | Hospitalist Progress Note ---
Date of Service June 28, 2022 Assessment & Plan (1) Agitation due to dementia: Plan: Dementia with mood disturbance ? Agitation secondary to Urinary retention Appreciate psychiatry Input Continue melatonin, quetiapine Zyprexa as needed continue delirium precautions Continue current management Waiting for placement Sinus bradycardia EKG suggestive of sinus bradycardia with occasional PACs Asymptomatic Monitor (2) Urinary retention: (3) UTI (urinary tract infection): Plan: UTI ruled out Urine/Blood Culture negative (4) Urethral stricture: Plan: Urinary retention H/O prostate cancer s/p prostatectomy and urethral stricture Per records, patient previously used to self cath. Hernández Catheter discontinued Continue bladder scan Continue Flomax Monitor DVT Px: Heparin SQ Code Status : DNR/DNI Admission and Anticipated Discharge Date Admission Date: May 30, 2022 Subjective Patient seen and examined at bedside as a follow-up of agitation due to dementia. Patient was lying in bed, on room air, NAD, no new issues per patient, denies any pain or discomfort, denies any chest pain or abdominal pain. Physical Exam Physical Exam: GENERAL: Alert and awake. NAD, on RA. [place]. HEENT: No pallor, no icterus. Pupils equal, round and reactive to light. Oral mucosa moist. NECK: No JVD, no neck masses. HEART: S1 and S2 heard. Regular rate and rhythm. No murmur, no gallop. RESPIRATORY SYSTEM: Normal AP diameter. No accessory muscle use. No wheezing, no crackles. ABDOMEN: Soft, bowel sounds present, nontender, no distention. CENTRAL NERVOUS SYSTEM: No facial droop. Speech is clear. Obeys simple commands. Moves extremities. EXTREMITIES: No edema, no erythema seen. Results & Data Results & Data ([facility]) Vital Signs (Past 12 Hours) Vital Signs Temp Pulse Resp BP Pulse Ox O2 Del Method 06/28/22 10:15 37.1 C 63 16 122/54 L 94 Room Air 06/28/22 08:53 36.7 C 47 L 16 136/69 93 Room Air 06/28/22 07:36 36.5 C 47 L 16 134/72 93 Room Air
[2022-06-28] MEDS: QUEtiapine FUMARATE 25 MG TABLET PO SCH (20:28)
[2022-06-28] MEDS: MELATONIN 3 MG TAB PO SCH (20:28)
[2022-06-29] MEDS: SENNA 8.6 MG TAB PO SCH (08:40)
[2022-06-29] MEDS: HEPARIN SOD 5,000 UNIT/0.5 ML VIAL SQ SCH ×2 (08:40→20:18)
[2022-06-29] MEDS: TAMSULOSIN HCL 0.4 MG CAP PO SCH (08:40)
--- NOTE | 2022-06-29 13:23 | Hospitalist Progress Note ---
Date of Service June 29, 2022 Assessment & Plan (1) Agitation due to dementia: Plan: Dementia with mood disturbance ? Agitation secondary to Urinary retention Appreciate psychiatry Input Continue melatonin, quetiapine Zyprexa as needed continue delirium precautions Continue current management Waiting for placement Sinus bradycardia EKG suggestive of sinus bradycardia with occasional PACs Asymptomatic Monitor (2) Urinary retention: (3) UTI (urinary tract infection): Plan: UTI ruled out Urine/Blood Culture negative (4) Urethral stricture: Plan: Urinary retention H/O prostate cancer s/p prostatectomy and urethral stricture Per records, patient previously used to self cath. Hernández Catheter discontinued Continue bladder scan Continue Flomax Monitor DVT Px: Heparin SQ Code Status : DNR/DNI Admission and Anticipated Discharge Date Admission Date: May 30, 2022 Subjective Patient seen and examined at bedside as a follow-up of agitation due to dementia. Patient was lying in bed, on room air, NAD, no new issues per patient, denies any pain or discomfort, denies any chest pain or abdominal pain. Physical Exam Physical Exam: GENERAL: Alert and awake. NAD, on RA. [place]. HEENT: No pallor, no icterus. Pupils equal, round and reactive to light. Oral mucosa moist. NECK: No JVD, no neck masses. HEART: S1 and S2 heard. Regular rate and rhythm. No murmur, no gallop. RESPIRATORY SYSTEM: Normal AP diameter. No accessory muscle use. No wheezing, no crackles. ABDOMEN: Soft, bowel sounds present, nontender, no distention. CENTRAL NERVOUS SYSTEM: No facial droop. Speech is clear. Obeys simple commands. Moves extremities. EXTREMITIES: No edema, no erythema seen. Results & Data Results & Data ([facility]) Vital Signs (Past 12 Hours) Vital Signs Temp Pulse Resp BP Pulse Ox O2 Del Method 06/29/22 08:36 36.2 C L 53 L 16 130/60 94 Room Air
[2022-06-29] MEDS: QUEtiapine FUMARATE 25 MG TABLET PO SCH (20:19)
[2022-06-29] MEDS: MELATONIN 3 MG TAB PO SCH (20:19)
[2022-06-30] MEDS: TAMSULOSIN HCL 0.4 MG CAP PO SCH (08:29)
[2022-06-30] MEDS: SENNA 8.6 MG TAB PO SCH (08:30)
[2022-06-30] MEDS: HEPARIN SOD 5,000 UNIT/0.5 ML VIAL SQ SCH ×2 (08:31→19:59)
--- NOTE | 2022-06-30 15:39 | Hospitalist Progress Note ---
Date of Service June 30, 2022 Assessment & Plan (1) Agitation due to dementia: Plan: Dementia with mood disturbance ? Agitation secondary to Urinary retention Appreciate psychiatry Input Continue melatonin, quetiapine Zyprexa as needed continue delirium precautions Continue current management Waiting for placement Sinus bradycardia EKG suggestive of sinus bradycardia with occasional PACs Asymptomatic Monitor (2) Urinary retention: (3) UTI (urinary tract infection): Plan: UTI ruled out Urine/Blood Culture negative (4) Urethral stricture: Plan: Urinary retention H/O prostate cancer s/p prostatectomy and urethral stricture Per records, patient previously used to self cath. Hernández Catheter discontinued Continue bladder scan Continue Flomax Monitor DVT Px: Heparin SQ Code Status : DNR/DNI Admission and Anticipated Discharge Date Admission Date: May 30, 2022 Subjective Patient seen and examined at bedside as a follow-up of agitation due to dementia. Patient was lying in bed, on room air, NAD, no new issues per patient, denies any pain or discomfort, denies any chest pain or abdominal pain. Physical Exam Physical Exam: GENERAL: Alert and awake. NAD, on RA. [place]. HEENT: No pallor, no icterus. Pupils equal, round and reactive to light. Oral mucosa moist. NECK: No JVD, no neck masses. HEART: S1 and S2 heard. Regular rate and rhythm. No murmur, no gallop. RESPIRATORY SYSTEM: Normal AP diameter. No accessory muscle use. No wheezing, no crackles. ABDOMEN: Soft, bowel sounds present, nontender, no distention. CENTRAL NERVOUS SYSTEM: No facial droop. Speech is clear. Obeys simple commands. Moves extremities. EXTREMITIES: No edema, no erythema seen. Results & Data Results & Data ([facility]) Vital Signs (Past 12 Hours) Vital Signs Temp Pulse Resp BP Pulse Ox O2 Del Method 06/30/22 14:37 37.3 C 61 18 147/56 H 93 Room Air 06/30/22 07:06 36.9 C 54 L 16 121/59 L 94 Room Air
[2022-06-30] MEDS: MELATONIN 3 MG TAB PO SCH (19:59)
[2022-06-30] MEDS: QUEtiapine FUMARATE 25 MG TABLET PO SCH (19:59)
[2022-07-01] MEDS: TAMSULOSIN HCL 0.4 MG CAP PO SCH (08:12)
[2022-07-01] MEDS: SENNA 8.6 MG TAB PO SCH ×2 (08:12→08:13)
[2022-07-01] MEDS: HEPARIN SOD 5,000 UNIT/0.5 ML VIAL SQ SCH ×2 (08:12→21:07)
[2022-07-01] MEDS: ACETAMINOPHEN 325 MG TAB PO PRN (11:04)
--- NOTE | 2022-07-01 16:32 | Hospitalist Progress Note ---
Date of Service July 01, 2022 Assessment & Plan (1) Agitation due to dementia: Plan: Dementia with mood disturbance ? Agitation secondary to Urinary retention Appreciate psychiatry Input Continue melatonin, quetiapine Zyprexa as needed continue delirium precautions Continue current management Waiting for placement Sinus bradycardia EKG suggestive of sinus bradycardia with occasional PACs Asymptomatic Monitor (2) Urinary retention: (3) UTI (urinary tract infection): Plan: UTI ruled out Urine/Blood Culture negative (4) Urethral stricture: Plan: Urinary retention H/O prostate cancer s/p prostatectomy and urethral stricture Per records, patient previously used to self cath. Hernández Catheter discontinued Continue bladder scan Continue Flomax Monitor DVT Px: Heparin SQ Code Status : DNR/DNI Admission and Anticipated Discharge Date Admission Date: May 30, 2022 Subjective Patient seen and examined at bedside as a follow-up of agitation due to dementia. Patient was lying in bed, on room air, NAD, no new issues per patient, denies any pain or discomfort, denies any chest pain or abdominal pain. Physical Exam Physical Exam: GENERAL: Alert and awake. NAD, on RA. [place]. HEENT: No pallor, no icterus. Pupils equal, round and reactive to light. Oral mucosa moist. NECK: No JVD, no neck masses. HEART: S1 and S2 heard. Regular rate and rhythm. No murmur, no gallop. RESPIRATORY SYSTEM: Normal AP diameter. No accessory muscle use. No wheezing, no crackles. ABDOMEN: Soft, bowel sounds present, nontender, no distention. CENTRAL NERVOUS SYSTEM: No facial droop. Speech is clear. Obeys simple commands. Moves extremities. EXTREMITIES: No edema, no erythema seen. Results & Data Results & Data ([facility]) Vital Signs (Past 12 Hours) Vital Signs Temp Pulse Resp BP Pulse Ox O2 Del Method 07/01/22 15:09 36.5 C 56 L 17 146/57 H 94 Room Air 07/01/22 07:21 36.5 C 46 L 17 143/72 H 93 Room Air
[2022-07-01] MEDS: MELATONIN 3 MG TAB PO SCH (21:07)
[2022-07-01] MEDS: QUEtiapine FUMARATE 25 MG TABLET PO SCH (21:07)
[2022-07-02] MEDS: HEPARIN SOD 5,000 UNIT/0.5 ML VIAL SQ SCH ×2 (08:32→20:14)
[2022-07-02] MEDS: SENNA 8.6 MG TAB PO SCH (08:32)
[2022-07-02] MEDS: TAMSULOSIN HCL 0.4 MG CAP PO SCH (08:32)
--- NOTE | 2022-07-02 15:52 | Hospitalist Progress Note ---
Date of Service July 02, 2022 Assessment & Plan (1) Agitation due to dementia: Plan: Dementia with mood disturbance ? Agitation secondary to Urinary retention Appreciate psychiatry Input Continue melatonin, quetiapine Zyprexa as needed continue delirium precautions Continue current management Waiting for placement Sinus bradycardia EKG suggestive of sinus bradycardia with occasional PACs Asymptomatic Monitor (2) Urinary retention: (3) UTI (urinary tract infection): Plan: UTI ruled out Urine/Blood Culture negative (4) Urethral stricture: Plan: Urinary retention H/O prostate cancer s/p prostatectomy and urethral stricture Per records, patient previously used to self cath. Hernández Catheter discontinued Continue bladder scan Continue Flomax Monitor DVT Px: Heparin SQ Code Status : DNR/DNI Admission and Anticipated Discharge Date Admission Date: May 30, 2022 Subjective Patient seen and examined at bedside as a follow-up of agitation due to dementia. Patient was lying in bed, on room air, NAD, no new issues per patient, denies any pain or discomfort, denies any chest pain or abdominal pain. complains of pain at lovenox injection site, no tenderness on exam though, no erythema and swelling noted. Physical Exam Physical Exam: GENERAL: Alert and awake. NAD, on RA. [place]. HEENT: No pallor, no icterus. Pupils equal, round and reactive to light. Oral mucosa moist. NECK: No JVD, no neck masses. HEART: S1 and S2 heard. Regular rate and rhythm. No murmur, no gallop. RESPIRATORY SYSTEM: Normal AP diameter. No accessory muscle use. No wheezing, no crackles. ABDOMEN: Soft, bowel sounds present, nontender, no distention. CENTRAL NERVOUS SYSTEM: No facial droop. Speech is clear. Obeys simple commands. Moves extremities. EXTREMITIES: No edema, no erythema seen. Results & Data Results & Data ([facility]) Vital Signs (Past 12 Hours) Vital Signs Temp Pulse Resp BP Pulse Ox O2 Del Method 07/02/22 14:07 36.6 C 50 L 17 144/67 H 94 Room Air 07/02/22 07:06 36.6 C 54 L 17 159/68 H 95 Room Air
[2022-07-02] MEDS: MELATONIN 3 MG TAB PO SCH (20:15)
[2022-07-02] MEDS: QUEtiapine FUMARATE 25 MG TABLET PO SCH (20:15)
[2022-07-03] MEDS: HEPARIN SOD 5,000 UNIT/0.5 ML VIAL SQ SCH ×2 (07:59→19:56)
[2022-07-03] MEDS: SENNA 8.6 MG TAB PO SCH (08:00)
[2022-07-03] MEDS: TAMSULOSIN HCL 0.4 MG CAP PO SCH (08:00)
--- NOTE | 2022-07-03 15:56 | Hospitalist Progress Note ---
Date of Service July 03, 2022 Assessment & Plan (1) Agitation due to dementia: Plan: Dementia with mood disturbance ? Agitation secondary to Urinary retention Appreciate psychiatry Input Continue melatonin, quetiapine Zyprexa as needed continue delirium precautions Continue current management Waiting for placement Sinus bradycardia EKG suggestive of sinus bradycardia with occasional PACs Asymptomatic Monitor (2) Urinary retention: (3) UTI (urinary tract infection): Plan: UTI ruled out Urine/Blood Culture negative (4) Urethral stricture: Plan: Urinary retention H/O prostate cancer s/p prostatectomy and urethral stricture Per records, patient previously used to self cath. Hernández Catheter discontinued Continue bladder scan Continue Flomax Monitor DVT Px: Heparin SQ Code Status : DNR/DNI Admission and Anticipated Discharge Date Admission Date: May 30, 2022 Subjective Patient seen and examined at bedside as a follow-up of agitation due to dementia. Patient was lying in bed, on room air, NAD, no new issues per patient, denies any pain or discomfort, denies any chest pain or abdominal pain. complains of pain at anticoagulation injection site improving, no tenderness on exam though, no erythema and swelling noted. Physical Exam Physical Exam: GENERAL: Alert and awake. NAD, on RA. [place]. HEENT: No pallor, no icterus. Pupils equal, round and reactive to light. Oral mucosa moist. NECK: No JVD, no neck masses. HEART: S1 and S2 heard. Regular rate and rhythm. No murmur, no gallop. RESPIRATORY SYSTEM: Normal AP diameter. No accessory muscle use. No wheezing, no crackles. ABDOMEN: Soft, bowel sounds present, nontender, no distention. CENTRAL NERVOUS SYSTEM: No facial droop. Speech is clear. Obeys simple commands. Moves extremities. EXTREMITIES: No edema, no erythema seen. Results & Data Results & Data ([facility]) Vital Signs (Past 12 Hours) Vital Signs Temp Pulse Resp BP Pulse Ox O2 Del Method 07/03/22 15:40 36.8 C 61 17 120/57 L 94 Room Air 07/03/22 07:19 36.7 C 61 17 150/71 H 94 Room Air
[2022-07-03] MEDS: QUEtiapine FUMARATE 25 MG TABLET PO SCH (20:14)
[2022-07-03] MEDS: MELATONIN 3 MG TAB PO SCH (20:14)
[2022-07-04] MEDS: SENNA 8.6 MG TAB PO SCH (07:22)
[2022-07-04] MEDS: HEPARIN SOD 5,000 UNIT/0.5 ML VIAL SQ SCH ×2 (07:22→20:07)
[2022-07-04] MEDS: TAMSULOSIN HCL 0.4 MG CAP PO SCH (07:22)
--- NOTE | 2022-07-04 16:18 | Hospitalist Progress Note ---
Date of Service July 04, 2022 Assessment & Plan (1) Agitation due to dementia: Plan: Dementia with mood disturbance ? Agitation secondary to Urinary retention Appreciate psychiatry Input Continue melatonin, quetiapine Zyprexa as needed continue delirium precautions Continue current management Waiting for placement Sinus bradycardia EKG suggestive of sinus bradycardia with occasional PACs Asymptomatic Monitor (2) Urinary retention: (3) UTI (urinary tract infection): Plan: UTI ruled out Urine/Blood Culture negative (4) Urethral stricture: Plan: Urinary retention H/O prostate cancer s/p prostatectomy and urethral stricture Per records, patient previously used to self cath. Hernández Catheter discontinued Continue bladder scan Continue Flomax Monitor DVT Px: Heparin SQ Code Status : DNR/DNI Admission and Anticipated Discharge Date Admission Date: May 30, 2022 Subjective Patient seen and examined at bedside as a follow-up of agitation due to dementia. Patient was lying in bed, on room air, NAD, no new issues per patient, denies any pain or discomfort, denies any chest pain or abdominal pain. complains of pain at anticoagulation injection site now minimal, no tenderness on exam though, no erythema and swelling noted. Pt's sister updated at bedside. Physical Exam Physical Exam: GENERAL: Alert and awake. NAD, on RA. [place]. HEENT: No pallor, no icterus. Pupils equal, round and reactive to light. Oral mucosa moist. NECK: No JVD, no neck masses. HEART: S1 and S2 heard. Regular rate and rhythm. No murmur, no gallop. RESPIRATORY SYSTEM: Normal AP diameter. No accessory muscle use. No wheezing, no crackles. ABDOMEN: Soft, bowel sounds present, nontender, no distention. CENTRAL NERVOUS SYSTEM: No facial droop. Speech is clear. Obeys simple commands. Moves extremities. EXTREMITIES: No edema, no erythema seen. Results & Data Results & Data ([facility]) Vital Signs (Past 12 Hours) Vital Signs Temp Pulse Resp BP Pulse Ox O2 Del Method 07/04/22 15:49 36.8 C 55 L 16 143/70 H 94 Room Air 07/04/22 07:54 36.5 C 54 L 16 155/72 H 94 Room Air
[2022-07-04] MEDS: QUEtiapine FUMARATE 25 MG TABLET PO SCH (20:08)
[2022-07-04] MEDS: MELATONIN 3 MG TAB PO SCH (20:08)
[2022-07-05] MEDS: TAMSULOSIN HCL 0.4 MG CAP PO SCH (10:29)
[2022-07-05] MEDS: HEPARIN SOD 5,000 UNIT/0.5 ML VIAL SQ SCH ×2 (10:29→20:27)
[2022-07-05] MEDS: SENNA 8.6 MG TAB PO SCH (10:29)
--- NOTE | 2022-07-05 17:03 | Hospitalist Progress Note ---
Date of Service July 05, 2022 Assessment & Plan (1) Agitation due to dementia: Plan: Dementia with mood disturbance ? Agitation secondary to Urinary retention Appreciate psychiatry Input Continue melatonin, quetiapine Zyprexa as needed continue delirium precautions Continue current management Waiting for placement Sinus bradycardia EKG suggestive of sinus bradycardia with occasional PACs Asymptomatic Monitor (2) Urinary retention: (3) UTI (urinary tract infection): Plan: UTI ruled out Urine/Blood Culture negative (4) Urethral stricture: Plan: Urinary retention H/O prostate cancer s/p prostatectomy and urethral stricture Per records, patient previously used to self cath. Hernández Catheter discontinued Continue bladder scan Continue Flomax Monitor DVT Px: Heparin SQ Code Status : DNR/DNI Admission and Anticipated Discharge Date Admission Date: May 30, 2022 Subjective Patient seen and examined at bedside as a follow-up of agitation due to dementia. Patient was lying in bed, on room air, NAD, no new issues per patient, denies any pain or discomfort, denies any chest pain or abdominal pain. Physical Exam Physical Exam: GENERAL: Alert and awake. NAD, on RA. [place]. HEENT: No pallor, no icterus. Pupils equal, round and reactive to light. Oral mucosa moist. NECK: No JVD, no neck masses. HEART: S1 and S2 heard. Regular rate and rhythm. No murmur, no gallop. RESPIRATORY SYSTEM: Normal AP diameter. No accessory muscle use. No wheezing, no crackles. ABDOMEN: Soft, bowel sounds present, nontender, no distention. CENTRAL NERVOUS SYSTEM: No facial droop. Speech is clear. Obeys simple commands. Moves extremities. EXTREMITIES: No edema, no erythema seen. Results & Data Results & Data ([facility]) Vital Signs (Past 12 Hours) Vital Signs Temp Pulse Resp BP Pulse Ox O2 Del Method 07/05/22 15:26 36.8 C 60 16 149/75 H 93 Room Air 07/05/22 07:51 36.6 C 44 L 16 143/58 H 94 Room Air
[2022-07-05] MEDS: QUEtiapine FUMARATE 25 MG TABLET PO SCH (20:27)
[2022-07-05] MEDS: MELATONIN 3 MG TAB PO SCH (20:27)
[2022-07-06] MEDS: SENNA 8.6 MG TAB PO SCH (09:07)
[2022-07-06] MEDS: TAMSULOSIN HCL 0.4 MG CAP PO SCH (09:07)
[2022-07-06] MEDS: HEPARIN SOD 5,000 UNIT/0.5 ML VIAL SQ SCH ×2 (09:07→20:38)
--- NOTE | 2022-07-06 15:50 | Hospitalist Progress Note ---
Date of Service July 06, 2022 Assessment & Plan (1) Agitation due to dementia: Plan: Dementia with mood disturbance ? Agitation secondary to Urinary retention Appreciate psychiatry Input Continue melatonin, quetiapine Zyprexa as needed continue delirium precautions Continue current management Waiting for placement Sinus bradycardia EKG suggestive of sinus bradycardia with occasional PACs Asymptomatic Monitor (2) Urinary retention: (3) UTI (urinary tract infection): Plan: UTI ruled out Urine/Blood Culture negative (4) Urethral stricture: Plan: Urinary retention H/O prostate cancer s/p prostatectomy and urethral stricture Per records, patient previously used to self cath. Hernández Catheter discontinued Continue bladder scan Continue Flomax Monitor DVT Px: Heparin SQ Code Status : DNR/DNI Admission and Anticipated Discharge Date Admission Date: May 30, 2022 Subjective Patient seen and examined at bedside as a follow-up of agitation due to dementia. Patient was lying in bed, on room air, NAD, no new issues per patient, denies any pain or discomfort, denies any chest pain or abdominal pain. Physical Exam Physical Exam: GENERAL: Alert and awake. NAD, on RA. [place]. HEENT: No pallor, no icterus. Pupils equal, round and reactive to light. Oral mucosa moist. NECK: No JVD, no neck masses. HEART: S1 and S2 heard. Regular rate and rhythm. No murmur, no gallop. RESPIRATORY SYSTEM: Normal AP diameter. No accessory muscle use. No wheezing, no crackles. ABDOMEN: Soft, bowel sounds present, nontender, no distention. CENTRAL NERVOUS SYSTEM: No facial droop. Speech is clear. Obeys simple commands. Moves extremities. EXTREMITIES: No edema, no erythema seen. Results & Data Results & Data ([facility]) Vital Signs (Past 12 Hours) Vital Signs Temp Pulse Resp BP Pulse Ox O2 Del Method 07/06/22 15:33 36.6 C 73 16 130/68 96 Room Air 07/06/22 09:20 36.5 C 65 18 147/74 H 94 Room Air
[2022-07-06] MEDS: QUEtiapine FUMARATE 25 MG TABLET PO SCH (20:39)
[2022-07-06] MEDS: MELATONIN 3 MG TAB PO SCH (20:39)
[2022-07-07] MEDS: TAMSULOSIN HCL 0.4 MG CAP PO SCH (08:10)
[2022-07-07] MEDS: SENNA 8.6 MG TAB PO SCH (08:10)
[2022-07-07] MEDS: HEPARIN SOD 5,000 UNIT/0.5 ML VIAL SQ SCH ×2 (08:51→20:37)
--- NOTE | 2022-07-07 15:19 | Hospitalist Progress Note ---
Date of Service July 07, 2022 Assessment & Plan (1) Agitation due to dementia: Plan: Dementia with mood disturbance ? Agitation secondary to Urinary retention Agitation now resolved Appreciate psychiatry Input Patient currently maintained on melatonin, quetiapine. Delirium precautions Awaiting placement Sinus bradycardia EKG suggestive of sinus bradycardia with occasional PACs Asymptomatic (2) UTI (urinary tract infection): Plan: UTI ruled out Urine/Blood Culture negative (3) Urinary retention: (4) Urethral stricture: Plan: H/O prostate cancer s/p prostatectomy and urethral stricture Per records, patient previously used to self cath. Hernández Catheter discontinued, patient voiding without difficulty Continue Flomax DVT PROPHYLAXIS SQ heparin Dispo - awaiting placement, case management following Admission and Anticipated Discharge Date Admission Date: May 30, 2022 Supervising Physician Co-Signing Physician Notes Attending addendum: The patient was seen and examined in medical floor He has dementia and wants to go home Not been aggressive On examination Lying in bed and trying to maneuver the coverings Not in any acute distress Hemodynamically stable Chestclear to auscultate bilaterally HeartS1-S2, regular Abdomenbenign His labs, imaging studies and medications reviewed Has dementia with acute confusion Has been waiting to be placed Agree with assessment and plan as outlined above by Sara Hook Subjective Follow-up for agitation in the setting of dementia, agitation now resolved. Patient seen and examined. Offers no complaints. Eager to be discharged. Review of Systems Review of Systems: ROS per HPI, all other systems reviewed and negative Physical Exam Constitutional: WD/WN, vitals as above Respiratory: normal respiratory effort, lungs clear to auscultation Cardiovascular: Rate/Rhythm: regular rate and regular rhythm Vessels: normal peripheral pulses Extremities: no edema Skin: no rashes, warm and dry Neurologic: no focal motor deficits Psychiatric: A+Ox3, euthymic affect Insight: + limited insight Results & Data Results & Data ([facility]) Vital Signs (Past 12 Hours) Vital Signs Temp Pulse Resp BP Pulse Ox O2 Del Method 07/07/22 08:57 36.4 C L 61 17 135/63 93 Room Air
[2022-07-07] MEDS: MELATONIN 3 MG TAB PO SCH (20:37)
[2022-07-07] MEDS: QUEtiapine FUMARATE 25 MG TABLET PO SCH (20:37)
[2022-07-08] MEDS: HEPARIN SOD 5,000 UNIT/0.5 ML VIAL SQ SCH ×2 (09:20→19:58)
[2022-07-08] MEDS: SENNA 8.6 MG TAB PO SCH (09:23)
[2022-07-08] MEDS: TAMSULOSIN HCL 0.4 MG CAP PO SCH (09:23)
--- NOTE | 2022-07-08 13:59 | Hospitalist Progress Note ---
Date of Service July 08, 2022 Assessment & Plan (1) Agitation due to dementia: Plan: Dementia with mood disturbance ? Agitation secondary to Urinary retention Agitation now resolved Appreciate psychiatry Input Patient currently maintained on melatonin, quetiapine. Delirium precautions Awaiting placement Sinus bradycardia EKG suggestive of sinus bradycardia with occasional PACs Asymptomatic (2) UTI (urinary tract infection): Plan: UTI ruled out Urine/Blood Culture negative (3) Urinary retention: (4) Urethral stricture: Plan: H/O prostate cancer s/p prostatectomy and urethral stricture Per records, patient previously used to self cath. Hernández Catheter discontinued, patient voiding without difficulty Continue Flomax DVT PROPHYLAXIS SQ heparin Dispo - awaiting placement, case management following Admission and Anticipated Discharge Date Admission Date: May 30, 2022 Supervising Physician Co-Signing Physician Notes 07/08/2022 The patient was seen and examined in medical floor He has profound dementia and not in any distress during my examination He wants to go home Not been aggressive On examination Lying in bed comfortably Hemodynamically stable with bradycardia around 45 Chest-clear to auscultate bilateral Heart-S1, S2. Regular Abdomen-benign Extremities-negative for any edema His labs and medications reviewed Has profound dementia waiting to be placed Agree with assessment and plan as outlined above by Sara Hook Subjective Follow-up for agitation in the setting of dementia, agitation now resolved. Patient seen and examined. Sitting up in the chair having breakfast. Offers no complaints. Review of Systems Review of Systems: ROS per HPI, all other systems reviewed and negative Physical Exam Constitutional: WD/WN, vitals as above no acute distress Respiratory: normal respiratory effort, lungs clear to auscultation Cardiovascular: Rate/Rhythm: regular rate and regular rhythm Vessels: normal peripheral pulses Extremities: no edema Skin: no rashes, warm and dry Neurologic: no focal motor deficits Psychiatric: A+Ox3, euthymic affect Insight: + limited insight Results & Data Results & Data ([facility]) Vital Signs (Past 12 Hours) Vital Signs Temp Pulse Resp BP Pulse Ox O2 Del Method 07/08/22 08:47 Room Air 07/08/22 07:30 36.6 C 45 L 16 159/81 H 95 Room Air
[2022-07-08] MEDS: QUEtiapine FUMARATE 25 MG TABLET PO SCH (19:58)
[2022-07-08] MEDS: MELATONIN 3 MG TAB PO SCH (19:58)
[2022-07-09] MEDS: HEPARIN SOD 5,000 UNIT/0.5 ML VIAL SQ SCH ×2 (09:29→21:05)
[2022-07-09] MEDS: SENNA 8.6 MG TAB PO SCH (09:33)
[2022-07-09] MEDS: TAMSULOSIN HCL 0.4 MG CAP PO SCH (09:33)
--- NOTE | 2022-07-09 15:42 | Hospitalist Progress Note ---
Date of Service July 09, 2022 Assessment & Plan (1) Agitation due to dementia: Plan: Dementia with mood disturbance ? Agitation secondary to Urinary retention Agitation now resolved Appreciate psychiatry Input Patient currently maintained on melatonin, quetiapine. Delirium precautions Awaiting placement Sinus bradycardia EKG suggestive of sinus bradycardia with occasional PACs Asymptomatic (2) UTI (urinary tract infection): Plan: UTI ruled out Urine/Blood Culture negative (3) Urinary retention: (4) Urethral stricture: Plan: H/O prostate cancer s/p prostatectomy and urethral stricture Per records, patient previously used to self cath. Hernández Catheter discontinued, patient voiding without difficulty Continue Flomax DVT PROPHYLAXIS SQ heparin Dispo - awaiting placement, case management following Admission and Anticipated Discharge Date Admission Date: May 30, 2022 Supervising Physician Co-Signing Physician Notes Attending addendum: The patient was seen and examined in medical floor He remains stable and has been awaiting placement Denies any symptoms and wants to go home On examination Hemodynamically stable No apparent distress Chest clear to auscultate bilaterally, heart S1-S2 no murmur Abdomen-benign Extremities-negative His labs and medications reviewed Has profound dementia and awaiting placement Agree with assessment plan as outlined above by Sara eaton Subjective Follow-up for agitation in the setting of dementia, agitation now resolved. Patient seen and examined. Sitting up in the chair having breakfast. Offers no complaints. Asking when he can be discharged. Physical Exam Constitutional: WD/WN, vitals as above no acute distress Respiratory: normal respiratory effort, lungs clear to auscultation Cardiovascular: Rate/Rhythm: regular rate and regular rhythm Skin: no rashes, warm and dry Neurologic: no focal motor deficits Psychiatric: A+Ox3, euthymic affect Results & Data Results & Data ([facility]) Vital Signs (Past 12 Hours) Vital Signs Temp Pulse Resp BP Pulse Ox O2 Del Method 07/09/22 08:40 36.5 C 66 16 144/69 H 94 Room Air 07/09/22 08:22 Room Air
[2022-07-09] MEDS: MELATONIN 3 MG TAB PO SCH (21:05)
[2022-07-09] MEDS: QUEtiapine FUMARATE 25 MG TABLET PO SCH (21:05)
[2022-07-10] MEDS: HEPARIN SOD 5,000 UNIT/0.5 ML VIAL SQ SCH ×2 (09:25→20:26)
[2022-07-10] MEDS: SENNA 8.6 MG TAB PO SCH (09:27)
[2022-07-10] MEDS: TAMSULOSIN HCL 0.4 MG CAP PO SCH (09:28)
--- NOTE | 2022-07-10 14:45 | Hospitalist Progress Note ---
Date of Service July 10, 2022 Assessment & Plan (1) Agitation due to dementia: Plan: History ofDementia with mood disturbance ? Agitation secondary to Urinary retention Agitation now resolved Appreciate psychiatry Input Patient currently maintained on melatonin, quetiapine. Delirium precautions Pleasantly confused without any acute delirium dementia Sinus bradycardia EKG suggestive of sinus bradycardia with occasional PACs Asymptomatic (2) UTI (urinary tract infection): Plan: UTI ruled out Urine/Blood Culture negative (3) Urinary retention: (4) Urethral stricture: Plan: H/O prostate cancer s/p prostatectomy and urethral stricture Per records, patient previously used to self cath. Hernández Catheter discontinued, patient voiding without difficulty Continue Flomax DVT PROPHYLAXIS SQ heparin Dispo - awaiting placement, case management following Admission and Anticipated Discharge Date Admission Date: May 30, 2022 Subjective 07/10/2022 The patient was seen and examined in medical floor He is pleasantly confused and wants to go home all the time Not in any apparent distress and not aggressive Review of Systems Review of Systems: Unobtainable due to cognitive status Physical Exam Physical Exam: Sitting at the edge of the bed without any acute distress Constitutional: average body habitus; not ill appearing Eyes: PERRL, conjunctivae normal, anicteric sclerae ENMT: external ear and nose normal, oropharynx normal Neck: trachea midline, no thyromegaly Respiratory: no respiratory distress Auscultation: lungs clear to auscultation bilaterally Cardiovascular: Rate/Rhythm: regular rate and regular rhythm; not tachycardic Heart Sounds: normal S1 and normal S2; no murmur Extremities: no edema Gastrointestinal (Abdomen): Inspection/Auscultation: normal bowel sounds; abdomen not distended Percussion/Palpation: abdomen soft; abdomen nontender Musculoskeletal: No acute arthritis in any of the joint Neurologic: moves all extremities Lymphatic: no cervical or axillary lymphadenopathy Results & Data Results & Data ([facility]) Vital Signs (Past 12 Hours) Vital Signs Temp Pulse Resp BP Pulse Ox O2 Del Method 07/10/22 08:43 Room Air 07/10/22 08:42 36.3 C L 55 L 18 168/66 H 95 Room Air Medications Administered Current Inpatient Medications Acetaminophen (Acetaminophen 325 Mg Tab) 650 mg PO Q4H PRN PRN Reason: pain/fever Stop: 07/30/22 11:55 Last Admin: 07/01/22 11:04 Dose: 650 mg Heparin Sodium (Porcine) (Heparin Sod 5,000 Unit/0.5 Ml Vial) 5,000 units SQ Q12 [facility] Stop: 07/30/22 20:59 Last Admin: 07/10/22 09:25 Dose: 5,000 units Melatonin (Melatonin 3 Mg Tab) 3 mg PO [facility] Stop: 07/30/22 20:59 Last Admin: 07/09/22 21:05 Dose: 3 mg Polyethylene Glycol (Polyethylene (Miralax) 17 Gm Pack) 17 gm PO DAILY PRN PRN Reason: Constipation Stop: 07/30/22 11:30 Last Admin: 06/23/22 10:42 Dose: 17 gm Quetiapine Fumarate (Quetiapine Fumarate 25 Mg Tablet) 25 mg PO [facility] Stop: 07/30/22 20:59 Last Admin: 07/09/22 21:05 Dose: 25 mg Sennosides (Senna 8.6 Mg Tab) 8.6 mg PO [facility] Stop: 07/30/22 18:59 Last Admin: 07/10/22 09:27 Dose: 8.6 mg Tamsulosin HCl (Tamsulosin Hcl 0.4 Mg Cap) [facility] [place] Stop: 07/30/22 12:29 Last Admin: 07/10/22 09:28 Dose: 0.4 mg
[2022-07-10] MEDS: MELATONIN 3 MG TAB PO SCH (20:26)
[2022-07-10] MEDS: QUEtiapine FUMARATE 25 MG TABLET PO SCH (20:26)
[2022-07-11] MEDS: TAMSULOSIN HCL 0.4 MG CAP PO SCH (07:39)
[2022-07-11] MEDS: SENNA 8.6 MG TAB PO SCH (07:39)
[2022-07-11] MEDS: HEPARIN SOD 5,000 UNIT/0.5 ML VIAL SQ SCH ×2 (10:47→20:23)
--- NOTE | 2022-07-11 14:40 | Hospitalist Progress Note ---
Date of Service July 11, 2022 Assessment & Plan (1) Agitation due to dementia: Plan: History ofDementia with mood disturbance ? Agitation secondary to Urinary retention Agitation now resolved Appreciate psychiatry Input Patient currently maintained on melatonin, quetiapine. Delirium precautions Pleasantly confused without any acute delirium dementia Remains medically stable and has been waiting for placement into dementia unit No acute distress but has been getting agitated at times because he has been here for a long time now Sinus bradycardia EKG suggestive of sinus bradycardia with occasional PACs Asymptomatic (2) UTI (urinary tract infection): Plan: UTI ruled out Urine/Blood Culture negative (3) Urinary retention: (4) Urethral stricture: Plan: H/O prostate cancer s/p prostatectomy and urethral stricture Per records, patient previously used to self cath. Hernández Catheter discontinued, patient voiding without difficulty Continue Flomax DVT PROPHYLAXIS SQ heparin Dispo - awaiting placement, case management following Admission and Anticipated Discharge Date Admission Date: May 30, 2022 Subjective 07/10/2022 The patient was seen and examined in medical floor He is pleasantly confused and wants to go home all the time Not in any apparent distress and not aggressive 07/11/2022 The patient was seen and examined in medical floor He remains pleasantly confused and always wants to go home He is symptoms/complaints are nonspecific and does not require any further treatment Review of Systems Review of Systems: ROS per HPI, all other systems reviewed and negative Physical Exam Physical Exam: Sitting at the edge of the bed without any acute distress Constitutional: average body habitus; not ill appearing Eyes: PERRL, conjunctivae normal, anicteric sclerae ENMT: external ear and nose normal, oropharynx normal Neck: trachea midline, no thyromegaly Respiratory: no respiratory distress Auscultation: lungs clear to auscultation bilaterally Cardiovascular: Rate/Rhythm: regular rate and regular rhythm; not tachycardic Heart Sounds: normal S1 and normal S2; no murmur Extremities: no edema Gastrointestinal (Abdomen): Inspection/Auscultation: normal bowel sounds; abdomen not distended Percussion/Palpation: abdomen soft; abdomen nontender Neurologic: moves all extremities Lymphatic: no cervical or axillary lymphadenopathy Results & Data Results & Data ([facility]) Vital Signs (Past 12 Hours) Vital Signs Temp Pulse Resp BP Pulse Ox O2 Del Method 07/11/22 07:52 36.5 C 48 L 16 146/70 H 92 Room Air Medications Administered Current Inpatient Medications Acetaminophen (Acetaminophen 325 Mg Tab) 650 mg PO Q4H PRN PRN Reason: pain/fever Stop: 07/30/22 11:55 Last Admin: 07/01/22 11:04 Dose: 650 mg Heparin Sodium (Porcine) (Heparin Sod 5,000 Unit/0.5 Ml Vial) 5,000 units SQ Q12 [facility] Stop: 07/30/22 20:59 Last Admin: 07/11/22 10:47 Dose: 5,000 units Melatonin (Melatonin 3 Mg Tab) 3 mg PO [facility] Stop: 07/30/22 20:59 Last Admin: 07/10/22 20:26 Dose: 3 mg Polyethylene Glycol (Polyethylene (Miralax) 17 Gm Pack) 17 gm PO DAILY PRN PRN Reason: Constipation Stop: 07/30/22 11:30 Last Admin: 06/23/22 10:42 Dose: 17 gm Quetiapine Fumarate (Quetiapine Fumarate 25 Mg Tablet) 25 mg PO [facility] Stop: 07/30/22 20:59 Last Admin: 07/10/22 20:26 Dose: 25 mg Sennosides (Senna 8.6 Mg Tab) [facility] [place] Stop: 07/30/22 18:59 Last Admin: 07/11/22 07:39 Dose: 8.6 mg Tamsulosin HCl (Tamsulosin Hcl 0.4 Mg Cap) 0.4 mg [facility] [place] Stop: 07/30/22 12:29 Last Admin: 07/11/22 07:39 Dose: 0.4 mg
[2022-07-11] MEDS: QUEtiapine FUMARATE 25 MG TABLET PO SCH (20:23)
[2022-07-11] MEDS: MELATONIN 3 MG TAB PO SCH (20:23)
[2022-07-12] MEDS: TAMSULOSIN HCL 0.4 MG CAP PO SCH (08:57)
[2022-07-12] MEDS: SENNA 8.6 MG TAB PO SCH (08:57)
[2022-07-12] MEDS: HEPARIN SOD 5,000 UNIT/0.5 ML VIAL SQ SCH ×2 (08:58→20:24)
--- NOTE | 2022-07-12 13:47 | Hospitalist Progress Note ---
Date of Service July 12, 2022 Assessment & Plan (1) Agitation due to dementia: Plan: History ofDementia with mood disturbance ? Agitation secondary to Urinary retention Agitation now resolved Appreciate psychiatry Input Patient currently maintained on melatonin, quetiapine. Delirium precautions Pleasantly confused without any acute delirium dementia Remains medically stable and has been waiting for placement into dementia unit No acute distress but has been getting agitated at times because he has been here for a long time now Remains stable medically and awaiting placement Sinus bradycardia EKG suggestive of sinus bradycardia with occasional PACs Asymptomatic (2) UTI (urinary tract infection): Plan: UTI ruled out Urine/Blood Culture negative (3) Urinary retention: (4) Urethral stricture: Plan: H/O prostate cancer s/p prostatectomy and urethral stricture Per records, patient previously used to self cath. Hernández Catheter discontinued, patient voiding without difficulty Continue Flomax DVT PROPHYLAXIS SQ heparin Dispo - awaiting placement, case management following Admission and Anticipated Discharge Date Admission Date: May 30, 2022 Subjective 07/10/2022 The patient was seen and examined in medical floor He is pleasantly confused and wants to go home all the time Not in any apparent distress and not aggressive 07/11/2022 The patient was seen and examined in medical floor He remains pleasantly confused and always wants to go home He is symptoms/complaints are nonspecific and does not require any further treatment 07/12/2022 The patient was seen and examined in medical floor He wants to go home Has been waiting for placement without any definitive answer from any of the fac ilities Review of Systems Review of Systems: ROS per HPI, all other systems reviewed and negative Physical Exam Physical Exam: Sitting at the edge of the bed without any acute distress Constitutional: average body habitus; not ill appearing Eyes: PERRL, conjunctivae normal, anicteric sclerae ENMT: external ear and nose normal, oropharynx normal Neck: trachea midline, no thyromegaly Respiratory: no respiratory distress Auscultation: lungs clear to auscultation bilaterally Cardiovascular: Rate/Rhythm: regular rate and regular rhythm; not tachycardic Heart Sounds: normal S1 and normal S2; no murmur Extremities: no edema Gastrointestinal (Abdomen): Inspection/Auscultation: normal bowel sounds; abdomen not distended Percussion/Palpation: abdomen soft; abdomen nontender Neurologic: moves all extremities Lymphatic: no cervical or axillary lymphadenopathy Results & Data Results & Data ([facility]) Vital Signs (Past 12 Hours) Vital Signs Temp Pulse Resp BP Pulse Ox O2 Del Method 07/12/22 08:07 36.4 C L 54 L 16 162/66 H 93 Room Air Medications Administered Current Inpatient Medications Acetaminophen (Acetaminophen 325 Mg Tab) 650 mg PO Q4H PRN PRN Reason: pain/fever Stop: 07/30/22 11:55 Last Admin: 07/01/22 11:04 Dose: 650 mg Heparin Sodium (Porcine) (Heparin Sod 5,000 Unit/0.5 Ml Vial) 5,000 units SQ Q12 [facility] Stop: 07/30/22 20:59 Last Admin: 07/12/22 08:58 Dose: 5,000 units Melatonin (Melatonin 3 Mg Tab) 3 mg PO HS [facility] Stop: 07/30/22 20:59 Last Admin: 07/11/22 20:23 Dose: 3 mg Polyethylene Glycol (Polyethylene (Miralax) 17 Gm Pack) 17 gm PO DAILY PRN PRN Reason: Constipation Stop: 07/30/22 11:30 Last Admin: 06/23/22 10:42 Dose: 17 gm Quetiapine Fumarate (Quetiapine Fumarate 25 Mg Tablet) 25 mg PO HS [facility] Stop: 07/30/22 20:59 Last Admin: 07/11/22 20:23 Dose: 25 mg Sennosides (Senna 8.6 Mg Tab) [facility] [place] Stop: 07/30/22 18:59 Last Admin: 07/12/22 08:57 Dose: 8.6 mg Tamsulosin HCl (Tamsulosin Hcl 0.4 Mg Cap) 0.4 mg PO QAM [facility] Stop: 07/30/22 12:29 Last Admin: 07/12/22 08:57 Dose: 0.4 mg
[2022-07-12] MEDS: MELATONIN 3 MG TAB PO SCH (20:24)
[2022-07-12] MEDS: QUEtiapine FUMARATE 25 MG TABLET PO SCH (20:24)
[2022-07-13] MEDS: SENNA 8.6 MG TAB PO SCH (09:25)
[2022-07-13] MEDS: HEPARIN SOD 5,000 UNIT/0.5 ML VIAL SQ SCH ×2 (09:25→20:20)
[2022-07-13] MEDS: TAMSULOSIN HCL 0.4 MG CAP PO SCH (09:25)
--- NOTE | 2022-07-13 15:10 | Hospitalist Progress Note ---
Date of Service July 13, 2022 Assessment & Plan (1) Agitation due to dementia: Plan: History ofDementia with mood disturbance ? Agitation secondary to Urinary retention Agitation now resolved Appreciate psychiatry Input Patient currently maintained on melatonin, quetiapine. Delirium precautions Pleasantly confused without any acute delirium dementia Remains medically stable and has been waiting for placement into dementia unit No acute distress but has been getting agitated at times because he has been here for a long time now Remains stable medically and awaiting placement No acute symptoms and wants to go home daily Sinus bradycardia EKG suggestive of sinus bradycardia with occasional PACs Asymptomatic (2) UTI (urinary tract infection): Plan: UTI ruled out Urine/Blood Culture negative (3) Urinary retention: (4) Urethral stricture: Plan: H/O prostate cancer s/p prostatectomy and urethral stricture Per records, patient previously used to self cath. Hernández Catheter discontinued, patient voiding without difficulty Continue Flomax DVT PROPHYLAXIS SQ heparin Dispo - awaiting placement, case management following Admission and Anticipated Discharge Date Admission Date: May 30, 2022 Subjective 07/10/2022 The patient was seen and examined in medical floor He is pleasantly confused and wants to go home all the time Not in any apparent distress and not aggressive 07/11/2022 The patient was seen and examined in medical floor He remains pleasantly confused and always wants to go home He is symptoms/complaints are nonspecific and does not require any further treatment 07/12/2022 The patient was seen and examined in medical floor He wants to go home Has been waiting for placement without any definitive answer from any of the facilities 07/13/2022 The patient was seen and examined in medical floor He has dementia and awaiting placement Review of Systems Review of Systems: ROS per HPI, all other systems reviewed and negative Physical Exam Physical Exam: Sitting at the edge of the bed without any acute distress Constitutional: average body habitus; not ill appearing Eyes: PERRL, conjunctivae normal, anicteric sclerae ENMT: external ear and nose normal, oropharynx normal Neck: trachea midline, no thyromegaly Respiratory: no respiratory distress Auscultation: lungs clear to auscultation bilaterally Cardiovascular: Rate/Rhythm: regular rate and regular rhythm; not tachycardic Heart Sounds: normal S1 and normal S2; no murmur Extremities: no edema Gastrointestinal (Abdomen): Inspection/Auscultation: normal bowel sounds; abdomen not distended Percussion/Palpation: abdomen soft; abdomen nontender Neurologic: moves all extremities Lymphatic: no cervical or axillary lymphadenopathy Results & Data Results & Data ([facility]) Vital Signs (Past 12 Hours) Vital Signs Temp Pulse Resp BP Pulse Ox O2 Del Method 07/13/22 14:07 36.6 C 56 L 18 145/73 H 96 Room Air 07/13/22 08:18 36.5 C 50 L 16 143/72 H 96 Room Air
[2022-07-13] MEDS: MELATONIN 3 MG TAB PO SCH (20:19)
[2022-07-13] MEDS: QUEtiapine FUMARATE 25 MG TABLET PO SCH (20:19)
[2022-07-14] MEDS: HEPARIN SOD 5,000 UNIT/0.5 ML VIAL SQ SCH ×2 (08:50→21:11)
[2022-07-14] MEDS: TAMSULOSIN HCL 0.4 MG CAP PO SCH (08:51)
[2022-07-14] MEDS: SENNA 8.6 MG TAB PO SCH (09:04)
--- NOTE | 2022-07-14 18:21 | Hospitalist Progress Note ---
Date of Service July 14, 2022 Assessment & Plan (1) Agitation due to dementia: Plan: History ofDementia with mood disturbance ? Agitation secondary to Urinary retention Agitation now resolved Appreciate psychiatry Input Patient currently maintained on melatonin, quetiapine. Delirium precautions Pleasantly confused without any acute delirium dementia Remains medically stable and has been waiting for placement into dementia unit No acute distress but has been getting agitated at times because he has been here for a long time now Remains stable medically and awaiting placement No acute symptoms and wants to go home daily Has been awaiting placement Sinus bradycardia EKG suggestive of sinus bradycardia with occasional PACs Asymptomatic (2) UTI (urinary tract infection): Plan: UTI ruled out Urine/Blood Culture negative (3) Urinary retention: (4) Urethral stricture: Plan: H/O prostate cancer s/p prostatectomy and urethral stricture Per records, patient previously used to self cath. Hernández Catheter discontinued, patient voiding without difficulty Continue Flomax DVT PROPHYLAXIS SQ heparin Dispo - awaiting placement, case management following Admission and Anticipated Discharge Date Admission Date: May 30, 2022 Subjective 07/10/2022 The patient was seen and examined in medical floor He is pleasantly confused and wants to go home all the time Not in any apparent distress and not aggressive 07/11/2022 The patient was seen and examined in medical floor He remains pleasantly confused and always wants to go home He is symptoms/complaints are nonspecific and does not require any further treatment 07/12/2022 The patient was seen and examined in medical floor He wants to go home Has been waiting for placement without any definitive answer from any of the facilities 07/13/2022 The patient was seen and examined in medical floor He has dementia and awaiting placement 07/14/2022 The patient was seen and examined in medical floor Remains medically stable, pleasantly confused and awaiting placement Review of Systems Review of Systems: ROS per HPI, all other systems reviewed and negative Physical Exam Physical Exam: Sitting at the edge of the bed without any acute distress Constitutional: average body habitus; not ill appearing Eyes: PERRL, conjunctivae normal, anicteric sclerae ENMT: external ear and nose normal, oropharynx normal Neck: trachea midline, no thyromegaly Respiratory: no respiratory distress Auscultation: lungs clear to auscultation bilaterally Cardiovascular: Rate/Rhythm: regular rate and regular rhythm; not tachycardic Heart Sounds: normal S1 and normal S2; no murmur Extremities: no edema Gastrointestinal (Abdomen): Inspection/Auscultation: normal bowel sounds; abdomen not distended Percussion/Palpation: abdomen soft; abdomen nontender Musculoskeletal: Has osteoarthritis but no acute arthritis in any joint Neurologic: moves all extremities Lymphatic: no cervical or axillary lymphadenopathy Results & Data Results & Data ([facility]) Vital Signs (Past 12 Hours) Vital Signs Temp Pulse Pulse Resp BP Pulse Ox O2 Del Method 07/14/22 15:20 36.7 C 68 18 169/72 H 93 Room Air 07/14/22 07:00 36.5 C 53 L 16 148/69 H 93 Room Air
[2022-07-14] MEDS: MELATONIN 3 MG TAB PO SCH (21:14)
[2022-07-14] MEDS: QUEtiapine FUMARATE 25 MG TABLET PO SCH (21:14)
[2022-07-15] MEDS: SENNA 8.6 MG TAB PO SCH (08:44)
[2022-07-15] MEDS: HEPARIN SOD 5,000 UNIT/0.5 ML VIAL SQ SCH ×2 (08:45→19:42)
[2022-07-15] MEDS: TAMSULOSIN HCL 0.4 MG CAP PO SCH (08:45)
--- NOTE | 2022-07-15 17:46 | Hospitalist Progress Note ---
Date of Service July 15, 2022 Assessment & Plan (1) Agitation due to dementia: Plan: History ofDementia with mood disturbance ? Agitation secondary to Urinary retention Agitation now resolved Appreciate psychiatry Input Patient currently maintained on melatonin, quetiapine. Delirium precautions Pleasantly confused without any acute delirium dementia Remains medically stable and has been waiting for placement into dementia unit No acute distress but has been getting agitated at times because he has been here for a long time now Remains stable medically and awaiting placement No acute symptoms and wants to go home daily Has been awaiting placement Remains stable and awaiting placement Sinus bradycardia EKG suggestive of sinus bradycardia with occasional PACs Asymptomatic (2) UTI (urinary tract infection): Plan: UTI ruled out Urine/Blood Culture negative (3) Urinary retention: (4) Urethral stricture: Plan: H/O prostate cancer s/p prostatectomy and urethral stricture Per records, patient previously used to self cath. Hernández Catheter discontinued, patient voiding without difficulty Continue Flomax DVT PROPHYLAXIS SQ heparin Dispo - awaiting placement, case management following Admission and Anticipated Discharge Date Admission Date: May 30, 2022 Subjective 07/10/2022 The patient was seen and examined in medical floor He is pleasantly confused and wants to go home all the time Not in any apparent distress and not aggressive 07/11/2022 The patient was seen and examined in medical floor He remains pleasantly confused and always wants to go home He is symptoms/complaints are nonspecific and does not require any further treatment 07/12/2022 The patient was seen and examined in medical floor He wants to go home Has been waiting for placement without any definitive answer from any of the facilities 07/13/2022 The patient was seen and examined in medical floor He has dementia and awaiting placement 07/14/2022 The patient was seen and examined in medical floor Remains medically stable, pleasantly confused and awaiting placement 07/15/2022 The patient was seen and examined in medical floor He remains stable, pleasantly confused and awaiting placement Review of Systems Review of Systems: ROS per HPI, all other systems reviewed and negative Physical Exam Physical Exam: Sitting at the edge of the bed without any acute distress Constitutional: average body habitus; not ill appearing Eyes: PERRL, conjunctivae normal, anicteric sclerae ENMT: external ear and nose normal, oropharynx normal Neck: trachea midline, no thyromegaly Respiratory: no respiratory distress Auscultation: lungs clear to auscultation bilaterally Cardiovascular: Rate/Rhythm: regular rate and regular rhythm; not tachycardic Heart Sounds: normal S1 and normal S2; no murmur Extremities: no edema Gastrointestinal (Abdomen): Inspection/Auscultation: normal bowel sounds; abdomen not distended Percussion/Palpation: abdomen soft; abdomen nontender Neurologic: moves all extremities Lymphatic: no cervical or axillary lymphadenopathy Results & Data Results & Data ([facility]) Vital Signs (Past 12 Hours) Vital Signs Temp Pulse Resp BP Pulse Ox O2 Del Method 07/15/22 15:35 36.7 C 60 18 150/70 H 93 Room Air 07/15/22 12:21 36.8 C 65 18 147/71 H 92 Room Air 07/15/22 07:54 36.5 C 61 16 156/91 H 92 Room Air
[2022-07-15] MEDS: QUEtiapine FUMARATE 25 MG TABLET PO SCH (19:43)
[2022-07-15] MEDS: MELATONIN 3 MG TAB PO SCH (19:43)
[2022-07-16] MEDS: TAMSULOSIN HCL 0.4 MG CAP PO SCH (07:20)
[2022-07-16] MEDS: HEPARIN SOD 5,000 UNIT/0.5 ML VIAL SQ SCH ×2 (07:20→20:37)
[2022-07-16] MEDS: SENNA 8.6 MG TAB PO SCH (07:21)
--- NOTE | 2022-07-16 17:07 | Hospitalist Progress Note ---
Date of Service July 16, 2022 Assessment & Plan (1) Agitation due to dementia: (2) UTI (urinary tract infection): (3) Urinary retention: (4) Urethral stricture: Plan: Per Dr. Hook's notes with addendum: (1) Agitation due to dementia: Plan: History ofDementia with mood disturbance ? Agitation secondary to Urinary retention Agitation now resolved Appreciate psychiatry Input Patient currently maintained on melatonin, quetiapine. Delirium precautions Pleasantly confused without any acute delirium dementia Remains medically stable and has been waiting for placement into dementia unit No acute distress but has been getting agitated at times because he has been here for a long time now Remains stable medically and awaiting placement No acute symptoms and wants to go home daily Has been awaiting placement Remains stable and awaiting placement 07/16 Patient upset today, raising his voice Patient gently reassured, reoriented Continue Seroquel 25 mg at bedtime Sinus bradycardia EKG suggestive of sinus bradycardia with occasional PACs Asymptomatic (2) UTI (urinary tract infection): Plan: UTI ruled out Urine/Blood Culture negative (3) Urinary retention: (4) Urethral stricture: Plan: H/O prostate cancer s/p prostatectomy and urethral stricture Per records, patient previously used to self cath. Hernández Catheter discontinued, patient voiding without difficulty Continue Flomax 07/16 No urinary symptoms DVT PROPHYLAXIS SQ heparin Dispo -awaiting placement, case management following Admission and Anticipated Discharge Date Admission Date: May 30, 2022 Subjective Follow-up for dementia, agitation, etc. Seen sitting up in bed, watching TV Patient seems to be very irritable He is also confused Reports that he has been here for months already, and would like to be discharged to home-states he needs to help his sister Jayda who has a heart condition Patient reports that I told him last Thursday that he will be discharged today I explained to the patient that he is on the weak side and he needs to be transition to retirement facility for further physical therapy, and supervision States he is ambulating in the hallways with his walker with no problems no chest pain, dyspnea, palpitations, dizziness No other issues per staff counsel Review of Systems Review of Systems: all noted and negative except for above Physical Exam Physical Exam: General- oriented x 1, not in distress, speaks in sentences with no effort or accessory muscle use Eyes- anicteric Neck- no JVD Lungs- clear breath sounds bilaterally, no rales/wheezes Heart- normal rate, regular rhythm; no murmurs Abdomen- normal bowel sounds, nondistended, soft, nontender Extremities- no pretibial edema, no calf tenderness Neuro- alert, oriented x 3; no gross focal neurologic deficits Skin- warm & dry Results & Data Results & Data ([facility]) Vital Signs (Past 12 Hours) Vital Signs Temp Pulse Resp BP Pulse Ox O2 Del Method 07/16/22 15:18 36.4 C L 66 20 156/68 H 98 Room Air 07/16/22 07:36 36.7 C 69 17 146/61 H 94 Room Air all noted and reviewed including below
[2022-07-16] MEDS: QUEtiapine FUMARATE 25 MG TABLET PO SCH (20:39)
[2022-07-16] MEDS: MELATONIN 3 MG TAB PO SCH (20:39)
[2022-07-17] MEDS: SENNA 8.6 MG TAB PO SCH (08:16)
[2022-07-17] MEDS: HEPARIN SOD 5,000 UNIT/0.5 ML VIAL SQ SCH ×2 (08:17→20:11)
[2022-07-17] MEDS: TAMSULOSIN HCL 0.4 MG CAP PO SCH (08:17)
--- NOTE | 2022-07-17 16:26 | Hospitalist Progress Note ---
Date of Service July 17, 2022 delayed entry date of service noted above Assessment & Plan (1) Dementia with behavioral disturbance: Plan: History ofDementia with mood disturbance ? Agitation secondary to Urinary retention Agitation now resolved Appreciate psychiatry Input Patient currently maintained on melatonin, quetiapine. Delirium precautions Pleasantly confused without any acute delirium dementia Remains medically stable and has been waiting for placement into dementia unit No acute distress but has been getting agitated at times because he has been here for a long time now Remains stable medically and awaiting placement No acute symptoms and wants to go home daily Has been awaiting placement Remains stable and awaiting placement 07/16 Patient upset today, raising his voice Patient gently reassured, reoriented Continue Seroquel 25 mg at bedtime 07/17 no new changes continue present medications Sinus bradycardia EKG suggestive of sinus bradycardia with occasional PACs Asymptomatic (2) UTI (urinary tract infection): Plan: UTI ruled out Urine/Blood Culture negative (3) Urinary retention: (4) Urethral stricture: Plan: H/O prostate cancer s/p prostatectomy and urethral stricture Per records, patient previously used to self cath. Hernández Catheter discontinued, patient voiding without difficulty Continue Flomax 07/17 No urinary symptoms DVT PROPHYLAXIS SQ heparin Dispo -awaiting placement, case management following Admission and Anticipated Discharge Date Admission Date: May 30, 2022 Subjective ff up for dementia , etc Seen resting in bed, comfortable, not in distress Confused, states he feels fine overall Still adamant that he would like to go home no chest pain, dyspnea, palpitations, dizziness No other symptoms noted Review of Systems Review of Systems: all noted and negative except for above Physical Exam Physical Exam: General- oriented x 1, not in distress, speaks in sentences with no effort or accessory muscle use Eyes- anicteric Neck- no JVD Lungs- clear BS BL Heart- normal rate, regular rhythm; no murmurs Abdomen- normal bowel sounds, nondistended, soft, no tenderness Extremities- no pretibial edema, no calf tenderness Neuro- alert, oriented x 3; no gross focal neurologic deficits Skin- warm & dry Results & Data Results & Data ([facility]) Vital Signs (Past 12 Hours) Vital Signs Temp Pulse Resp BP Pulse Ox O2 Del Method 07/17/22 14:15 36.7 C 56 L 17 160/63 H 96 Room Air 07/17/22 07:30 36.6 C 51 L 17 142/67 H 95 Room Air all noted and reviewed including below
[2022-07-17] MEDS: QUEtiapine FUMARATE 25 MG TABLET PO SCH (20:09)
[2022-07-17] MEDS: MELATONIN 3 MG TAB PO SCH (20:09)
[2022-07-18] MEDS: TAMSULOSIN HCL 0.4 MG CAP PO SCH (09:54)
[2022-07-18] MEDS: SENNA 8.6 MG TAB PO SCH (09:54)
[2022-07-18] MEDS: HEPARIN SOD 5,000 UNIT/0.5 ML VIAL SQ SCH ×2 (09:55→20:23)
--- NOTE | 2022-07-18 19:22 | Hospitalist Progress Note ---
Date of Service July 18, 2022 delayed entry date of service noted above Assessment & Plan (1) Dementia with behavioral disturbance: Plan: History ofDementia with mood disturbance ? Agitation secondary to Urinary retention Agitation now resolved Appreciate psychiatry Input Patient currently maintained on melatonin, quetiapine. Delirium precautions Pleasantly confused without any acute delirium dementia Remains medically stable and has been waiting for placement into dementia unit No acute distress but has been getting agitated at times because he has been here for a long time now Remains stable medically and awaiting placement No acute symptoms and wants to go home daily Has been awaiting placement Remains stable and awaiting placement 07/16 Patient upset today, raising his voice Patient gently reassured, reoriented Continue Seroquel 25 mg at bedtime 07/17 no new changes continue present medications 07/18 stable overall continue same meds Sinus bradycardia EKG suggestive of sinus bradycardia with occasional PACs Asymptomatic (2) UTI (urinary tract infection): Plan: UTI ruled out Urine/Blood Culture negative (3) Urinary retention: (4) Urethral stricture: Plan: H/O prostate cancer s/p prostatectomy and urethral stricture Per records, patient previously used to self cath. Hernández Catheter discontinued, patient voiding without difficulty Continue Flomax 07/18 No urinary symptoms DVT PROPHYLAXIS SQ heparin Dispo -awaiting placement, case management following Admission and Anticipated Discharge Date Admission Date: May 30, 2022 Subjective ff up for dementia etc seen resting in bed, comfortable not in distress confused, upset- would like to go home- reassured states he feels fine overall no chest pain, dyspnea, palpitations, dizziness no other symptoms Review of Systems Review of Systems: all noted and negative except for above Physical Exam Physical Exam: General- oriented x 3, not in distress, speaks in sentences with no effort or accessory muscle use Eyes- anicteric Neck- no JVD Lungs- clear BS bilaterally, no rales/wheezes Heart- normal rate, regular rhythm; no murmurs Abdomen- normal bowel sounds, nondistended, soft, nontender Extremities- no pretibial edema, no calf tenderness Neuro- alert, oriented x 3; no gross focal neurologic deficits Skin- warm & dry Results & Data Results & Data ([facility]) Vital Signs (Past 12 Hours) Vital Signs Temp Pulse Resp BP Pulse Ox O2 Del Method 07/18/22 15:22 36.7 C 76 17 157/55 H 97 Room Air 07/18/22 07:36 36.6 C 55 L 17 159/67 H 95 Room Air all noted and reviewed including below
[2022-07-18] MEDS: MELATONIN 3 MG TAB PO SCH (20:21)
[2022-07-18] MEDS: QUEtiapine FUMARATE 25 MG TABLET PO SCH (20:21)
[2022-07-19] MEDS: HEPARIN SOD 5,000 UNIT/0.5 ML VIAL SQ SCH ×2 (10:13→20:30)
[2022-07-19] MEDS: SENNA 8.6 MG TAB PO SCH (10:14)
[2022-07-19] MEDS: TAMSULOSIN HCL 0.4 MG CAP PO SCH (10:14)
--- NOTE | 2022-07-19 13:20 | Hospitalist Progress Note ---
Date of Service July 19, 2022 Assessment & Plan (1) Dementia with behavioral disturbance: Plan: History ofDementia with mood disturbance ? Agitation secondary to Urinary retention Agitation now resolved Appreciate psychiatry Input Patient currently maintained on melatonin, quetiapine. Delirium precautions Pleasantly confused without any acute delirium dementia Remains medically stable and has been waiting for placement into dementia unit No acute distress but has been getting agitated at times because he has been here for a long time now Remains stable medically and awaiting placement No acute symptoms and wants to go home daily Has been awaiting placement Remains stable and awaiting placement 07/19 medically stable upset, wants to go home, reassured Sinus bradycardia EKG suggestive of sinus bradycardia with occasional PACs Asymptomatic (2) UTI (urinary tract infection): Plan: UTI ruled out Urine/Blood Culture negative (3) Urinary retention: (4) Urethral stricture: Plan: H/O prostate cancer s/p prostatectomy and urethral stricture Per records, patient previously used to self cath. Hernández Catheter discontinued, patient voiding without difficulty Continue Flomax 07/19 No urinary symptoms DVT PROPHYLAXIS SQ heparin Dispo -awaiting placement, case management following Admission and Anticipated Discharge Date Admission Date: May 30, 2022 Subjective ff up for dementia, etc seen resting in bed, comfortable feels fine overall no chest pain, dyspnea, palpitations, dizziness no other symptoms no other issues per [employer] Review of Systems Review of Systems: all noted and negative except for above Physical Exam Physical Exam: General- oriented x 1, not in distress, speaks in sentences with no effort or accessory muscle use Eyes- anicteric Neck- no JVD Lungs- clear BS BL Heart- normal rate, regular rhythm; no murmurs Abdomen- normal bowel sounds, nondistended, soft, nontender Extremities- no pretibial edema, no calf tenderness Neuro- alert, oriented x 1; no gross focal neurologic deficits Skin- warm & dry Results & Data Results & Data ([facility]) Vital Signs (Past 12 Hours) Vital Signs Temp Pulse Resp BP BP Pulse Ox O2 Del Method 07/19/22 07:50 141/64 H 07/19/22 07:48 36.5 C 50 L 16 167/76 H 94 Room Air all noted and reviewed including below
[2022-07-19] MEDS: MELATONIN 3 MG TAB PO SCH (20:29)
[2022-07-19] MEDS: QUEtiapine FUMARATE 25 MG TABLET PO SCH (20:30)
[2022-07-20] MEDS: TAMSULOSIN HCL 0.4 MG CAP PO SCH (09:42)
[2022-07-20] MEDS: SENNA 8.6 MG TAB PO SCH (09:42)
[2022-07-20] MEDS: HEPARIN SOD 5,000 UNIT/0.5 ML VIAL SQ SCH ×3 (09:46→21:45)
--- NOTE | 2022-07-20 18:06 | Hospitalist Progress Note ---
Date of Service July 20, 2022 Assessment & Plan (1) Dementia with behavioral disturbance: Plan: History ofDementia with mood disturbance ? Agitation secondary to Urinary retention Agitation now resolved Appreciate psychiatry Input Patient currently maintained on melatonin, quetiapine. Delirium precautions Pleasantly confused without any acute delirium dementia Remains medically stable and has been waiting for placement into dementia unit No acute distress but has been getting agitated at times because he has been here for a long time now Remains stable medically and awaiting placement No acute symptoms and wants to go home daily Has been awaiting placement Remains stable and awaiting placement 07/20 medically stable Cooperative Sinus bradycardia EKG suggestive of sinus bradycardia with occasional PACs Asymptomatic (2) UTI (urinary tract infection): Plan: UTI ruled out Urine/Blood Culture negative (3) Urinary retention: (4) Urethral stricture: Plan: H/O prostate cancer s/p prostatectomy and urethral stricture Per records, patient previously used to self cath. Hernández Catheter discontinued, patient voiding without difficulty Continue Flomax 07/20 Patient reporting urinary retention and incomplete voiding Bladder scan every shift, straight cath as needed If persistently having urinary retention, will reinsert Hernández catheter DVT PROPHYLAXIS SQ heparin Dispo -awaiting placement, case management following Admission and Anticipated Discharge Date Admission Date: May 30, 2022 Subjective Follow-up for dementia, etc. Seen resting in bed, comfortable, not in distress Reporting straining with urination and incomplete voiding No fevers or chills, abdominal pain no chest pain, dyspnea, palpitations, dizziness No other symptoms Review of Systems Review of Systems: all noted and negative except for above Physical Exam Physical Exam: General- oriented x 1, not in distress, speaks in sentences with no effort or accessory muscle use Eyes- anicteric Neck- no JVD Lungs- clear BS BL Heart- normal rate, regular rhythm; no murmurs Abdomen- normal bowel sounds, nondistended, soft, no tenderness Extremities- no pretibial edema, no calf tenderness Neuro- alert, oriented x 1; no gross focal neurologic deficits Skin- warm & dry Results & Data Results & Data ([facility]) Vital Signs (Past 12 Hours) Vital Signs Temp Pulse Resp BP Pulse Ox O2 Del Method 07/20/22 14:42 36.7 C 71 16 152/63 H 93 Room Air 07/20/22 07:34 36.6 C 66 18 152/73 H 95 Room Air all noted and reviewed including below
[2022-07-20] MEDS: MELATONIN 3 MG TAB PO SCH (21:41)
[2022-07-20] MEDS: QUEtiapine FUMARATE 25 MG TABLET PO SCH (21:42)
[2022-07-21] MEDS: TAMSULOSIN HCL 0.4 MG CAP PO SCH (08:26)
[2022-07-21] MEDS: HEPARIN SOD 5,000 UNIT/0.5 ML VIAL SQ SCH ×2 (08:26→20:27)
[2022-07-21] MEDS: SENNA 8.6 MG TAB PO SCH (08:26)
--- NOTE | 2022-07-21 14:31 | Hospitalist Progress Note ---
Date of Service July 21, 2022 Assessment & Plan (1) Dementia with behavioral disturbance: Plan: History ofDementia with mood disturbance ? Agitation secondary to Urinary retention Agitation now resolved Appreciate psychiatry Input Patient currently maintained on melatonin, quetiapine. Delirium precautions Pleasantly confused without any acute delirium dementia Remains medically stable and has been waiting for placement into dementia unit No acute distress but has been getting agitated at times because he has been here for a long time now Remains stable medically and awaiting placement No acute symptoms and wants to go home daily Has been awaiting placement Remains stable and awaiting placement 07/21 medically stable upset but cooperative Sinus bradycardia EKG suggestive of sinus bradycardia with occasional PACs Asymptomatic (2) UTI (urinary tract infection): Plan: UTI ruled out Urine/Blood Culture negative (3) Urinary retention: (4) Urethral stricture: Plan: H/O prostate cancer s/p prostatectomy and urethral stricture Per records, patient previously used to self cath. Hernández Catheter discontinued, patient voiding without difficulty Continue Flomax 07/20 Patient reporting urinary retention and incomplete voiding Bladder scan every shift, straight cath as needed If persistently having urinary retention, will reinsert Hernández catheter 07/21 Bladder scan: no urinary retention noted denies problems with voiding today monitor DVT PROPHYLAXIS SQ heparin Dispo -awaiting placement, case management following Admission and Anticipated Discharge Date Admission Date: May 30, 2022 Subjective ff up for dementia, etc seen resting in bed, comfortable watching TV denies problems with urination no abdominal pain no chest pain, dyspnea, palpitations, dizziness upset, still adamant to go back home no other symptoms Review of Systems Review of Systems: all noted and negative except for above Physical Exam Physical Exam: General- oriented x1, not in distress, speaks in sentences with no effort or accessory muscle use Eyes- anicteric Neck- no JVD Lungs- clear breath sounds bilaterally Heart- normal rate, regular rhythm; no murmurs Abdomen- normal bowel sounds, nondistended, soft, nontender no suprapubic tenderness/distention Extremities- no pretibial edema, no calf tenderness Neuro- alert, oriented x 1; no gross focal neurologic deficits Skin- warm & dry Results & Data Results & Data ([facility]) Vital Signs (Past 12 Hours) Vital Signs Temp Pulse Resp BP Pulse Ox O2 Del Method 07/21/22 07:41 36.5 C 52 L 16 156/67 H 93 Room Air all noted and reviewed including below
[2022-07-21] MEDS: MELATONIN 3 MG TAB PO SCH (20:27)
[2022-07-21] MEDS: QUEtiapine FUMARATE 25 MG TABLET PO SCH (20:27)
[2022-07-22] MEDS: TAMSULOSIN HCL 0.4 MG CAP PO SCH (08:33)
[2022-07-22] MEDS: SENNA 8.6 MG TAB PO SCH (08:33)
[2022-07-22] MEDS: HEPARIN SOD 5,000 UNIT/0.5 ML VIAL SQ SCH ×3 (08:33→20:09)
--- NOTE | 2022-07-22 16:58 | Hospitalist Progress Note ---
Date of Service July 22, 2022 Assessment & Plan (1) Dementia with behavioral disturbance: Plan: History of Dementia with mood disturbance ? Agitation secondary to Urinary retention Agitation now resolved Appreciate psychiatry Input Patient currently maintained on melatonin, quetiapine. 07/22 Remains medically stable Awaiting placement Sinus bradycardia EKG suggestive of sinus bradycardia with occasional PACs Asymptomatic Urinary retention: Urethral stricture: Plan: H/O prostate cancer s/p prostatectomy and urethral stricture Per records, patient previously used to self cath. Hernández Catheter discontinued, patient voiding without difficulty Continue Flomax 07/22 Bladder scan: no urinary retention noted denies problems with voiding today monitor DVT PROPHYLAXIS SQ heparin Dispo -awaiting placement, case management following Admission and Anticipated Discharge Date Admission Date: May 30, 2022 Subjective Follow-up for dementia, agitation, etc. Seen sitting up in bedside chair, comfortable, watching TV Pleasantly confused States he feels fine overall Denies pain, shortness of breath, dizziness, problems with urination No other symptoms Review of Systems Review of Systems: all noted and negative except for above Physical Exam Physical Exam: General- oriented x 1, not in distress, speaks in sentences with no effort or accessory muscle use Eyes- anicteric Neck- no JVD Lungs- clear BS bilaterally, no rales/wheezes Heart- normal rate, regular rhythm; no murmurs Abdomen- normal bowel sounds, nondistended, soft, no tenderness noted Extremities- no pretibial edema, no calf tenderness Neuro- alert, oriented x 1; no gross focal neurologic deficits Skin- warm & dry Results & Data Results & Data ([facility]) Vital Signs (Past 12 Hours) Vital Signs Temp Pulse Resp BP Pulse Ox O2 Del Method 07/22/22 15:50 36.7 C 59 L 18 149/64 H 92 Room Air 07/22/22 07:42 36.8 C 54 L 16 144/58 H 94 Room Air all noted and reviewed including below
[2022-07-22] MEDS: QUEtiapine FUMARATE 25 MG TABLET PO SCH (20:09)
[2022-07-22] MEDS: MELATONIN 3 MG TAB PO SCH (20:09)
[2022-07-23] MEDS: SENNA 8.6 MG TAB PO SCH (09:19)
[2022-07-23] MEDS: TAMSULOSIN HCL 0.4 MG CAP PO SCH (09:19)
[2022-07-23] MEDS: HEPARIN SOD 5,000 UNIT/0.5 ML VIAL SQ SCH ×2 (09:19→20:00)
--- NOTE | 2022-07-23 17:14 | Hospitalist Progress Note ---
Date of Service July 23, 2022 Assessment & Plan (1) Dementia with behavioral disturbance: Plan: History of Dementia with mood disturbance ? Agitation secondary to Urinary retention Appreciate psychiatry Input Patient currently maintained on melatonin, quetiapine. Will continue to monitor, may need up titration of medications if more frequent outbursts Needs placement to a memory care facility Sinus bradycardia EKG suggestive of sinus bradycardia with occasional PACs Asymptomatic Urinary retention: Urethral stricture: Plan: H/O prostate cancer s/p prostatectomy and urethral stricture Per records, patient previously used to self cath. Hernández Catheter discontinued, patient voiding without difficulty Continue Flomax 07/22 Bladder scan: no urinary retention noted denies problems with voiding today monitor DVT PROPHYLAXIS SQ heparin Dispo -awaiting placement, case management following Admission and Anticipated Discharge Date Admission Date: May 30, 2022 Subjective Patient became agitated and began shouting at me shortly after I entered room. Patient wants to go home to help his sister move, etc He was later seen ambulating in hallway with walker and nurse aide calmly and w ith no difficulty Review of Systems Review of Systems: Limited due to patient's mood currently Physical Exam Physical Exam: no acute distress, non toxic, angry/agitated currently Respiratory: breathing comfortably on room air, no accessory muscle use Neurologic: awake, spontaneously moving extremities, ambulates with walker with no difficulty Psychiatric: angry Results & Data Results & Data ([facility]) Vital Signs (Past 12 Hours) Vital Signs Temp Pulse Resp BP Pulse Ox O2 Del Method 07/23/22 07:18 36.6 C 53 L 18 133/66 94 Room Air
[2022-07-23] MEDS: MELATONIN 3 MG TAB PO SCH (20:00)
[2022-07-23] MEDS: QUEtiapine FUMARATE 25 MG TABLET PO SCH (20:00)
[2022-07-24] MEDS: HEPARIN SOD 5,000 UNIT/0.5 ML VIAL SQ SCH ×2 (08:30→19:30)
[2022-07-24] MEDS: SENNA 8.6 MG TAB PO SCH (08:37)
[2022-07-24] MEDS: TAMSULOSIN HCL 0.4 MG CAP PO SCH (08:37)
--- NOTE | 2022-07-24 18:31 | Hospitalist Progress Note ---
Date of Service July 24, 2022 Assessment & Plan (1) Dementia with behavioral disturbance: Plan: History of Dementia with mood disturbance Appreciate psychiatry Input Patient currently maintained on melatonin, quetiapine. Will continue to monitor, may need up titration of medications if more frequent outbursts Needs placement to a memory care facility Sinus bradycardia EKG suggestive of sinus bradycardia with occasional PACs Asymptomatic Urinary retention: Urethral stricture: Plan: H/O prostate cancer s/p prostatectomy and urethral stricture Per records, patient previously used to self cath. Hernández Catheter discontinued, patient voiding without difficulty Continue Flomax 07/22 Bladder scan: no urinary retention noted denies problems with voiding today monitor DVT PROPHYLAXIS SQ heparin Dispo -awaiting placement, case management following Admission and Anticipated Discharge Date Admission Date: May 30, 2022 Subjective Calm. No events overnight Waiting for placement Physical Exam Physical Exam: Laying in bed, calm and comfortable Respiratory: breathing comfortably on room air, no wheezing/rhonchi/rales Cardiovascular: regular rate and rhythm, no murmurs/rubs/gallops Gastrointestinal (Abdomen): soft Musculoskeletal: no edema Neurologic: awake, spontaneously moving extremities Results & Data Results & Data ([facility]) Vital Signs (Past 12 Hours) Vital Signs Temp Pulse Resp BP Pulse Ox O2 Del Method 07/24/22 14:39 37.3 C 59 L 18 136/79 93 Room Air 07/24/22 07:57 37.1 C 50 L 18 147/79 H 93 Room Air
[2022-07-24] MEDS: QUEtiapine FUMARATE 25 MG TABLET PO SCH (19:32)
[2022-07-24] MEDS: MELATONIN 3 MG TAB PO SCH (19:32)
[2022-07-25] MEDS: SENNA 8.6 MG TAB PO SCH (07:54)
[2022-07-25] MEDS: TAMSULOSIN HCL 0.4 MG CAP PO SCH (07:54)
[2022-07-25] MEDS: POLYETHYLENE (MIRALAX) 17 GM PACK PO SCH (07:55)
[2022-07-25] MEDS: HEPARIN SOD 5,000 UNIT/0.5 ML VIAL SQ SCH ×2 (07:55→20:16)
--- NOTE | 2022-07-25 20:03 | Hospitalist Progress Note ---
Date of Service July 25, 2022 Assessment & Plan (1) Dementia with behavioral disturbance: Plan: History of Dementia with mood disturbance Appreciate psychiatry Input Patient currently maintained on melatonin, quetiapine. Will continue to monitor, mood is stable currently Needs placement to a memory care facility Sinus bradycardia EKG suggestive of sinus bradycardia with occasional PACs Asymptomatic Urinary retention: Urethral stricture: Plan: H/O prostate cancer s/p prostatectomy and urethral stricture Per records, patient previously used to self cath. Hernández Catheter discontinued, patient voiding without difficulty Continue Flomax 07/22 Bladder scan: no urinary retention noted denies problems with voiding today monitor DVT PROPHYLAXIS SQ heparin Dispo -awaiting placement, case management following Admission and Anticipated Discharge Date Admission Date: May 30, 2022 Subjective No issues overnight. Calm currently. No chest pain, no shortness of breath Physical Exam Physical Exam: Sitting in chair, pleasant and comfortable Respiratory: Breathing comfortably on room air, no wheezing/rhonchi Cardiovascular: regular rate and rhythm, no murmurs/rubs Gastrointestinal (Abdomen): soft, non tender Musculoskeletal: No edema Neurologic: awake, alert, spontaneously moving extremities Psychiatric: calm Results & Data Results & Data ([facility]) Vital Signs (Past 12 Hours) Vital Signs Temp Pulse Resp BP Pulse Ox O2 Del Method 07/25/22 14:31 36.5 C 65 16 149/50 H 96 Room Air
[2022-07-25] MEDS: MELATONIN 3 MG TAB PO SCH (20:16)
[2022-07-25] MEDS: QUEtiapine FUMARATE 25 MG TABLET PO SCH (20:16)
[2022-07-26] MEDS: HEPARIN SOD 5,000 UNIT/0.5 ML VIAL SQ SCH ×2 (08:37→20:00)
[2022-07-26] MEDS: POLYETHYLENE (MIRALAX) 17 GM PACK PO SCH (08:37)
[2022-07-26] MEDS: TAMSULOSIN HCL 0.4 MG CAP PO SCH (08:37)
[2022-07-26] MEDS: SENNA 8.6 MG TAB PO SCH (08:37)
--- NOTE | 2022-07-26 18:24 | Hospitalist Progress Note ---
Date of Service July 26, 2022 Assessment & Plan (1) Dementia with behavioral disturbance: Plan: History of Dementia with mood disturbance Appreciate psychiatry Input Patient currently maintained on melatonin, quetiapine. Will continue to monitor, mood is stable currently Needs placement to a memory care facility Sinus bradycardia EKG suggestive of sinus bradycardia with occasional PACs Asymptomatic Urinary retention: Urethral stricture: Plan: H/O prostate cancer s/p prostatectomy and urethral stricture Per records, patient previously used to self cath. Hernández Catheter discontinued, patient voiding without difficulty Continue Flomax 07/22 Bladder scan: no urinary retention noted denies problems with voiding today monitor DVT PROPHYLAXIS SQ heparin Dispo -awaiting placement, case management following Admission and Anticipated Discharge Date Admission Date: May 30, 2022 Subjective No events overnight. No agitation. No complaints currently Physical Exam Physical Exam: Laying in bed, no acute distress, pleasant and comfortable Respiratory: breathing comfortably on room air, no wheezing/rhonchi/rales Cardiovascular: Regular rate and rhythm, no murmurs/rubs/gallops Gastrointestinal (Abdomen): Soft, non tender Musculoskeletal: No edema Neurologic: awake, spontaneously moving extremities Psychiatric: calm Results & Data Results & Data ([facility]) Vital Signs (Past 12 Hours) Vital Signs Temp Pulse Resp BP Pulse Ox O2 Del Method 07/26/22 14:43 36.4 C L 50 L 16 120/63 96 Room Air 07/26/22 07:45 36.7 C 50 L 16 154/64 H 94 Room Air
[2022-07-26] MEDS: MELATONIN 3 MG TAB PO SCH (20:00)
[2022-07-26] MEDS: QUEtiapine FUMARATE 25 MG TABLET PO SCH (20:00)
[2022-07-27] MEDS: TAMSULOSIN HCL 0.4 MG CAP PO SCH (09:06)
[2022-07-27] MEDS: HEPARIN SOD 5,000 UNIT/0.5 ML VIAL SQ SCH ×2 (09:06→20:15)
[2022-07-27] MEDS: SENNA 8.6 MG TAB PO SCH (09:06)
[2022-07-27] MEDS: POLYETHYLENE (MIRALAX) 17 GM PACK PO SCH (09:06)
--- NOTE | 2022-07-27 15:41 | Hospitalist Progress Note ---
Date of Service July 27, 2022 Assessment & Plan (1) Dementia with behavioral disturbance: Plan: History ofDementia with mood disturbance ? Agitation secondary to Urinary retention agitation resolved calm, cooperative continue meds Sinus bradycardia EKG suggestive of sinus bradycardia with occasional PACs Asymptomatic (2) UTI (urinary tract infection): Plan: UTI ruled out Urine/Blood Culture negative (3) Urinary retention: (4) Urethral stricture: Plan: H/O prostate cancer s/p prostatectomy and urethral stricture Per records, patient previously used to self cath. Hernández Catheter discontinued, patient voiding without difficulty Continue Flomax 07/27 No urinary symptoms DVT PROPHYLAXIS SQ heparin Dispo -awaiting placement, case management following Admission and Anticipated Discharge Date Admission Date: May 30, 2022 Subjective ff up for dementia, etc seen resting in bed, comfortable states he feels fine overall pleasantly confused no problems with voiding, no abdominal pain ambulating in the halls with no problems no other symptoms Review of Systems Review of Systems: all noted and negative except for above Physical Exam Physical Exam: General- oriented x 1, not in distress, speaks in sentences with no effort or accessory muscle use Eyes- anicteric Neck- no JVD Lungs- clear breath sounds bilaterally, no rales/wheezes Heart- normal rate, regular rhythm; no murmurs Abdomen- normal bowel sounds, nondistended, soft, no tenderness Extremities- no pretibial edema, no calf tenderness Neuro- alert, oriented x 1; no gross focal neurologic deficits Skin- warm & dry Results & Data Results & Data ([facility]) Vital Signs (Past 12 Hours) Vital Signs Temp Pulse Resp BP Pulse Ox O2 Del Method 07/27/22 15:24 36.7 C 59 L 16 136/62 93 Room Air 07/27/22 07:24 36.8 C 58 L 16 134/65 93 Room Air all noted and reviewed including below
[2022-07-27] MEDS: QUEtiapine FUMARATE 25 MG TABLET PO SCH (20:15)
[2022-07-27] MEDS: MELATONIN 3 MG TAB PO SCH (20:15)
[2022-07-28] MEDS: HEPARIN SOD 5,000 UNIT/0.5 ML VIAL SQ SCH ×2 (08:30→20:14)
[2022-07-28] MEDS: TAMSULOSIN HCL 0.4 MG CAP PO SCH (08:30)
[2022-07-28] MEDS: SENNA 8.6 MG TAB PO SCH (08:30)
[2022-07-28] MEDS: POLYETHYLENE (MIRALAX) 17 GM PACK PO SCH (08:30)
[2022-07-28] MEDS: ACETAMINOPHEN 325 MG TAB PO PRN (16:27)
--- NOTE | 2022-07-28 16:40 | Hospitalist Progress Note ---
Date of Service July 28, 2022 Assessment & Plan (1) Dementia with behavioral disturbance: Plan: History of Dementia with mood disturbance ? Agitation secondary to Urinary retention agitation resolved calm, cooperative Seen by psychiatry service continue Seroquel Sinus bradycardia EKG suggestive of sinus bradycardia with occasional PACs Asymptomatic (2) UTI (urinary tract infection): Plan: UTI ruled out Urine/Blood Culture negative (3) Urinary retention: (4) Urethral stricture: Plan: H/O prostate cancer s/p prostatectomy and urethral stricture Per records, patient previously used to self cath. Hernández Catheter discontinued, patient voiding without difficulty Continue Flomax No urinary symptoms DVT PROPHYLAXIS SQ heparin Dispo -transition to [facility] facility Admission and Anticipated Discharge Date Admission Date: May 30, 2022 Subjective Follow-up for dementia, agitation Seen sitting up in bed, not in distress States he feels fine overall Calm , Cooperative No other new symptoms next Review of Systems Review of Systems: all noted and negative except for above Physical Exam Physical Exam: General- oriented x 1-2, not in distress, speaks in sentences with no effort or accessory muscle use Eyes- anicteric Neck- no JVD Lungs- clear breath sounds bilaterally, no rales/wheezes Heart- normal rate, regular rhythm; no murmurs Abdomen- normal bowel sounds, nondistended, soft, nontender Extremities- no pretibial edema, no calf tenderness Neuro- alert, oriented x 1-2; no new gross focal neurologic deficits Skin- warm & dry Results & Data Results & Data ([facility]) Vital Signs (Past 12 Hours) Vital Signs Temp Pulse Resp BP Pulse Ox O2 Del Method 07/28/22 15:24 36.4 C L 65 16 154/60 H 96 Room Air 07/28/22 07:08 36.5 C 54 L 16 141/56 H 93 Room Air all noted and reviewed including below
[2022-07-28] MEDS: MELATONIN 3 MG TAB PO SCH (20:14)
[2022-07-28] MEDS: QUEtiapine FUMARATE 25 MG TABLET PO SCH (20:14)
[2022-07-29] MEDS: SENNA 8.6 MG TAB PO SCH (09:20)
[2022-07-29] MEDS: POLYETHYLENE (MIRALAX) 17 GM PACK PO SCH (09:20)
[2022-07-29] MEDS: HEPARIN SOD 5,000 UNIT/0.5 ML VIAL SQ SCH ×2 (09:20→20:00)
[2022-07-29] MEDS: TAMSULOSIN HCL 0.4 MG CAP PO SCH (09:20)
[2022-07-29] MEDS: QUEtiapine FUMARATE 25 MG TABLET PO SCH (20:00)
[2022-07-29] MEDS: MELATONIN 3 MG TAB PO SCH (20:00)
[2022-07-30 07:33] VITALS: PULSE 64; TEMP 97.7; O2SAT 93
[2022-07-30] MEDS: POLYETHYLENE (MIRALAX) 17 GM PACK PO SCH (09:13)
[2022-07-30] MEDS: HEPARIN SOD 5,000 UNIT/0.5 ML VIAL SQ SCH (09:13)
[2022-07-30] MEDS: TAMSULOSIN HCL 0.4 MG CAP PO SCH (09:13)
[2022-07-30] MEDS: SENNA 8.6 MG TAB PO SCH (09:18)
[2022-07-30 10:39] VITALS: BP 143/58
--- NOTE | 2022-07-30 17:59 | Discharge Summary ---
Discharge Summary Date of Service July 30, 2022 Notes For Next Care Provider Medication Changes From Visit Seroquel 25 mg p.o. at bedtime Admission HPI Per Admitting Provider 89-year-old male with PMH dementia, prostate cancer s/p prostatectomy, urethral stricture, and other problems listed below who presents to the ED for evaluation of agitation. History currently unobtainable from the patient. History obtained from review of medical record as well as patient's twin sister with whom he lives by Dr. Fan. Patient has been having increased agitation over the past few weeks. EMS called by sister today due to agitation. In the ED, patient received IM Haldol, IV lorazepam, IV Versed, IVF. He continues to have significant agitation. He was found to have urinary retention and Hernández catheter was placed. Labs unremarkable. Admission Exam Per Admitting Provider Physical Exam: Limited physical exam due to patient attempting to hit staff Constitutional: WD/WN, vitals as above Respiratory: normal respiratory effort, lungs clear to auscultation Cardiovascular: Rate/Rhythm: regular rate and regular rhythm Vessels: normal peripheral pulses Extremities: no edema Skin: no rashes, warm and dry Neurologic: moves all extremities Psychiatric: Orientation: alert; + not oriented to person, + not oriented to place, + not oriented to time and + uncooperative Patient continually attempting to hit staff, refused care, agitated Principal Dx & Hospital Course #1 = Principal Diagnosis (1) Dementia with behavioral disturbance: History of Dementia with mood disturbance ? Agitation secondary to Urinary retention agitation resolved calm, cooperative Seen by psychiatry service continue Seroquel Sinus bradycardia EKG suggestive of sinus bradycardia with occasional PACs Asymptomatic Urinary retention: Urethral stricture: H/O prostate cancer s/p prostatectomy and urethral stricture Per records, patient previously used to self cath. Hernández Catheter discontinued, patient voiding without difficulty Continue Flomax No urinary symptoms Abnormal CT chest finding Mild aneurysmal dilatation of the ascending thoracic aorta which measures up to 4.0 cm. Asymptomatic Follow-up as an outpatient DVT PROPHYLAXIS SQ heparin [facility] Discharge Exam General- oriented x 1-2, not in distress, speaks in sentences with no effort or accessory muscle use Eyes- anicteric Neck- no JVD Lungs- clear breath sounds bilaterally, no rales/wheezes Heart- normal rate, regular rhythm; no murmurs Abdomen- normal bowel sounds, nondistended, soft, nontender Extremities- no pretibial edema, no calf tenderness Neuro- alert, oriented x 1-2; no gross focal neurologic deficits Skin- warm & dry Updated Medication List Medication Instructions Recorded Confirmed Type melatonin 3 mg tablet 3 mg PO HS #30 tabs 07/30/22 Rx polyethylene glycol 3350 17 gram 17 g PO DAILY #30 ea 07/30/22 Rx oral powder packet (Miralax) quetiapine 25 mg tablet 25 mg PO HS 30 days #30 tabs 07/30/22 Rx sennosides 8.6 mg tablet (Senokot) 8.6 mg PO QAM 30 days #30 tabs 07/30/22 Rx tamsulosin 0.4 mg capsule 0.4 mg PO QAM 30 days #30 caps 07/30/22 Rx Hospital Stay Data Consultations 05/30/22 16:23 ED Decision to Admit Stat 05/30/22 19:35 Consult Psychiatry Routine Diagnostic Imagining Performed 05/30/22 12:53 CT abd pelvis wo con Stat CT SCAN OF THE ABDOMEN AND PELVIS WITHOUT IV CONTRAST CLINICAL HISTORY: Change in mental status. COMPARISON STUDY: Abdominal radiographs dated 07/11/2020. Chest CT dated 12/22/2014. TECHNIQUE: CT scan of the abdomen and pelvis is performed from the lung bases to the proximal femora. Images are reviewed in the axial, sagittal, and coronal planes. IV contrast was not administered for this examination as per the referring clinician. Note that the examination was performed in significantly suboptimal fashion without IV contrast. The examination is significantly degraded by motion artifact, as well as by streak artifact from the arms which could not be elevated above the abdomen. A dose lowering technique was utilized adhering to the principles of ALARA. CT DOSE: 2290.48 mGy.cm FINDINGS: Lung bases: There is mild aneurysmal dilatation of the ascending thoracic aorta. This measures up to 4.0 cm in diameter. The heart is enlarged and without pericardial effusion. The coronary arteries are densely calcified. The main pulmonary arteries are significantly dilated suggesting pulmonary artery hypertension. Evaluation of the lung bases is significantly degraded by motion artifact. Emphysematous change is suspected. There is an 8 mm right upper lobe pulmonary nodule in the minor fissure seen on image #55. This is unchanged from [address] and of doubtful significance. Scarring/atelectasis is present at both lung bases. No airspace consolidation or pleural effusion is identified. Liver: Evaluation of the liver is degraded by streak artifact. The unenhanced liver is normal in size, contour, and attenuation. There is no intrahepatic biliary ductal dilatation. Gallbladder: Surgically absent noting clips in the gallbladder fossa. Spleen: Normal in size and attenuation. Pancreas: The unenhanced pancreas is grossly unremarkable. Adrenal glands: Unremarkable. Kidneys: The unenhanced kidneys demonstrate cortical atrophy and are without hydronephrosis. No renal calculi are clearly identified. Bilateral renal cysts measure up to 3.5 cm. Abdominal vasculature: There is advanced atherosclerotic calcification and ectasia of the abdominal aorta. There is calcified intraluminal thrombus versus a chronic dissection of the mid abdominal aorta seen on image #216. Bowel: There is mild colonic diverticulosis without CT evidence of acute diverticulitis. No bowel obstruction is seen. There is moderate constipation. The appendix is normal as visualized. Peritoneum: There is no intraperitoneal free air or abdominal ascites. Lymphadenopathy: None. Pelvic viscera: The prostate gland is surgically absent. The bladder is significantly distended but otherwise grossly unremarkable. Surgical clips are seen throughout the pelvis. Skeletal structures: The skeletal structures are osteopenic. No lytic or blastic lesions are seen. There is advanced lumbosacral spondylosis. Bilateral pars defects are seen at L4 with grade 1 anterolisthesis at L4-L5. There is an age-indeterminate but chronic-appearing superior end plate compression deformity of L1. IMPRESSION: 1. Significantly suboptimal examination without IV contrast. There is also severe streak and motion artifact. 2. No acute infectious or inflammatory findings are identified in the abdomen or pelvis. 3. Cardiomegaly and emphysema. 4. Moderate constipation. 5. Bladder distention. 6. Mild aneurysmal dilatation of the ascending thoracic aorta which measures up to 4.0 cm. 7. Additional chronic findings as above. ACT 112: Negative or not required by law. CT head/brain wo con Stat Impression: Significant motion artifact. No definite acute intracranial abnormality. Pending Results Patient Have Any Pending Studies at Discharge: No Discharge Instructions Given to Patient (Per Discharging Provider) Please refer to accompanying hospital discharge summary. Total Time Total Time Spent Total Time Spent (In Minutes): >30 minutes
== END 2022-07-30 12:07 | DRG 884 ==
LOC: ED 12:14 → EDINP 17:38 → SUATTDRO 17:38 → 3N 23:18